=== PATIENT | male | born 2000 | race Two or more races ===

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

== ENCOUNTER 2021-02-09 20:09 | Emergency (ER) | payer MEDICAID, SELFPAY ==
--- NOTE | ~2021-02-09 | XR_ITS ---
EXAMINATION: XR CHEST CLINICAL INFORMATION: Fever COMPARISON: 08/03/2020 TECHNIQUE: Frontal view of the chest was obtained. FINDINGS: No significant abnormality is noted involving the heart, lungs, mediastinum, bony thorax or soft tissues. Lungs are better expanded when compared to prior study. XR/XR chest 1V IMPRESSION: Unremarkable examination.
[2021-02-09 20:25] VITALS: BP 138/71; PULSE 90; RESP 20; TEMP 39.5; O2SAT 96; BMI 38.5
[2021-02-09] MEDS: Acetaminophen 325 MG TABLET 650 MG PO (20:30)
--- NOTE | 2021-02-09 20:32 | PC.NURSE ---
Covid swab obtained and sent. Pt medicated with Tylenol due to oral temp of 103.1
--- NOTE | 2021-02-09 21:35 | ED_ITS ---
HPI - Fever General Chief Complaint: Fever Stated Complaint: flu like Time Seen by Provider: 02/09/21 21:23 Source: patient Mode of arrival: ambulatory Limitations: no limitations History of Present Illness HPI Narrative: Patient comes emergency room complaining of fever, headache, sore throat. All his symptoms started today. Patient denies cough, no shortness of breath. Patient states that he took NyQuil during the day to try to help him sleep with no relief. Patient also complaining of congestion. MD elicited complaint: fever Related Data Previous Rx's Medication Instructions Recorded amoxicillin 500 mg PO Q12H #20 tab 08/03/20 ondansetron HCl [Zofran] 4 mg PO Q8H PRN #14 tab 08/03/20 azithromycin 500 mg PO DAILY 6 Days #6 tab 02/09/21 Allergies Allergy/AdvReac Type Severity Reaction Status Date / Time No Known Allergies Allergy Verified 08/03/20 09:47 [No Known Allergies*] Review of Systems Review of Systems: Constitutional : No Weight loss, No Fever, No Chills, No Night Sweats, No Fatigue, No Malaise ENT/Mouth : No Hearing loss, No Ear Pain, complaining of nasal congestion, no hoarseness, complaining of sore throat, No Rhinorrhea, No Swallowing Difficulty Eyes: No Eye Pain, No Swelling, No Redness, No Foreign Body, No Discharge, No Vision Changes Cardiovascular : No Chest Pain, No SOB, No Dyspnea on Exertion, No Orthopnea, No Edema, No Palpitations Respiratory : No Cough, No Sputum, No Wheezing, No Smoke Exposure, No Dyspnea Gastrointestinal : No Nausea, No Vomiting, No Diarrhea, No Constipation, No abdominal Pain, No Hematochezia, No Melena Genitourinary : no irregular bleeding, No Dysuria, No Urinary Frequency, No Hematuria, No Urinary Incontinence, No Urgency, No Flank Pain, No Urinary Flow Changes, No Hesitancy Musculoskeletal : No joint pain, No Myalgias, No Joint Swelling Skin : No Skin Lesions, No rash Neuro : No Weakness, No Numbness, No Paresthesias, No Loss of Consciousness, No Dizziness, No Headache Psych : No Anxiety/Panic, No Depression, No SI/HI/AH/VH, No Social Issues, Heme/Lymph: No Bruising, No Bleeding,No Lymphadenopathy Endocrine : No Polyuria, No Polydipsia, No Temperature Intolerance PMFSH Social History Social History Alcohol intake: never Smoking Status: Heavy tobacco smoker Advance Directives: No Advance Directives Information Provided: No Physical Exam Vital Signs: Vital Signs: Last Vital Signs Temp 103.1 F H 02/09/21 20:25 Pulse 90 02/09/21 20:25 Resp 20 02/09/21 20:25 BP 138/71 02/09/21 20:25 Pulse Ox 96 02/09/21 20:25 Body Mass Index 38.5 Appearance: Alert. Oriented X3. No acute distress. Eyes: Pupils equal, round and reactive to light. ENT: Erythematous pharynx, no exudates Neck: Normal inspection. Neck supple. No lymph nodes noted. No crepitus CVS: Normal heart rate and rhythm. Pulses normal. Normal S1 and S2 Respiratory: No respiratory distress. Breath sounds normal. No Wheezing. No rales Abdomen: Soft and nontender. No rigidity. No distention. good BS x4 Skin: Skin warm and dry. Normal skin color. Normal skin turgor. Extremities: No lower extremity edema. No lower extremity edema. No La cerations. No Rash Neuro: Oriented X 3. No motor deficit. No sensory deficit. Moving all extermities. No slurred speech. Course Course Course Narrative: I discussed the labs with the patient. Strep is pending. Given his high fever, previous infections of pharyngitis, we will go ahead and treat with antibiotic. MDM - Fever Lab Data Labs: Lab Results 02/09/21 Range/Units 20:31 COVID-19 ([facility]) Negative (Negative) COVID-19 Clin Com See Note Imaging Data Chest x-ray: Radiologist's impression: No significant abnormality is noted involving the heart, lungs, mediastinum, bony thorax or soft tissues. Lungs are better expanded when compared to prior study. XR/XR chest 1V IMPRESSION: Unremarkable examination. Discharge Plan Discharge Clinical Impression: Pharyngitis Qualifiers: Pharyngitis/tonsillitis etiology: unspecified etiology Qualified Code(s): J02.9 - Acute pharyngitis, unspecified Patient Disposition: Home, Self-Care Instructions: Pharyngitis (ED) Additional Instructions: Please follow-up with your primary care physician tomorrow. If you have any worsening or new symptoms, please return to the emergency room or call 911 Prescriptions: New azithromycin 500 mg tablet 500 mg PO DAILY 6 Days Qty: 6 RF: 0 No Action amoxicillin 500 mg tablet 500 mg PO Q12H Qty: 20 RF: 0 ondansetron HCl [Zofran] 4 mg tablet 4 mg PO Q8H PRN (Reason: nausea and vomiting) Qty: 14 RF: 0
[2021-02-09 21:36] LABS: COVID-19 Test Negative (Negative); IDNOW Serial# 9DD0AD1C
[2021-02-09] MEDS: Ibuprofen 600 MG TABLET PO (22:00)
[2021-02-09 23:27] VITALS: PULSE 86; RESP 16
[2021-02-09] MEDS: Amoxicillin/Potassium Clav 875 MG TABLET PO (23:28)
[2021-02-09] MEDS: Azithromycin 500 MG TABLET PO (23:30)
[2021-02-09 23:43] LABS: IDNOW Serial# 08D9AD1C; Strep A Nucleic Acid Positive (Negative)
== END 2021-02-10 00:05 | disposition home or self-care (01) ==
PROVIDERS: Emergency Provider Emergency Medicine
DX: J02.0 Streptococcal pharyngitis (principal); Z20.822 Contact with and (suspected) exposure to COVID-19; R50.9 Fever, unspecified; R51.9 Headache, unspecified; F17.210 Nicotine dependence, cigarettes, uncomplicated
CPT/HCPCS: 36415; 71045; 87635; 99283

== ENCOUNTER 2021-05-14 21:18 | Emergency (ER) | payer MEDICAID, SELFPAY ==
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
[2021-05-14 22:01] VITALS: BP 114/78; PULSE 95; RESP 16; TEMP 37.1; O2SAT 99; BMI 37.5
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
[2021-05-14] MEDS: Diphth,Pertus(ACell),Tet Adult 0.5 ML SYRINGE IM (23:51)
--- NOTE | 2021-05-14 23:51 | PC.NURSE ---
PT MEDICATED WITH TETANUS TO LEFT UPPER ARM. PT AWAITING FOR MD TO LOOK AT FINGER.
[2021-05-14] MEDS: Lidocaine HCl 1 % 20 ML VIAL SUBCUT (23:52)
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
[2021-05-15] MEDS: oxyCODONE HCl Immed Release 5 MG TABLET PO (02:44)
[2021-05-15] MEDS: Ibuprofen 800 MG TABLET PO (02:44)
[2021-05-15] MEDS: Ondansetron ODT 4 MG TAB.RAPDIS TRANSLINGU (02:53)
[2021-05-15] MEDS: Amoxicillin/Potassium Clav 875 MG TABLET PO (02:53)
[2021-05-15 02:56] VITALS: BP 120/87; PULSE 90; RESP 18; O2SAT 97
== END 2021-05-15 02:58 | disposition home or self-care (01) ==
PROVIDERS: Emergency Provider Emergency Medicine
DX: L03.011 Cellulitis of right finger (principal); S61.256A Open bite of right little finger without damage to nail, initial encounter; S60.416A Abrasion of right little finger, initial encounter; Y04.1XXA Assault by human bite, initial encounter; Y93.89 Activity, other specified; Y92.9 Unspecified place or not applicable; Y99.9 Unspecified external cause status
CPT/HCPCS: 73140; 90471; 90715; 99284

== ENCOUNTER 2021-05-15 18:31 | Emergency (ER) | payer MEDICAID, SELFPAY ==
[2021-05-15 18:33] VITALS: BP 140/84; PULSE 97; RESP 18; TEMP 37; O2SAT 100; BMI 39.9
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
[2021-05-15 20:00] VITALS: BP 138/76; PULSE 90; RESP 18; TEMP 36.8; O2SAT 98
[2021-05-15] MEDS: Oxymetazoline HCl 0.05 % Nasal 15 ML SPRAY 2 SPRAY NOSTRIL-B (20:07)
--- NOTE | 2021-05-15 20:09 | PC.NURSE ---
patient a&ox3, family at bedside, vss stable, provider medicated patient, discharge pending
== END 2021-05-15 20:13 | disposition home or self-care (01) ==
PROVIDERS: Emergency Provider Emergency Medicine
DX: R04.0 Epistaxis (principal); Z79.899 Other long term (current) drug therapy
CPT/HCPCS: 99283; 99284

== ENCOUNTER → 2021-05-16 11:59 | Outpatient (BNVA) | payer MEDICAID, SELFPAY | PROVIDERS: Visit Provider Physician Assistant | DX: S61.256A Open bite of right little finger without damage to nail, initial encounter (principal); W50.3XXA Accidental bite by another person, initial encounter | CPT/HCPCS: 99202 ==

== ENCOUNTER 2021-05-17 09:18 | Day surgery (SDC) | payer MEDICAID, SELFPAY ==
[2021-05-17] VITALS (9 sets, daily range): BP systolic 126–145; BP diastolic 77–90; PULSE 67–94; RESP 16–18; TEMP 36.4–36.5; O2SAT 93–98; BMI 38.7
--- NOTE | ~2021-05-17 | XR_ITS ---
EXAMINATION: XR CHEST CLINICAL INFORMATION: Clinical question of aspiration pneumonia. COMPARISON: Radiographs dated 02/09/2021. TECHNIQUE: Frontal view of the chest was obtained. FINDINGS: No significant abnormality is noted involving the heart, lungs, mediastinum, bony thorax or soft tissues. Lung volumes are somewhat diminished, with generalized crowding of bronchovascular markings. XR/XR chest 1V IMPRESSION: Unremarkable examination.
[2021-05-17] MEDS: Lactated Ringers 1,000 ML 100 ML IVCONT (10:32)
--- NOTE | 2021-05-17 11:32 | MHC.SHP ---
Pre-Procedural Eval Section A Date of Service: 05/17/21 The patient is an INPATIENT: No Changes since office visit: No Cold of Flu in the past 2 weeks, No New Medical Problems, No Changes in Medication and No Patient answered all questions The History & Physical has been completed within 30 days and I have reviewed it.: Yes Section B Chief Complaint: bite right small finger Allergies: Allergies Allergy/AdvReac Type Severity Reaction Status Date / Time No Known Allergies Allergy Verified 05/16/21 12:11 [No Known Allergies*] Plan I have reviewed the history and physical and performed a pertinent physical examination on my patient. No changes have occurred unless specified.
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
--- NOTE | 2021-05-17 13:57 | PC.NURSE ---
PATIENT LAYING ON LEFT SIDE PER HIS COMFORT. HOB 20 DEGREES. NO SOB OR RESP DISTRESS. NO ACTIVE BLEEDING. RIGHT UPPER HAND ELEVATED WITH ICE PACK. DRY AND INTACT.
--- NOTE | 2021-05-17 14:03 | PC.NURSE ---
ANESTHESIA BY BEDSIDE REEVAL PATIENT. MD RIVAS BY BEDSIDE SPEAKING TO PATIENT. CALLED PHARMACY FOR NEW ANTIBIOTIC ORDER BEFORE PATIENT LEAVES.
--- NOTE | 2021-05-17 14:04 | PC.NURSE ---
PATIENT STATES HES BEEN HAVING NOSE BLEEDS FOR THE LAST THREE DAYS.
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
[2021-05-17] MEDS: Ampicillin Sodium/Sulbactam Na 3 GM in 0.9 % Sodium Chloride 100 ML IV (14:22)
== END 2021-05-17 15:40 | disposition home or self-care (01) ==
PROVIDERS: Visit Provider Orthopaedic Surgery
PROC: (CPT 26080; principal; 2021-05-17 13:00)
DX: S61.256A Open bite of right little finger without damage to nail, initial encounter (principal); L08.9 Local infection of the skin and subcutaneous tissue, unspecified; B95.0 Streptococcus, group A, as the cause of diseases classified elsewhere; Y04.1XXA Assault by human bite, initial encounter; Y93.89 Activity, other specified; Y92.9 Unspecified place or not applicable; Y99.8 Other external cause status; E66.9 Obesity, unspecified
CPT/HCPCS: 26080; 26020; 71045; 87071; 87147; 87205; J0295; J0690; J1100; J2250

== ENCOUNTER → 2021-05-20 11:00 | Outpatient (BNVA) | payer MEDICAID, SELFPAY | PROVIDERS: PCP Nurse Practitioner Primary Care; Visit Provider Physician Assistant | DX: S61.259D Open bite of unspecified finger without damage to nail, subsequent encounter (principal); W50.3XXA Accidental bite by another person, initial encounter | CPT/HCPCS: 99212 ==

== ENCOUNTER 2021-06-08 18:21 | Emergency (ER) | payer MEDICAID, SELFPAY ==
--- NOTE | ~2021-06-08 | XR_ITS ---
EXAMINATION: XR FINGER, RIGHT CLINICAL INFORMATION: Fifth finger trauma. Evaluate for fracture. COMPARISON: Right finger radiographs dated 05/14/2021. TECHNIQUE: PA view of the right hand as well as oblique and lateral views of the right small finger. FINDINGS: Mildly displaced, oblique fracture through the base of the 2nd middle phalanx which contacts the anterior articular surface. Findings are new when compared to the prior examination. Prominent circumferential soft tissue swelling throughout the small finger. No abnormal soft tissue calcification or radiopaque foreign body. XR/XR finger RT min 2V IMPRESSION: 1. Mildly displaced, oblique fracture through the volar base of the 2nd middle phalanx which contacts the articular surface. 2. Prominent 5th finger soft tissue swelling.
[2021-06-08 19:57] VITALS: BP 131/78; PULSE 83; RESP 18; TEMP 36.8; O2SAT 98; BMI 32.5
[2021-06-08] MEDS: oxyCODONE HCl Immed Release 5 MG TABLET PO (20:18)
[2021-06-08 20:30] VITALS: BP 128/60; PULSE 66; RESP 16; TEMP 35.5; O2SAT 98
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
== END 2021-06-08 21:48 | disposition home or self-care (01) ==
PROVIDERS: Emergency Provider Emergency Medicine Emergency Medical Services; PCP Nurse Practitioner Primary Care
DX: L03.011 Cellulitis of right finger (principal); Z79.899 Other long term (current) drug therapy
CPT/HCPCS: 73140; 99283; 99284

== ENCOUNTER 2021-11-01 17:35 | Emergency (ER) | payer MEDICAID, SELFPAY ==
[2021-11-01 18:03] VITALS: BP 123/78; PULSE 99; RESP 18; TEMP 37; O2SAT 98; BMI 38.7
--- NOTE | 2021-11-01 18:41 | ED_ITS ---
HPI - Ear Problem General Chief complaint: Ear Problems Stated complaint: right ear blocked Time Seen by Provider: 11/01/21 18:30 Source: patient Mode of arrival: ambulatory Limitations: no limitations History of Present Illness HPI Narrative: 21-year-old male presenting to the ED with complaints of right ear pain/decreased hearing since yesterday reports that he has been using Q-tips without any symptomatic relief. Denies any other symptoms including fevers, sore throat, nasal congestion, cough, chest pain shortness of breath, nausea/vomiting/diarrhea constipation abdominal pain or any rashes or any recent swimming or any other symptoms complaints or concerns at this time. MD Complaint: ear pain and decreased hearing Location: right ear Duration: constant Severity: mild Relieving factors: nothing Exacerbating factors: nothing Discharge from ear: no Treatment prior to arrival: attempt at ear wax removal (With Q-tip) Related Data Previous Rx's Medication Instructions Recorded amoxicillin 500 mg tablet 500 mg PO Q12H #20 tab 08/03/20 ondansetron HCl 4 mg tablet 4 mg PO Q8H PRN #14 tab 08/03/20 (Zofran) azithromycin 500 mg tablet 500 mg PO DAILY 6 Days #6 tab 02/09/21 amoxicillin 875 mg-potassium 1 tab PO Q12H 10 Days #20 tab 05/15/21 clavulanate 125 mg tablet (Augmentin) ibuprofen 800 mg tablet 800 mg PO Q8H PRN #30 tab 05/15/21 amoxicillin 875 mg-potassium 1 tab PO BID 10 Days #20 tab 05/16/21 clavulanate 125 mg tablet (Augmentin) oxycodone-acetaminophen 5 mg-325 1 tab PO Q6H PRN #10 tab 05/17/21 mg tablet doxycycline hyclate 100 mg tablet 100 mg PO Q12H 7 Days #14 tab 06/08/21 oxycodone 5 mg tablet 5 mg PO Q4H PRN #10 tab 06/08/21 amoxicillin 875 mg-potassium 1 tab PO BID 10 Days #20 tab 11/01/21 clavulanate 125 mg tablet (Augmentin) Allergies Allergy/AdvReac Type Severity Reaction Status Date / Time No Known Allergies Allergy Verified 11/01/21 18:02 [No Known Allergies*] Review of Systems Verdana 4l Review of Systems: Verdana 4d Verdana 4d Constitutional : No Weight loss, No Fever, No Chills, No Night Sweats, No Fatigue, No Malaise ENT/Mouth : + ear pain/decreased Hearing loss, No Nasal Congestion, No Sinus Pain, No Hoarseness, No sore throat, No Rhinorrhea, No Swallowing DifficultyDifficulty Eyes: No Eye Pain, No Swelling, No Redness, No Foreign Body, No Discharge, No Vision Changes Cardiovascular : No Chest Pain, No SOB, No Dyspnea on Exertion, No Orthopnea, No Edema, No Palpitations Respiratory : No Cough, No Sputum, No Wheezing, No Smoke Exposure, No Dyspnea Gastrointestinal : No Nausea, No Vomiting, No Diarrhea, No Constipation, No abdominal Pain, No Hematochezia, No Melena Genitourinary : no irregular bleeding, No Dysuria, No Urinary Frequency, No Hematuria, No Urinary Incontinence, No Urgency, No Flank Pain, No Urinary Flow Changes, No Hesitancy Musculoskeletal : No joint pain, No Myalgias, No Joint Swelling Skin : No Skin Lesions, No rash Neuro : No Weakness, No Numbness, No Paresthesias, No Loss of Consciousness, No Dizziness, No Headache Psych : No Anxiety/Panic, No Depression, No SI/HI/AH/VH, No Social Issues, Heme/Lymph: No Bruising, No Bleeding,No Lymphadenopathy Endocrine : No Polyuria, No Polydipsia, No Temperature Intolerance Yes all other systems are reviewed and are negative [facility] Past Medical History Attestation statement: The following information was validated with the patient. 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 Blood pressure normal. Heart rate normal. Respiration rate normal. Temperature normal. Oxygen saturation normal. Appearance: Alert. Oriented X3. No acute distress. Head: Normal external exam. Normocephalic. Atraumatic. Eyes: PERRLA. EOMI. Conjunctiva and sclera normal. Eyelids normal. ENT: Bilateral cerumen impaction noted. Patient is now status post cerumen impaction removal and bilateral tympanic membranes are intact although they are erythematous and bulging with decreased light reflex consistent with otitis media. The tympanic membrane is not perforated. Pharynx normal. Uvula midline. Moist mucous membranes. No trismus noted. No drooling noted. No muffled voice noted. Neck: Normal inspection. Neck supple. FROM. No adenopathy. Thyroid Normal. No meningeal signs. No neck mass noted. CVS: Normal heart rate and rhythm. Heart sound normal. Pulses normal throughout. No murmurs/rales/gallops. Respiratory: No respiratory distress. Painless inspiration. Breath sounds normal. No wheezes/rales/rhonchi noted. Chest nontender. No accessory muscle usage noted or decreased air movement noted. Back: Full range of motion noted. No rashes/lesion/induration/fluctuance or signs of infection noted. Skin: Skin warm and dry. Normal skin color. Normal skin turgor. No rashes/lesions/lacerations noted. Extremities: Extremities exhibit normal range of motion. Extremities nontender. Neuro: Oriented X 3. No motor deficit. No sensory deficit. Reflexes normal. Normal steady gait. No focal neuro deficits noted. Vascular: + radial pulses Normal cap refill. No cyanosis noted to upper extremity nails Course Course Course Narrative: 21-year-old male presenting to the ED with complaints of right ear pain/decreased hearing since yesterday reports that he has been using Q-tips without any symptomatic relief. Denies any other symptoms including fevers, sore throat, nasal congestion, cough, chest pain shortness of breath, nausea/vomiting/diarrhea constipation abdominal pain or any rashes or any recent swimming or any other symptoms complaints or concerns at this time. Patient now status post bilateral cerumen impaction removal with peroxide. Patient tolerated procedure well. No complications. Patient noted to have bilateral otitis media. Tympanic membranes are intact not perforated. Patient denies any other symptoms. Therefore at this time will DC home with antibiotics for bilateral infection instructions return if any new or worsening symptoms to follow up with primary care provider. Patient understands agrees with this plan. Procedures Ear Wax Removal Both Ears: Cerumenolytic Used: other (Peroxide) Results: Re-examined: cerumen removed completely TM Examination: TM(s) erythematous and other (Tympanic membranes are intact not perforated after cerumen removal bilateral) Ear Canal Exam: atraumatic Patient Tolerated Procedure: well and no complications Complications: no problems Technique: ear canal irrigated [facility] - Ear Medical Records Attestation: I reviewed the patient's medical records. Discharge Plan Discharge Clinical Impression: Otitis media, Bilateral impacted cerumen Patient Disposition: Home, Self-Care Instructions: Ear Infection (ED) Prescriptions: New amoxicillin-pot clavulanate [Augmentin] 875-125 mg tablet 1 tab PO BID 10 Days Qty: 20 0RF No Action amoxicillin 500 mg tablet 500 mg PO Q12H Qty: 20 0RF ondansetron HCl [Zofran] 4 mg tablet 4 mg PO Q8H PRN (Reason: nausea and vomiting) Qty: 14 0RF azithromycin 500 mg tablet 500 mg PO DAILY 6 Days Qty: 6 0RF amoxicillin-pot clavulanate [Augmentin] 875-125 mg tablet 1 tab PO Q12H 10 Days Qty: 20 0RF ibuprofen 800 mg tablet 800 mg PO Q8H PRN (Reason: pain) Qty: 30 0RF oxycodone-acetaminophen 5-325 mg tablet 1 tab PO Q6H PRN (Reason: pain) Qty: 10 0RF doxycycline hyclate 100 mg tablet 100 mg PO Q12H 7 Days Qty: 14 0RF oxycodone 5 mg tablet 5 mg PO Q4H PRN (Reason: pain) Qty: 10 0RF Rx Instructions: Patient may request partial fill amoxicillin-pot clavulanate [Augmentin] 875-125 mg tablet 1 tab PO BID 10 Days Qty: 20 0RF Referrals: [facility] [Primary Care Provider] - 2 days Print Language: Greenlandic
== END 2021-11-01 19:13 | disposition home or self-care (01) ==
PROVIDERS: Emergency Provider Internal Medicine
DX: H66.93 Otitis media, unspecified, bilateral (principal); H61.23 Impacted cerumen, bilateral
CPT/HCPCS: 69209; 99283

== ENCOUNTER 2022-01-17 20:21 | Emergency (ER) | payer MEDICAID, SELFPAY ==
[2022-01-17 20:58] VITALS: BP 109/69; PULSE 109; RESP 20; TEMP 37.1; O2SAT 98; BMI 39.9
[2022-01-17 21:35] LABS: COVID-19 Test Negative (Negative); IDNOW Serial# 16C4AD1C
[2022-01-17 21:36] LABS: Influenza A Positive (Negative); Influenza B2 Negative (Negative)
== END 2022-01-17 22:09 | disposition left against medical advice (07) ==
PROVIDERS: Emergency Provider Emergency Medicine
DX: M79.10 Myalgia, unspecified site (principal); R11.2 Nausea with vomiting, unspecified; Z20.822 Contact with and (suspected) exposure to COVID-19
CPT/HCPCS: 87502; 87635; 99282; 99283

== ENCOUNTER 2022-04-06 10:51 | Emergency (ER) | payer MEDICAID, SELFPAY ==
--- NOTE | ~2022-04-06 | XR_ITS ---
EXAMINATION: XR RIBS, LEFT CLINICAL INFORMATION: Rib pain after injury COMPARISON: Chest radiograph 05/17/2021 TECHNIQUE: Single view chest with 4 additional views of the left ribs were obtained. FINDINGS: Lungs are clear. No consolidation, pneumothorax, or pleural effusion. The cardiomediastinal silhouette and pulmonary vasculature are normal. Osseous structures are unremarkable. Ribs are intact. No fractures are identified. XR/XR ribs LT min 3V w CXR1V IMPRESSION: Unremarkable examination.
[2022-04-06 11:35] VITALS: BP 119/70; PULSE 85; RESP 16; TEMP 36.4; O2SAT 98; BMI 38.7
--- NOTE | 2022-04-06 12:12 | ED.GENADULT ---
HPI - General Adult General Chief complaint: General Medical Stated complaint: L rib pain Time Seen by Provider: 04/06/22 12:12 Source: patient Mode of arrival: ambulatory Limitations: no limitations History of Present Illness HPI narrative: Patient is a 22 year old male presenting to the emergency department today with left sided rib pain. Patient states that he was playing basketball yesterday when he tripped and fell, then was kicked by the person he was playing with, in the left ribs. Patient denies hitting hit head with the incident. Patient denies any loss of consciousness from the incident. Patient denies any dizziness, lightheadedness, abdominal pain, nausea, vomiting, fever, chills, blurry vision, double vision, loss of vision, chest pain, difficulty breathing, shortness of breath, back pain, night sweats, pain with urination, increased urinary frequency, increased urinary urgency, blood in his urine or stool, syncope or a near syncopal episode, recent trauma or falls, bowel incontinence, bladder incontinence, bowel retention, bladder retention, or any other complaints at this time. Onset (ago): day(s) (1) Location: left (torso) Radiation: non-radiation Severity: mild Severity scale (1-10): 1 Quality: dull Pain Consistency: constant Relieving factors: none Exacerbating factors: none Associated symptoms: denies other symptoms Treatments prior to arrival: none Related Data Previous Rx's Medication Instructions Recorded amoxicillin 500 mg tablet 500 mg PO Q12H #20 tabs 08/03/20 ondansetron HCl 4 mg tablet 4 mg PO Q8H PRN nausea and 08/03/20 (Zofran) vomiting #14 tabs azithromycin 500 mg tablet 500 mg PO DAILY 6 days #6 tabs 02/09/21 amoxicillin 875 mg-potassium 1 tab PO Q12H 10 days #20 tabs 05/15/21 clavulanate 125 mg tablet (Augmentin) ibuprofen 800 mg tablet 800 mg PO Q8H PRN pain #30 tabs 05/15/21 amoxicillin 875 mg-potassium 1 tab PO BID 10 days #20 tabs 05/16/21 clavulanate 125 mg tablet (Augmentin) oxycodone-acetaminophen 5 mg-325 1 tab PO Q6H PRN pain #10 tabs 05/17/21 mg tablet doxycycline hyclate 100 mg tablet 100 mg PO Q12H 7 days #14 tabs 06/08/21 oxycodone 5 mg tablet 5 mg PO Q4H PRN pain #10 tabs 06/08/21 amoxicillin 875 mg-potassium 1 tab PO BID 10 days #20 tabs 11/01/21 clavulanate 125 mg tablet (Augmentin) Allergies Allergy/AdvReac Type Severity Reaction Status Date / Time No Known Allergies Allergy Verified 11/01/21 18:02 [No Known Allergies*] Review of Systems Constitutional: Constitutional: Reports no additional constitutional complaints, Denies chills, Denies fever(s) and Denies night sweats Eyes: Eyes: Reports no additional eye complaints, Denies blurry vision, Denies change in vision, Denies diplopia, Denies eye discharge, Denies loss of vision and Denies eye pain ENT: Denies dizziness Cardiovascular: Cardiovascular: Reports no additional cardiovascular complaints, Denies chest pain, Denies lightheadedness, Denies Loss of Consciousness and Denies dyspnea Respiratory: Respiratory: Reports no additional respiratory complaints and Denies dyspnea Gastrointestinal: Gastrointestinal: Reports no additional gastrointestinal complaints, Denies abdominal pain, Denies melena, Denies hematochezia, Denies change in bowel habits and Denies change in stool character Genitourinary: Genitourinary: Reports no additional male genitourinary complaints, Denies hematuria, Denies oliguria, Denies difficulty urinating, Denies dysuria, Denies urinary frequency, Denies urinary hesitancy, Denies urinary incontinence and Denies urinary urgency Musculoskeletal: Musculoskeletal: Reports no additional musculoskeletal complaints, Denies numbness and Denies tingling Comments: left torso pain Neurologic: Denies dizziness, Denies loss of vision, Denies numbness and Denies tingling Psychiatric: Psychiatric: Reports no additional psychiatric complaints Endocrine: Endocrine: Reports no additional endocrine complaints Hematologic/Lymphatic: Hematologic/Lymphatic: Reports no additional hematologic/lymphatic complaints Allergic/Immunologic: Allergic/Immunologic: Reports no additional allergic/immunologic complaints PMFSH Past Medical History Attestation statement: The following information was validated with the patient. Source: old records reviewed Medical History Epistaxis, recurrent Obesity (BMI 35.0-39.9 without comorbidity) Surgical History Hx of appendectomy Social History Social History Alcohol intake: never Patient Tobacco Use Status: Never used Tobacco Advance Directives: Yes Advance Directives Information Provided: Yes Advance Directives on File: No Current occupational status: previously employed Current occupation: rt handed Physical Exam ED Vital Signs: Vital Signs - 24 hr 04/06/22 11:35 Temperature 97.6 F Pulse Rate 85 Respiratory Rate 16 Blood Pressure 119/70 Pulse Oximetry 98 Oxygen Delivery Method Room Air BMI result Body Mass Index 38.7 Const General: cooperative, no acute distress, alert and awake Nutritional Appearance: well nourished Orientation/consciousness: patient oriented x3 Limitations: no limitations HENMT Head: Yes normal to inspection and Yes atraumatic Ears: hearing grossly normal bilaterally and external ears normal General nose exam: Normal external nose present, no nasal discharge noted and no epistaxis Face and sinus: Yes normal facial exam, No abrasion and No laceration Mouth: Normal oral and palatal mucosa present, no drooling and no muffled voice Eyes General: appearance normal, both eyes and all related structures Periorbital: periorbital findings normal Eyelids: Yes eyelids normal Conjunctivae: conjunctivae normal Pupils: Equal, round and reactive pupils present EOM: EOMs intact bilaterally Neck Neck: Yes normal visual inspection, Yes full ROM and Yes no lymphadenopathy Chest Chest palpation & inspection: normal inspection of the chest Resp Effort & Inspection: normal respiratory effort and able to speak in complete sentences Auscultation: clear to auscultation bilaterally Cardio Rate: regular rate Rhythm: regular rhythm GI Inspection: Yes normal to inspection Neuro General: patient oriented x3 and moves all extremities Cranial nerves: Yes Equal, round and reactive pupils present Cognition (Neuro): normal cognition Motor exam (neuro): 5/5 motor strength present throughout Sensory Exam: Normal double simultaneous stimulation for sensation Coordination: [id number] test normal Extrem General: Yes normal to inspection, Yes full ROM and Yes capillary refill normal Psych Appearance: grossly normal Mental Status: mental status grossly normal Affect: normal affect Attitude: cooperative Thought process: Normal thought process present Thought content: Normal thought content present Insight: Good insight present (Psych) Medical Decision Making MDM Narrative Medical decision making narrative: Patient is a 22 year old male presenting to the emergency department today with left rib pain. Patient's physical exam was unremarkable. Patient's chest x-ray showed no acute process. I explained my physical exam findings as well as all test results to the patient. I answered all questions asked by the patient. I stressed the importance of the patient taking his medication as prescribed. I stressed the importance of the patient following up with his primary care provider. I stressed the importance of the patient returning to the emergency department immediately if his symptoms were to worsen or if he were to develop any dizziness, shortness of breath, difficulty breathing, chest pain, blurry vision, loss of vision, nausea, vomiting, abdominal pain, fever, chills, back pain, or any other complaints. Patient verbalized agreement and understanding with this treatment plan and discharge. Differential Diagnosis Differential Diagnosis: rib contusion, rib fracture Medical Records Medical records reviewed: Yes I reviewed the patient's medical records. Imaging Data Chest x-ray: Attestation: I personally reviewed and interpreted this imaging study as follows: My impression: No acute process. Radiologist's impression: EXAMINATION: XR RIBS, LEFT CLINICAL INFORMATION: Rib pain after injury COMPARISON: Chest radiograph 05/17/2021 TECHNIQUE: Single view chest with 4 additional views of the left ribs were obtained. FINDINGS: Lungs are clear. No consolidation, pneumothorax, or pleural effusion. The cardiomediastinal silhouette and pulmonary vasculature are normal. Osseous structures are unremarkable. Ribs are intact. No fractures are identified. XR/XR ribs LT min 3V w CXR1V IMPRESSION: Unremarkable examination. Dictated By: Seymour Spangler MD Signed By: Electronically signed by Seymour Spangler MD 04/06/22 1788 Discharge Plan Discharge Clinical Impression: Pain in rib Patient Disposition: Home, Self-Care Instructions: Chest Pain (DC) Additional Instructions: Follow up with your primary care provider. Return to the emergency department immediately if your symptoms worsen or if you develop any dizziness, shortness of breath, difficulty breathing, chest pain, blurry vision, loss of vision, nausea, vomiting, abdominal pain, fever, chills, back pain, or any other complaints. Prescriptions: No Action amoxicillin 500 mg tablet 500 mg PO Q12H Qty: 20 0RF ondansetron HCl [Zofran] 4 mg tablet 4 mg PO Q8H PRN (Reason: nausea and vomiting) Qty: 14 0RF azithromycin 500 mg tablet 500 mg PO DAILY 6 Days Qty: 6 0RF amoxicillin-pot clavulanate [Augmentin] 875-125 mg tablet 1 tab PO Q12H 10 Days Qty: 20 0RF ibuprofen 800 mg tablet 800 mg PO Q8H PRN (Reason: pain) Qty: 30 0RF oxycodone-acetaminophen 5-325 mg tablet 1 tab PO Q6H PRN (Reason: pain) Qty: 10 0RF doxycycline hyclate 100 mg tablet 100 mg PO Q12H 7 Days Qty: 14 0RF oxycodone 5 mg tablet 5 mg PO Q4H PRN (Reason: pain) Qty: 10 0RF Rx Instructions: Patient may request partial fill amoxicillin-pot clavulanate [Augmentin] 875-125 mg tablet 1 tab PO BID 10 Days Qty: 20 0RF amoxicillin-pot clavulanate [Augmentin] 875-125 mg tablet 1 tab PO BID 10 Days Qty: 20 0RF Referrals: [facility] [place] Family Medicine [Provider Group] (Call to establish and follow up with a primary care provider. If you already have a primary care provider, please follow up with them. ) [facility] [place] [facility] [Provider Group] (Call to establish and follow up with a primary care provider. If you already have a primary care provider, please follow up with them. ) [facility] [place] Primary [facility] [Provider Group] (Call to establish and follow up with a primary care provider. If you already have a primary care provider, please follow up with them. ) Stand Alone Forms: Work/School Release Interventions: ED Discharge Assessment Last Done: 04/06/22 13:55 Discharge Date/Time: 04/06/22 13:57 Print Language: Croatian
== END 2022-04-06 13:57 | disposition home or self-care (01) ==
PROVIDERS: Emergency Provider Emergency Medicine
DX: M94.0 Chondrocostal junction syndrome [Tietze] (principal); R07.81 Pleurodynia; Z79.899 Other long term (current) drug therapy
CPT/HCPCS: 71101; 99282

== ENCOUNTER 2022-04-20 11:10 | Emergency (ER) | payer MEDICAID, SELFPAY | END 2022-04-20 15:40 | disposition left against medical advice (07) | PROVIDERS: Emergency Provider Emergency Medicine | DX: M79.10 Myalgia, unspecified site (principal); R11.10 Vomiting, unspecified ==

== ENCOUNTER 2022-05-23 16:38 | Emergency (ER) | payer MEDICAID, SELFPAY ==
[2022-05-23 18:38] VITALS: BP 122/69; PULSE 85; RESP 18; TEMP 36.6; O2SAT 98; BMI 38.7
[2022-05-23 18:48] LABS: MANUAL DIFF FLAG NO
[2022-05-23 18:59] LABS: Basophils Percent Auto 0.5 % (0-2); Eosinophils Absolute Auto 0.1 X10*3/uL (0.0-0.4); Eosinophils Percent Auto 1.4 % (0-4); Hematocrit 40.5 % (42.0-52.0); Hemoglobin 14.1 g/dl (14.0-18.0); Imm Gran Abs Auto 0.07 X10*3/uL (0.00-0.03); Imm Gran Pct Auto 0.8 % (0.0-0.4); Lymphocytes Absolute Auto 2.3 X10*3/uL (1.2-4.9); Lymphocytes Percent Auto 25.8 % (20-40); Mean Corpuscular HGB Conc 34.8 g/dl (31.0-36.0); Mean Corpuscular Hemoglobin 29.6 pg (27.0-33.0); Mean Corpuscular Volume 85.1 fL (80.0-98.0); Mean Platelet Volume 10.5 fL (9.4-12.4); Monocytes Absolute Auto 0.6 X10*3/uL (0.1-1.2); Monocytes Percent Auto 7.3 % (2-11); Neutrophils Absolute Auto 5.6 x10*3/uL (2.0-8.3); Neutrophils Percent Auto 64.2 % (45-73); Platelet Count 224 X10*3/uL (160-400); Red Blood Count 4.76 X10*6/uL (4.60-5.80); Red Cell Distribution Width 12.8 % (11.0-16.0); White Blood Count 8.8 X10*3/uL (4.8-10.8)
[2022-05-23 19:04] LABS: COVID-19 Test Negative (Negative); IDNOW Serial# 16C4AD1C
[2022-05-23 19:05] LABS: Alanine Aminotransferase 26 U/L (0-40); Albumin Level 4.2 g/dL (3.5-5.0); Alkaline Phosphatase 86 U/L (39-117); Anion Gap 13 (12-20); Aspartate Amino Transferase 26 U/L (5-37); Bilirubin Total 0.7 mg/dL (0.0-1.0); Blood Urea Nitrogen 11 mg/dL (9-16); Carbon Dioxide 26 mmol/L (22-29); Chloride 104 mmol/L (96-108); Creatinine Clr Calc Pharmacy 205.5; Estimated Glomerular Filt Rate > 60; Glucose Random 93 mg/dL (60-115); Potassium 4.1 mmol/L (3.3-5.1); Sodium 139 mmol/L (135-145); Total Protein 7.3 g/dL (6.5-8.0)
[2022-05-23 19:57] VITALS: BP 122/62; PULSE 90; RESP 18; TEMP 36.7; O2SAT 99
== END 2022-05-23 23:30 | disposition left against medical advice (07) ==
PROVIDERS: Emergency Provider Emergency Medicine
DX: R50.9 Fever, unspecified (principal); M79.10 Myalgia, unspecified site; Z20.822 Contact with and (suspected) exposure to COVID-19; Z79.899 Other long term (current) drug therapy
CPT/HCPCS: 36415; 80053; 85025; 87635; 99282; 99283

== ENCOUNTER 2022-06-20 15:07 | Emergency (ER) | payer MEDICAID, SELFPAY ==
[2022-06-20 17:34] VITALS: BP 125/77; PULSE 76; RESP 20; TEMP 36.4; O2SAT 99; BMI 38.7
== END 2022-06-20 21:27 | disposition left against medical advice (07) ==
PROVIDERS: Emergency Provider Emergency Medicine
DX: R51.9 Headache, unspecified (principal)
CPT/HCPCS: 99281

== ENCOUNTER 2022-09-24 13:06 | Emergency (ER) | payer MEDICAID, SELFPAY ==
[2022-09-24 13:12] VITALS: BP 150/74; PULSE 91; RESP 18; TEMP 36.8; O2SAT 98; BMI 41.1
--- NOTE | 2022-09-24 15:07 | ED_ITS ---
HPI - Wound/Laceration General Chief Complaint: Wound/Laceration Stated Complaint: slammed finger in door Time Seen by Provider: 09/24/22 13:44 Source: patient Mode of arrival: ambulatory History of Present Illness HPI narrative: 22-year-old male with a past medical history of obesity presenting to the ED complaining of laceration to right thumb and pain to 1st and 2nd digit s/p hand being slammed shut and metal door at 03:00AM. Reports mild paresthesias. Denies injury to other area. Tetanus up-to-date. Reports pain with ROM. Denies weakness, numbness Onset (ago): hour(s) Related Data Previous Rx's Medication Instructions Recorded amoxicillin 500 mg tablet 500 mg PO Q12H #20 tabs 08/03/20 ondansetron HCl 4 mg tablet 4 mg PO Q8H PRN nausea and 08/03/20 (Zofran) vomiting #14 tabs azithromycin 500 mg tablet 500 mg PO DAILY 6 days #6 tabs 02/09/21 amoxicillin 875 mg-potassium 1 tab PO Q12H 10 days #20 tabs 05/15/21 clavulanate 125 mg tablet (Augmentin) ibuprofen 800 mg tablet 800 mg PO Q8H PRN pain #30 tabs 05/15/21 amoxicillin 875 mg-potassium 1 tab PO BID 10 days #20 tabs 05/16/21 clavulanate 125 mg tablet (Augmentin) oxycodone-acetaminophen 5 mg-325 1 tab PO Q6H PRN pain #10 tabs 05/17/21 mg tablet doxycycline hyclate 100 mg tablet 100 mg PO Q12H 7 days #14 tabs 06/08/21 oxycodone 5 mg tablet 5 mg PO Q4H PRN pain #10 tabs 06/08/21 amoxicillin 875 mg-potassium 1 tab PO BID 10 days #20 tabs 11/01/21 clavulanate 125 mg tablet (Augmentin) bacitracin 500 unit/gram topical 1 appl topical BID #30 grams 09/24/22 ointment Allergies Allergy/AdvReac Type Severity Reaction Status Date / Time No Known Allergies Allergy Verified 05/23/22 18:38 [No Known Allergies*] Review of Systems Review of Systems: Constitutional: No Fever, No Chills ENT/Mouth: No Ear Pain, No Nasal Congestion, No sore throat, No Rhinorrhea, No Swallowing Difficulty Cardiovascular: No Chest Pain, No SOB Respiratory: No Cough, No Sputum, No Wheezing Gastrointestinal: No Nausea, No Vomiting, No Diarrhea, No Constipation, No Abdominal pain Genitourinary: No Dysuria, No Urinary Frequency, No Hematuria, No Flank Pain Musculoskeletal: + joint pain, No Myalgias, No Joint Swelling Skin: + Skin Lesions, No rash Neuro: No Weakness, No Numbness, + Paresthesias+ Yes all other systems are reviewed and are negative Constitutional: Constitutional: Reports as per [facility] Past Medical History Attestation statement: The following information was validated with the patient. Medical History Epistaxis, recurrent Obesity (BMI 35.0-39.9 without comorbidity) Surgical History Hx of appendectomy Social History Social History Alcohol intake: never Patient Tobacco Use Status: Never used Tobacco Advance Directives: No Current occupational status: previously employed Current occupation: rt handed Physical Exam Vital Signs: Vital Signs: Last Vital Signs Temp 98.3 F 09/24/22 13:12 Pulse 91 09/24/22 13:12 Resp 18 09/24/22 13:12 BP 150/74 H 09/24/22 13:12 Pulse Ox 98 09/24/22 13:12 O2 Del Method 09/24/22 13:12 BMI result Body Mass Index 41.1 Const: General: cooperative, healthy appearing and no acute distress Orientation/consciousness: patient oriented x3 Limitations: no limitations HEENT: Head: Yes normal to inspection and Yes atraumatic Ears: hearing grossly normal bilaterally General nose exam: Normal external nose present Face and sinus: Yes normal facial exam Eyes: General: appearance normal, both eyes and all related structures EOM: EOMs intact bilaterally Neck: Neck: Yes normal visual inspection and Yes no meningeal signs Resp: Effort & Inspection: normal respiratory effort and no respiratory distress Cardio: Rhythm: regular rhythm Heart sounds: S1 normal heart sound present and S2 normal heart sound present Peripheral pulses: radial pulses present and ulnar radial pulses present Skin: Rashes: no rashes Neuro: General: patient oriented x3, tone normal and no meningeal signs Gait exam (Neuro): Normal gait present Extrem: Other: +2 cm laceration to R 1st digit volar aspect of PIP. FROM intact, NV intact. Finger to thumb opposition intact. Sensation intact to light touch. Mild swelling to 2nd digit. Mildly tender to palpation. No snuffbox tenderness Course Course Course Narrative: XR hand RT min 3V FINDINGS/IMPRESSION: ? A slightly fragmented, triangular density projects over the mid to proximal first distal phalanx. Cannot entirely exclude radiopaque foreign body. Recommend clinical correlation. ? No acute fracture is identified. ? The fifth DIP joints is held in flexion on all views, unchanged. ? A well-corticated ossific density at the radial aspect of the distal end of the fifth metacarpal bone appears unchanged over more than one year. ? The joint spaces appear maintained. >> no appreciable foreign body. Wound extensively irrigated. Likely seeing laceration Results discussed with patient including worrisome signs and symptoms and strict return precautions, and when to return to the emergency department. They verbalized understanding and feel safe for discharge at this time. Medications Administered Discontinued Medications Generic Name Dose Route Start Last Admin Trade Name Freq PRN Reason Stop Dose Admin Bacitracin 1 appl 09/24/22 15:51 09/24/22 16:48 Bacitracin Oint 14 Gm Tube TOPICAL 09/24/22 15:52 1 appl ONCE ONE Administration Protocol Lidocaine HCl 2 ml 09/24/22 15:26 09/24/22 15:29 Lidocaine Hcl 1 % Mpf 2 Ml Vial INFILTRATI 09/24/22 15:27 2 ml ONCE ONE Administration Lidocaine HCl 2 ml 09/24/22 15:26 09/24/22 15:29 Lidocaine Hcl 1 % Mpf 2 Ml Vial INFILTRATI 09/24/22 15:27 2 ml ONCE ONE Administration Medical Decision Making Medical Decision Making MDM Narrative: 22-year-old male with a past medical history of obesity presenting to the ED complaining of laceration to right thumb and pain to 1st and 2nd digit s/p hand being slammed shut and metal door at 03:00AM. On exam vital signs stable, NAD, nontoxic appearing, physical exam as above. Concern for underlying fracture. Low suspicion for tendon/ligamental rupture. No evidence of cellulitis Plan: X-rays, repair laceration Differential Diagnosis Differential Diagnoses: The differential diagnosis associated with the presentation includes Procedures Laceration Laceration 1: Site: hand Side (If applicable): right Size (cm): 2 Description: linear Depth: simple, single layer Local Anesthetic: lidocaine 1% Amount of anesthesia used (mL): 4 Pre-repair: wound explored and irrigated extensively Skin layer closed with: nylon Size (cm): 4-0 Number of sutures: 7 Technique: simple, interrupted Discharge Plan Discharge Clinical Impression: Laceration Patient Disposition: Home, Self-Care Instructions: Laceration (ED) Additional Instructions: Your wounds were repaired today in the emergency department. Keep dry and clean. You need to return to any emergency department, urgent care, or your PCPs office in 7-10 days for suture removal Apply bacitracin and or Neosporin daily Once sutures are removed apply anti scar cream like Mederma If area begins look infected, is red, there is drainage, streaking, or you have fever please return to the emergency department Prescriptions: New bacitracin 500 unit/gram ointment 1 appl topical BID Qty: 30 0RF No Action amoxicillin 500 mg tablet 500 mg PO Q12H Qty: 20 0RF ondansetron HCl [Zofran] 4 mg tablet 4 mg PO Q8H PRN (Reason: nausea and vomiting) Qty: 14 0RF azithromycin 500 mg tablet 500 mg PO DAILY 6 Days Qty: 6 0RF amoxicillin-pot clavulanate [Augmentin] 875-125 mg tablet 1 tab PO Q12H 10 Days Qty: 20 0RF ibuprofen 800 mg tablet 800 mg PO Q8H PRN (Reason: pain) Qty: 30 0RF oxycodone-acetaminophen 5-325 mg tablet 1 tab PO Q6H PRN (Reason: pain) Qty: 10 0RF doxycycline hyclate 100 mg tablet 100 mg PO Q12H 7 Days Qty: 14 0RF oxycodone 5 mg tablet 5 mg PO Q4H PRN (Reason: pain) Qty: 10 0RF Rx Instructions: Patient may request partial fill amoxicillin-pot clavulanate [Augmentin] 875-125 mg tablet 1 tab PO BID 10 Days Qty: 20 0RF amoxicillin-pot clavulanate [Augmentin] 875-125 mg tablet 1 tab PO BID 10 Days Qty: 20 0RF Referrals: Physician,None [Primary Care Provider] - 1 week (7-10 days for suture removal) Adrienne Waite MD [Physician] - 5 days Stand Alone Forms: Work/School Release Interventions: ED Discharge Assessment Last Done: 09/24/22 16:51 Discharge Date/Time: 09/24/22 16:51
--- NOTE | 2022-09-24 16:41 | PC.NURSE ---
called pharmacy x2 for missing med
== END 2022-09-24 16:51 | disposition home or self-care (01) ==
PROVIDERS: Emergency Provider Student in an Organized Health Care Education/Training Program
DX: S61.411A Laceration without foreign body of right hand, initial encounter (principal); Y29.XXXA Contact with blunt object, undetermined intent, initial encounter; Y93.9 Activity, unspecified; Y92.9 Unspecified place or not applicable; Y99.9 Unspecified external cause status
CPT/HCPCS: 12001; 73130; 99282; 99284

== ENCOUNTER 2022-10-10 17:20 | Outpatient (REF) | payer MEDICAID, SELFPAY | END 2022-10-10 17:21 | disposition home or self-care (01) | LOC: HO.HOSX 17:20 | PROVIDERS: Visit Provider Physician Assistant | DX: Z13.89 Encounter for screening for other disorder (principal) ==

== ENCOUNTER 2022-11-07 17:36 | Emergency (ER) | payer MEDICAID, SELFPAY ==
--- NOTE | ~2022-11-07 | US_ITS ---
EXAMINATION: US VENOUS ULTRASOUND WITH DOPPLER LOWER EXTREMITY, LEFT CLINICAL INFORMATION: Lower extremity pain and swelling and calf tenderness COMPARISON: None TECHNIQUE: Ultrasound of the deep veins is performed from the hip to the calf with compression sonography and color and pulse Doppler assessment. Spectral analysis with color-flow imaging is performed. FINDINGS: There is normal venous compression and respiratory variation and augmented flow. The visualized common femoral vein, superficial femoral vein, profunda femoral vein, popliteal vein, and the trifurcation region shows no evidence of deep venous thrombosis. Visualized segments of the posterior tibial veins appear patent. Peroneal veins not visualized. Small anechoic Ewing's cyst measuring approximately 1.6 x 0.7 x 2.3 cm in size. Prominent morphologically normal appearing left inguinal lymph node noted. If the patient's symptoms persist, followup ultrasound in 5 days 7 days might be of value to exclude proximal propagation from a non-visualized calf vein. US/US venous duplex LE IMPRESSION: No DVT demonstrated in the left lower extremity.
--- NOTE | ~2022-11-07 | XR_ITS ---
EXAMINATION: XR KNEE, LEFT CLINICAL INFORMATION: Left lateral knee pain with trauma and swelling COMPARISON: Left knee 10/07/2019 TECHNIQUE: Four views of the left knee. FINDINGS: There is a question of a fracture of the lateral tibial plateau (see ruth image). This could be related to an avulsion injury from the medial and collateral ligament injury. Given the trauma and the patient's acute pain, MRI is recommended for further evaluation for ligamentous evaluation. Bones and soft tissues are otherwise unremarkable. Small exostosis noted at the proximal fibular metaphysis. Small joint effusion may be present. Crescentic calcification adjacent to lateral tibial condyle new compared with the 10/07/2019 study may be secondary to the lateral collateral ligament old injury. Joint spaces are well maintained. No abnormal soft tissue calcification. XR/XR knee LT 4V IMPRESSION: 1. Question of a fracture of the lateral tibial plateau. MRI is recommended for further evaluation for ligamentous injury. 2. Small joint effusion. 3. Crescentic calcification adjacent to lateral tibial condyle new since 2019 may be due to an old lateral collateral ligament injury.
--- NOTE | ~2022-11-07 | CT_ITS ---
EXAMINATION: CT LOWER LEG WITHOUT CONTRAST, LEFT CLINICAL INFORMATION: Left lower extremity pain, calf pain. Question compartment syndrome. COMPARISON: Left knee radiographs done earlier the same day. TECHNIQUE: Contiguous axial CT images of the left lower leg were obtained without contrast. Multiplanar reformats were provided and reviewed. This CT examination was performed using dose optimization techniques as appropriate, variously including the following: *Automated exposure control *Adjustment of mA and/or kV according to patient size (this includes techniques or standardized protocols for targeted exams where dose is matched to indication/reason for exam; i.e. extremities or head) *Use of iterative reconstruction technique. DOSE: 358 mGy-cm. FINDINGS: Minimally depressed fracture at the anterior aspect of the medial tibial plateau measuring approximately 1.5 x 1.3 cm (AP by ML) with cortical depression/step off measuring up to 0.2 cm along the medial tibial plateau articular surface. Possible minimal cortical depression at the anterior aspect of the medial femoral condyle which could indicate a minimal impaction fracture. No additional acute fracture or dislocation. Corticated ossification adjacent to the medial femoral condyle which could represent a remote avulsion injury associated with the proximal medial collateral ligament. No significant joint space narrowing or marginal osteophytes. No concerning lytic or blastic osseous lesion. No talar osteochondral lesion. Small left knee joint effusion. Mild soft tissue edema extending distally through the lower leg. No large fluid collection or hematoma formation. The visualized muscles and tendons are grossly intact however, evaluation is limited on CT examination. CT/CT lower leg LT wo IV con IMPRESSION: 1. Minimally depressed fracture at the anterior aspect of the medial tibial plateau measuring up to 1.5 x 1.3 cm with cortical depression/step off measuring up to 0.2 cm along the articular surface. Possible minimal cortical depression at the anterior aspect of the medial femoral condyle which could indicate a minimal impaction fracture. 2. Small left knee joint effusion. Mild soft tissue edema extending distally through the lower leg. No large fluid collection or hematoma formation. 3. Corticated ossification adjacent to the medial femoral condyle which could represent a remote avulsion injury associated with the proximal medial collateral ligament.
[2022-11-07 17:54] VITALS: BP 113/89; PULSE 99; RESP 20; TEMP 36.6; O2SAT 100; BMI 31.2
--- NOTE | 2022-11-07 17:55 | ED_ITS ---
HPI - Extremity Injury (Lower) General Chief Complaint: Extremity Problem <Katja Mata CNP - Last Filed: 11/07/22 18:01> Stated Complaint: L leg swelling <Katja Mata CNP - Last Filed: 11/07/22 18:01> Time Seen by Provider: 11/07/22 18:32 <Katja Mata CNP - Last Filed: 11/07/22 18:01> Source: patient <SENIA Mackenzie - Last Filed: 11/07/22 20:23> Mode of arrival: ambulatory <SENIA Mackenzie - Last Filed: 11/07/22 20:23> Limitations: no limitations <SENIA Mackenzie Last Filed: 11/07/22 20:23> History of Present Illness HPI Narrative: This is a 22-year-old male history of recurrent epistaxis, obesity presenting to the emergency department with left knee and calf pain status post fall 5 days ago, patient reports he was running, knee hyperextended, he fell forward landing onto his left knee, since then has been having pain and swelling to both left knee and left lower extremity from the knee down to the foot. Patient tells me swelling has been significantly worsening over the past few days particularly to his left calf tells me it feels tense. Tells me he has a constant discomfort to his left calf area. Denies any history of hypercoagulable disorders, DVT, PE, not on hormone replacement therapy, no history of malignancy, no long travel, nonsmoker. Patient reports that pain is worse with weight-bearing activities, range of motion better at rest. Patient has been using a family member's cane to aid in ambulation and has been ambulatory since however extreamly painful 07/10. Patient denies chest pain, shortness of breath, nausea, vomiting, abdominal pain, headache, vision changes, dizziness, weakness. <SENIA Mackenzie Last Filed: 11/07/22 20:23> Related Data Home Medications: Previous Rx's Medication Instructions Recorded amoxicillin 500 mg tablet 500 mg PO Q12H #20 tabs 08/03/20 ondansetron HCl 4 mg tablet 4 mg PO Q8H PRN nausea and 08/03/20 (Zofran) vomiting #14 tabs azithromycin 500 mg tablet 500 mg PO DAILY 6 days #6 tabs 02/09/21 amoxicillin 875 mg-potassium 1 tab PO Q12H 10 days #20 tabs 05/15/21 clavulanate 125 mg tablet (Augmentin) ibuprofen 800 mg tablet 800 mg PO Q8H PRN pain #30 tabs 05/15/21 amoxicillin 875 mg-potassium 1 tab PO BID 10 days #20 tabs 05/16/21 clavulanate 125 mg tablet (Augmentin) oxycodone-acetaminophen 5 mg-325 1 tab PO Q6H PRN pain #10 tabs 05/17/21 mg tablet doxycycline hyclate 100 mg tablet 100 mg PO Q12H 7 days #14 tabs 06/08/21 oxycodone 5 mg tablet 5 mg PO Q4H PRN pain #10 tabs 06/08/21 amoxicillin 875 mg-potassium 1 tab PO BID 10 days #20 tabs 11/01/21 clavulanate 125 mg tablet (Augmentin) bacitracin 500 unit/gram topical 1 appl topical BID #30 grams 09/24/22 ointment <Katja Mata CNP - Last Filed: 11/07/22 18:01> Allergies/Adverse Reactions: Allergies Allergy/AdvReac Type Severity Reaction Status Date / Time No Known Allergies Allergy Verified 05/23/22 18:38 [No Known Allergies*] <Katja Mata DIRECTOR PEDIATRIC - Last Filed: 11/07/22 18:01> Review of Systems Review of Systems: Constitutional : No Weight loss, No Fever, No Chills, No Fatigue, No Malaise ENT/Mouth : No sore throat, No Rhinorrhea Eyes: No Eye Pain, No Swelling, No Redness Cardiovascular : No Chest Pain, No SOB, No Dyspnea on Exertion, No Orthopnea, No Edema, No Palpitations Respiratory : No Cough, No Sputum, No Wheezing Gastrointestinal : No Nausea, No Vomiting, No Diarrhea, No Constipation, No abdominal Pain, No Hematochezia, No Melena Genitourinary : No Dysuria, No Urinary Frequency, No Hematuria, Musculoskeletal : + joint pain, No Myalgias, + Joint Swelling Skin : No Skin Lesions, No rash Neuro : No Weakness, No Numbness, No Dizziness, No Headache Psych : No Anxiety/Panic, No Depression All other systems reviewed and are negative <SENIA Mackenzie - Last Filed: 11/07/22 20:23> Yes all other systems are reviewed and are negative <SENIA Mackenzie - Last Filed: 11/07/22 20:23> [facility] Past Medical History Attestation statement: The following information was validated with the patient. <SENIA Mackenzie - Last Filed: 11/07/22 20:23> Source: old records reviewed and nursing notes reviewed <SENIA Mackenzie - Last Filed: 11/07/22 20:23> Medical History: Medical History Epistaxis, recurrent Obesity (BMI 35.0-39.9 without comorbidity) <Katja Mata CNP - Last Filed: 11/07/22 18:01> Surgical History: Surgical History Hx of appendectomy <Katja Mata CNP - Last Filed: 11/07/22 18:01> Social History Social History: Social History Alcohol intake: never Patient Tobacco Use Status: Never used Tobacco Advance Directives: No Advance Directives Information Provided: No Current occupational status: previously employed Current occupation: rt handed <Katja Mata CNP - Last Filed: 11/07/22 18:01> Physical Exam Vital Signs: Vital Signs: Last Vital Signs Temp 97.8 F 11/07/22 17:54 Pulse 99 11/07/22 17:54 Resp 20 11/07/22 17:54 BP 113/89 11/07/22 17:54 Pulse Ox 100 11/07/22 17:54 O2 Del Method 11/07/22 17:54 BMI result Body Mass Index 31.2 <Katja Mata CNP - Last Filed: 11/07/22 18:01> Vital Signs: Last Vital Signs Temp 97.8 F 11/07/22 17:54 Pulse 99 11/07/22 17:54 Resp 20 11/07/22 17:54 BP 113/89 11/07/22 17:54 Pulse Ox 100 11/07/22 17:54 O2 Del Method 11/07/22 17:54 BMI result Body Mass Index 31.2 Vital signs stable <SENIA Mackenzie - Last Filed: 11/07/22 20:23> Appearance: Alert.? Oriented X3.? No acute distress.? Head: Normocephalic, atraumatic, no step-offs or deformities Eyes: Pupils equal, round and reactive to light.? ENT: Pharynx normal.? Neck: Normal inspection.? Neck supple.? CVS: Normal heart rate and rhythm.? Pulses normal.? Respiratory: No respiratory distress.? Breath sounds normal.? Abdomen: Soft and nontender.? Skin: Skin warm and dry.? Normal skin color.? Normal skin turgor.? Extremities: 2+ nonpitting edema to left lower extremity from the knee down. Normal right lower extremity without edema. Positive calf tenderness to palpation to left calf/positive Antunez sign. Negative John sign/no calf tenderness to palpation to right calf. 5/5 strength to bilateral upper and lower extremities. Patient reports painful range of motion of left knee knee. Normal right knee. Pain with palpation to anterior and lateral left knee with small to moderate size effusion. Normal right knee without effusion. No overlying skin changes, erythema, warmth. 2+ dorsalis pedis, anterior tibialis and posterior tibialis pulses equal bilateral. No footdrop. Normal sensation to lower extremities. Compartments to left calf area tense. Back: No midline tenderness, no C-spine tenderness, full range of motion, no CVA tenderness bilaterally Neuro: Oriented X 3.? No motor deficit.? No sensory deficit. CN 2-12 intact . Patient ambulating with cane appears very uncomfortable. Reports significant pain with ambulation. <SENIA Mackenzie - Last Filed: 11/07/22 20:23> Course Course Course Narrative: This is an RME: Additional HPI, ROS, PE not included below will be deferred to primary provider. Patient is a 22-year-old male presents emergency department for evaluation of leg swelling. States running 5 days ago, states L leg slammed down and knee ?hyperextended, then fell landing onto the anterior knee. Now with swelling to legs from knee to foot. Pain worse with weight bearing to lateral knee. Denies hx DVT/PE, or PMHX. PE: TTP left lateral knee, left calf TTP, able to weight bear using a family members cane, 2+ DP/PT pulse Plan: US, XR <Katja Mata CNP - Last Filed: 11/07/22 18:01> Reevaluation(s) Reevaluation #1: X-ray of left knee showing question fracture of the lateral tibial plateau, recommends MRI. Small joint effusion also noted. Patient is still reporting severe pain. Oxycodone given for pain. There is concerns for com partment syndrome will discuss this case with my attending. <SENIA Mackenzie - Last Filed: 11/07/22 20:23> Time: 19:35 <SENIA Mackenzie - Last Filed: 11/07/22 20:23> Reevaluation #2: I evaluated this patient with my attending Dr. Vann who agrees concerns for compartment syndrome. <SENIA Mackenzie - Last Filed: 11/07/22 20:23> Time: 19:57 <SENIA Mackenzie - Last Filed: 11/07/22 20:23> Reevaluation #3: Patient accepted at [facility] ED trauma transfer to Dr. Hopper CT ordered if it does not delay transport CT will be done in this facility if not patient will go straight to [facility]. <SENIA Mackenzie - Last Filed: 11/07/22 20:23> Time: 20:11 <SENIA Mackenzie - Last Filed: 11/07/22 20:23> Medications Administered Discontinued Medications Generic Name Dose Route Start Last Admin Trade Name Freq PRN Reason Stop Dose Admin Oxycodone HCl 5 mg 11/07/22 19:55 11/07/22 20:02 Oxycodone Hcl Immed Release 5 Mg Tablet PO 11/07/22 19:56 5 mg ONCE ONE Administration <Katja Mata CNP - Last Filed: 11/07/22 18:01> Medications Administered Discontinued Medications Generic Name Dose Route Start Last Admin Trade Name Freq PRN Reason Stop Dose Admin Oxycodone HCl 5 mg 11/07/22 19:55 11/07/22 20:02 Oxycodone Hcl Immed Release 5 Mg Tablet PO 11/07/22 19:56 5 mg ONCE ONE Administration <SENIA Mackenzie - Last Filed: 11/07/22 20:23> Medical Decision Making Medical Decision Making [facility] Narrative: 1829 22-year-old male presents with pain and swelling to left lower extremity status post fall 5 days ago. Reports knee and calf pain predominantly. Physical exam significant for 2+ nonpitting edema to left lower extremity from the knee down. Normal right lower extremity without edema. Positive calf tenderness to palpation to left calf/positive Antunez sign. Negative John sign/no calf tenderness to palpation to right calf. 5/5 strength to bilateral upper and lower extremities. Patient reports painful range of motion of left knee knee. Normal right knee. Pain with palpation to anterior and lateral left knee with small to moderate size effusion. Normal right knee without effusion. No overlying skin changes, erythema, warmth. 2+ dorsalis pedis, anterior tibialis and posterior tibialis pulses equal bilateral. No footdrop. Normal sensation to lower extremities. Tense comparments to LLE calf Concerns for possible contusion, fracture, sprain/strain, comparment syndrome, possible DVT. Will rule these out. Plan at this time basic labs, coags, ultrasound, x-ray. <SENIA Mackenzie Last Filed: 11/07/22 20:23> Differential Diagnosis Differential Diagnoses: The differential diagnosis associated with the presentation includes <SENIA Mackenzie Last Filed: 11/07/22 20:23> Concerns for possible contusion, fracture, sprain/strain, comparment syndrome, possible DVT. Will rule these out. <SENIA Mackenzie Last Filed: 11/07/22 20:23> Admission/Observation Consideration of admission/observation: Escalation of care including admission/observation considered <SENIA Mackenzie Last Filed: 11/07/22 20:23> Lab Data MDM Lab Attestation statement: I reviewed the patient's lab results. <SENIA Mackenzie Last Filed: 11/07/22 20:23> Result Diagrams: 11/07/22 19:14 11/07/22 19:14 <Katja Mata, DIRECTOR PEDIATRIC - Last Filed: 11/07/22 18:01> Labs: Lab Results 11/07/22 11/07/22 11/07/22 Range/Units 19:14 19:14 19:14 WBC 12.0 H (4.8-10.8) X10*3/uL RBC 4.71 (4.60-5.80) X10*6/uL Hgb 13.9 L (14.0-18.0) g/dl Hct 40.6 L (42.0-52.0) % MCV 86.2 (80.0-98.0) fL MCH 29.5 (27.0-33.0) pg MCHC 34.2 (31.0-36.0) g/dl RDW 14.1 (11.0-16.0) % Plt Count 309 D (160-400) X10*3/uL MPV 10.1 (9.4-12.4) fL Immature Gran % (Auto) 0.3 (0.0-0.4) % Neut % (Auto) 66.7 (45-73) % Lymph % (Auto) 26.2 (20-40) % Sebastian % (Auto) 5.5 (2-11) % Eos % (Auto) 1.0 (0-4) % Baso % (Auto) 0.3 (0-2) % Lymph # (Auto) 3.1 (1.2-4.9) X10*3/uL Sebastian # (Auto) 0.7 (0.1-1.2) X10*3/uL Eos # (Auto) 0.1 (0.0-0.4) X10*3/uL Baso # (Auto) 0.0 (0.0-0.2) X10*3/uL Abs Immat Gran (auto) 0.04 H (0.00-0.03) X10*3/uL Absolute Neuts (auto) 8.0 (2.0-8.3) x10*3/uL Absolute Nucleated RBC 0.000 (0.0-0.012) X10*3/uL Nucleated RBC % (auto) 0.0 (0.0-0.2) /100WBC PT 12.1 (10.0-13.1) SEC INR 1.1 (0.9-1.1) Sodium 140 (135-145) mmol/L Potassium 3.7 (3.3-5.1) mmol/L Chloride 104 (96-108) mmol/L Carbon Dioxide 24 (22-29) mmol/L Anion Gap 16 (12-20) BUN 9 (9-16) mg/dL Creatinine 0.77 (0.5-1.4) mg/dL Estim Creat Clear Calc 206.1 Estimated GFR > 60 Random Glucose 90 (60-115) mg/dL Calcium 8.9 (8.4-10.2) mg/dL Total Bilirubin 0.5 (0.0-1.0) mg/dL AST 19 (5-37) U/L ALT 18 (0-40) U/L Alkaline Phosphatase 98 (39-117) U/L Total Protein 6.9 (6.5-8.0) g/dL Albumin 4.0 (3.5-5.0) g/dL <Katja Mata, DIRECTOR PEDIATRIC - Last Filed: 11/07/22 18:01> Lab Results 11/07/22 11/07/22 11/07/22 Range/Units 19:14 19:14 19:14 WBC 12.0 H (4.8-10.8) X10*3/uL RBC 4.71 (4.60-5.80) X10*6/uL Hgb 13.9 L (14.0-18.0) g/dl Hct 40.6 L (42.0-52.0) % MCV 86.2 (80.0-98.0) fL MCH 29.5 (27.0-33.0) pg MCHC 34.2 (31.0-36.0) g/dl RDW 14.1 (11.0-16.0) % Plt Count 309 D (160-400) X10*3/uL MPV 10.1 (9.4-12.4) fL Immature Gran % (Auto) 0.3 (0.0-0.4) % Neut % (Auto) 66.7 (45-73) % Lymph % (Auto) 26.2 (20-40) % Sebastian % (Auto) 5.5 (2-11) % Eos % (Auto) 1.0 (0-4) % Baso % (Auto) 0.3 (0-2) % Lymph # (Auto) 3.1 (1.2-4.9) X10*3/uL Sebastian # (Auto) 0.7 (0.1-1.2) X10*3/uL Eos # (Auto) 0.1 (0.0-0.4) X10*3/uL Baso # (Auto) 0.0 (0.0-0.2) X10*3/uL Abs Immat Gran (auto) 0.04 H (0.00-0.03) X10*3/uL Absolute Neuts (auto) 8.0 (2.0-8.3) x10*3/uL Absolute Nucleated RBC 0.000 (0.0-0.012) X10*3/uL Nucleated RBC % (auto) 0.0 (0.0-0.2) /100WBC PT 12.1 (10.0-13.1) SEC INR 1.1 (0.9-1.1) Sodium 140 (135-145) mmol/L Potassium 3.7 (3.3-5.1) mmol/L Chloride 104 (96-108) mmol/L Carbon Dioxide 24 (22-29) mmol/L Anion Gap 16 (12-20) BUN 9 (9-16) mg/dL Creatinine 0.77 (0.5-1.4) mg/dL Estim Creat Clear Calc 206.1 Estimated GFR > 60 Random Glucose 90 (60-115) mg/dL Calcium 8.9 (8.4-10.2) mg/dL Total Bilirubin 0.5 (0.0-1.0) mg/dL AST 19 (5-37) U/L ALT 18 (0-40) U/L Alkaline Phosphatase 98 (39-117) U/L Total Protein 6.9 (6.5-8.0) g/dL Albumin 4.0 (3.5-5.0) g/dL <SENIA Mackenzie - Last Filed: 11/07/22 20:23> Critical Care Time Critical Care Time Critical Care Time: No <SENIA Mackenzie - Last Filed: 11/07/22 20:23> Discharge Plan Discharge Clinical Impression: Pain of left calf, Closed fracture of tibial plateau <Katja Mata CNP - Last Filed: 11/07/22 18:01> Patient Disposition: [facility] <Katja Mata CNP - Last Filed: 11/07/22 18:01> Transfer Details: [facility] ED trauma transfer to Dr. Hopper ? Compartment syndrome <Katja Mata CNP - Last Filed: 11/07/22 18:01> [facility] ED trauma transfer to Dr. Hopper ? Compartment syndrome <SENIA Mackenzie - Last Filed: 11/07/22 20:23> Prescriptions: No Action amoxicillin 500 mg tablet 500 mg PO Q12H Qty: 20 0RF ondansetron HCl [Zofran] 4 mg tablet 4 mg PO Q8H PRN (Reason: nausea and vomiting) Qty: 14 0RF azithromycin 500 mg tablet 500 mg PO DAILY 6 Days Qty: 6 0RF amoxicillin-pot clavulanate [Augmentin] 875-125 mg tablet 1 tab PO Q12H 10 Days Qty: 20 0RF ibuprofen 800 mg tablet 800 mg PO Q8H PRN (Reason: pain) Qty: 30 0RF oxycodone-acetaminophen 5-325 mg tablet 1 tab PO Q6H PRN (Reason: pain) Qty: 10 0RF doxycycline hyclate 100 mg tablet 100 mg PO Q12H 7 Days Qty: 14 0RF oxycodone 5 mg tablet 5 mg PO Q4H PRN (Reason: pain) Qty: 10 0RF Rx Instructions: Patient may request partial fill amoxicillin-pot clavulanate [Augmentin] 875-125 mg tablet 1 tab PO BID 10 Days Qty: 20 0RF bacitracin 500 unit/gram ointment 1 appl topical BID Qty: 30 0RF amoxicillin-pot clavulanate [Augmentin] 875-125 mg tablet 1 tab PO BID 10 Days Qty: 20 0RF <Katja Mata CNP - Last Filed: 11/07/22 18:01>
[2022-11-07 19:19] LABS: MANUAL DIFF FLAG NO
[2022-11-07 19:22] LABS: Basophils Percent Auto 0.3 % (0-2); Eosinophils Absolute Auto 0.1 X10*3/uL (0.0-0.4); Hematocrit 40.6 % (42.0-52.0); Hemoglobin 13.9 g/dl (14.0-18.0); Imm Gran Abs Auto 0.04 X10*3/uL (0.00-0.03); Imm Gran Pct Auto 0.3 % (0.0-0.4); Lymphocytes Absolute Auto 3.1 X10*3/uL (1.2-4.9); Lymphocytes Percent Auto 26.2 % (20-40); Mean Corpuscular HGB Conc 34.2 g/dl (31.0-36.0); Mean Corpuscular Hemoglobin 29.5 pg (27.0-33.0); Mean Corpuscular Volume 86.2 fL (80.0-98.0); Mean Platelet Volume 10.1 fL (9.4-12.4); Monocytes Absolute Auto 0.7 X10*3/uL (0.1-1.2); Monocytes Percent Auto 5.5 % (2-11); Neutrophils Percent Auto 66.7 % (45-73); Platelet Count 309 X10*3/uL (160-400); Red Blood Count 4.71 X10*6/uL (4.60-5.80); Red Cell Distribution Width 14.1 % (11.0-16.0)
[2022-11-07 19:24] LABS: INTERNATIONAL NORM RATIO 1.1 (0.9-1.1); Prothrombin Time 12.1 SEC (10.0-13.1)
[2022-11-07 19:32] LABS: Alanine Aminotransferase 18 U/L (0-40); Alkaline Phosphatase 98 U/L (39-117); Anion Gap 16 (12-20); Aspartate Amino Transferase 19 U/L (5-37); Bilirubin Total 0.5 mg/dL (0.0-1.0); Blood Urea Nitrogen 9 mg/dL (9-16); Calcium 8.9 mg/dL (8.4-10.2); Carbon Dioxide 24 mmol/L (22-29); Chloride 104 mmol/L (96-108); Creatinine Clr Calc Pharmacy 206.1; Estimated Glomerular Filt Rate > 60; Glucose Random 90 mg/dL (60-115); Potassium 3.7 mmol/L (3.3-5.1); Sodium 140 mmol/L (135-145); Total Protein 6.9 g/dL (6.5-8.0)
--- NOTE | 2022-11-07 19:57 | MHC.EDTECH ---
[facility] Transfer Line called at 1955 per Desiree Chew. Spoke with Lily garcia patient demographics awaiting a call back at this time.
[2022-11-07] MEDS: oxyCODONE HCl Immed Release 5 MG TABLET PO (20:02)
--- NOTE | 2022-11-07 20:22 | PC.NURSE ---
left knee pain w/ left lower extremity swelling post slip and fall. pedal pulse palpable. PA concerned for compartment syndrome- patient aware of plan of care for transfer to [facility]. patient medicated as ordered for pain and IV established. pt to CT at this time.
--- NOTE | 2022-11-07 20:22 | MHC.EDTECH ---
At 2017 [facility] accepted patient to the ER, accepted patient.Mae called at 2018 for a stat ALS transfer per Desiree Sosa within 15mins
[2022-11-07 20:23] LABS: COVID-19 Test Negative (Negative); IDNOW Serial# BCCEAD1C
[2022-11-07 20:29] VITALS: BP 129/65; PULSE 90; RESP 18; TEMP 36.7; O2SAT 98
[2022-11-07] MEDS: HYDROmorphone HCl 0.5 MG/0.5 ML SYRINGE IVPUSH (20:33)
--- NOTE | 2022-11-07 20:58 | PC.NURSE ---
nurse to nurse called in to [facility] [place]-left extremity stabilized with 5X30 splint on posterior aspect followed by loosely wrapped kerlix and tape. 18G IV in place- pt transferred via [facility]
== END 2022-11-07 21:07 | disposition short-term general hospital (02) ==
PROVIDERS: Physician Assistant; Emergency Provider Student in an Organized Health Care Education/Training Program
DX: S82.142A Displaced bicondylar fracture of left tibia, initial encounter for closed fracture (principal); R60.0 Localized edema; M79.605 Pain in left leg; X58.XXXA Exposure to other specified factors, initial encounter; Y93.9 Activity, unspecified; Y92.9 Unspecified place or not applicable; Y99.9 Unspecified external cause status; Z79.899 Other long term (current) drug therapy
CPT/HCPCS: 36415; 73564; 73700; 80053; 85025; 85610; 87635; 93971; 96374; 99285; J1170

== ENCOUNTER 2022-11-29 21:36 | Emergency (ER) | payer MEDICAID, SELFPAY ==
[2022-11-29 22:14] VITALS: BP 115/65; PULSE 80; RESP 16; TEMP 36.3; O2SAT 97; BMI 34.8
== END 2022-11-30 00:43 | disposition left against medical advice (07) ==
PROVIDERS: Emergency Provider Emergency Medicine
DX: M79.605 Pain in left leg (principal)
CPT/HCPCS: 99281

== ENCOUNTER 2022-12-05 23:35 | Emergency (ER) | payer MEDICAID, SELFPAY ==
--- NOTE | ~2022-12-05 | XR_ITS ---
EXAMINATION: XR FEMUR LT 2V XR KNEE LT 4V CLINICAL INFORMATION: Pain and swelling COMPARISON: CT dated 11/07/2022 TECHNIQUE: 2 views of left femur 4 views of the left knee FINDINGS: No acute fracture or dislocation. Previously seen mildly depressed fracture along the anterolateral medial tibial plateau redemonstrated, without appreciable change from prior. Tiny impaction deformity along the anteromedial femoral condyle also unchanged. Left femur intact. Imaged left hip joint unremarkable. Joint spaces and articular surfaces of the knee are maintained. No significant joint effusion. There is crescentic calcification / ossification along the medial femoral condyle, favored to relate to previous MCL injury. Tiny osteochondroma present along the medial proximal fibular metaphysis. XR/XR knee LT 4V IMPRESSION: * No acute fracture or dislocation. * Stable mildly impacted fracture of the anterolateral aspect of the medial tibial plateau and corresponding mild subchondral impaction fracture femoral condyle. * No significant knee joint effusion. * Marilee-Stieda lesion.
--- NOTE | ~2022-12-05 | XR_ITS ---
EXAMINATION: XR FEMUR LT 2V XR KNEE LT 4V CLINICAL INFORMATION: Pain and swelling COMPARISON: CT dated 11/07/2022 TECHNIQUE: 2 views of left femur 4 views of the left knee FINDINGS: No acute fracture or dislocation. Previously seen mildly depressed fracture along the anterolateral medial tibial plateau redemonstrated, without appreciable change from prior. Tiny impaction deformity along the anteromedial femoral condyle also unchanged. Left femur intact. Imaged left hip joint unremarkable. Joint spaces and articular surfaces of the knee are maintained. No significant joint effusion. There is crescentic calcification / ossification along the medial femoral condyle, favored to relate to previous MCL injury. Tiny osteochondroma present along the medial proximal fibular metaphysis. XR/XR femur LT 2V IMPRESSION: * No acute fracture or dislocation. * Stable mildly impacted fracture of the anterolateral aspect of the medial tibial plateau and corresponding mild subchondral impaction fracture femoral condyle. * No significant knee joint effusion. * Marilee-Stieda lesion.
[2022-12-05 23:37] VITALS: BP 124/68; PULSE 90; RESP 18; TEMP 36.8; O2SAT 97; BMI 35.2
--- NOTE | 2022-12-06 00:37 | PC.NURSE ---
Pt a&o, denies an sob or chest pain, pt had surgery need to follow-up with surgeon, missed appts, 05/10. left leg is swollen, warm and tender. CMS intact, pedal pulses intact. Will continue to monitor.
--- NOTE | 2022-12-06 01:55 | ED.EXTPRO ---
HPI - Extremity Problem General Chief complaint: Extremity Problem Stated complaint: left Leg Pain Time Seen by Provider: 12/06/22 01:34 Source: patient Mode of arrival: ambulatory Limitations: no limitations History of Present Illness HPI Narrative: Patient is status post fasciotomy surgery 4 weeks ago left leg did not follow-up with surgeon comes here for discomfort in the leg with suture still there also patient had tibial plateau fractures opposed to heal in conservative treatment patient not using crutches and walking complaining of pain Related Data Previous Rx's Medication Instructions Recorded amoxicillin 500 mg tablet 500 mg PO Q12H #20 tabs 08/03/20 ondansetron HCl 4 mg tablet 4 mg PO Q8H PRN nausea and 08/03/20 (Zofran) vomiting #14 tabs azithromycin 500 mg tablet 500 mg PO DAILY 6 days #6 tabs 02/09/21 amoxicillin 875 mg-potassium 1 tab PO Q12H 10 days #20 tabs 05/15/21 clavulanate 125 mg tablet (Augmentin) ibuprofen 800 mg tablet 800 mg PO Q8H PRN pain #30 tabs 05/15/21 amoxicillin 875 mg-potassium 1 tab PO BID 10 days #20 tabs 05/16/21 clavulanate 125 mg tablet (Augmentin) oxycodone-acetaminophen 5 mg-325 1 tab PO Q6H PRN pain #10 tabs 05/17/21 mg tablet doxycycline hyclate 100 mg tablet 100 mg PO Q12H 7 days #14 tabs 06/08/21 oxycodone 5 mg tablet 5 mg PO Q4H PRN pain #10 tabs 06/08/21 amoxicillin 875 mg-potassium 1 tab PO BID 10 days #20 tabs 11/01/21 clavulanate 125 mg tablet (Augmentin) bacitracin 500 unit/gram topical 1 appl topical BID #30 grams 09/24/22 ointment ibuprofen 600 mg tablet 600 mg PO Q6H PRN fever or pain 12/06/22 #30 tabs Allergies Allergy/AdvReac Type Severity Reaction Status Date / Time No Known Allergies Allergy Verified 11/29/22 22:13 [No Known Allergies*] Review of Systems Review of Systems: Yes all other systems are reviewed and are negative PMFSH Past Medical History Medical History Epistaxis, recurrent Obesity (BMI 35.0-39.9 without comorbidity) Surgical History Hx of appendectomy Social History Social History Alcohol intake: never Patient Tobacco Use Status: Never used Tobacco Smoked in Last 30 Days: No Use of substances other than those prescribed or required for medical reasons: No Advance Directives: No Advance Directives Information Provided: Yes Current occupational status: previously employed Current occupation: rt handed Physical Exam Vital Signs: Vital Signs: Last Vital Signs Temp 98.3 F 12/05/22 23:37 Pulse 72 12/06/22 02:39 Resp 16 12/06/22 02:39 BP 102/57 L 12/06/22 02:39 Pulse Ox 96 12/06/22 02:39 O2 Del Method 12/06/22 02:39 BMI result Body Mass Index 35.2 Appearance: Alert. Oriented X3. No acute distress. Neck: Normal inspection. Neck supple. CVS: Normal heart rate and rhythm. Pulses normal. Respiratory: No respiratory distress. Equal air entry bilateral, no mass palpable, no CVA tenderness Skin: Skin warm and dry. Normal skin color. Normal skin turgor. Extremities: No lower extremity edema. No calf tenderness sutures in place left leg no significant calf tenderness or swelling neurovascular intact Neuro: Oriented X 3. No motor deficit. Medical Decision Making Medical Decision Making MDM Narrative: Sutures removed from left leg from the previous surgery patient will be following up with Orthopedics advised to use crutches for ambulation Discharge Plan Discharge Clinical Impression: Encounter for removal of sutures Patient Disposition: Home, Self-Care Instructions: Stitches Removal (ED) Additional Instructions: Follow-up with orthopedics use crutches for ambulation Ibuprofen for pain Prescriptions: New ibuprofen 600 mg tablet 600 mg PO Q6H PRN (Reason: fever or pain) Qty: 30 0RF No Action amoxicillin 500 mg tablet 500 mg PO Q12H Qty: 20 0RF ondansetron HCl [Zofran] 4 mg tablet 4 mg PO Q8H PRN (Reason: nausea and vomiting) Qty: 14 0RF azithromycin 500 mg tablet 500 mg PO DAILY 6 Days Qty: 6 0RF amoxicillin-pot clavulanate [Augmentin] 875-125 mg tablet 1 tab PO Q12H 10 Days Qty: 20 0RF ibuprofen 800 mg tablet 800 mg PO Q8H PRN (Reason: pain) Qty: 30 0RF oxycodone-acetaminophen 5-325 mg tablet 1 tab PO Q6H PRN (Reason: pain) Qty: 10 0RF doxycycline hyclate 100 mg tablet 100 mg PO Q12H 7 Days Qty: 14 0RF oxycodone 5 mg tablet 5 mg PO Q4H PRN (Reason: pain) Qty: 10 0RF Rx Instructions: Patient may request partial fill amoxicillin-pot clavulanate [Augmentin] 875-125 mg tablet 1 tab PO BID 10 Days Qty: 20 0RF bacitracin 500 unit/gram ointment 1 appl topical BID Qty: 30 0RF amoxicillin-pot clavulanate [Augmentin] 875-125 mg tablet 1 tab PO BID 10 Days Qty: 20 0RF Stand Alone Forms: Work/School Release Interventions: ED Discharge Assessment Last Done: 12/06/22 03:40 Discharge Date/Time: 12/06/22 03:41
[2022-12-06 02:39] VITALS: BP 102/57; PULSE 72; RESP 16; O2SAT 96
--- NOTE | 2022-12-06 02:39 | PC.NURSE ---
pt is sleeping after going to xray, no sign of distress. Will continue to monitor.
== END 2022-12-06 03:41 | disposition home or self-care (01) ==
PROVIDERS: Emergency Provider Internal Medicine
DX: M79.605 Pain in left leg (principal); Z48.02 Encounter for removal of sutures; E66.9 Obesity, unspecified; Z68.35 Body mass index [BMI] 35.0-35.9, adult
CPT/HCPCS: 73552; 73564; 99283; 99284

== ENCOUNTER 2022-12-14 02:56 | Emergency (ER) | payer MEDICAID, SELFPAY ==
--- NOTE | 2022-12-14 | ECG_ITS ---
Test Reason : CHEST PAIN Blood Pressure : / mmHG Vent. Rate : 095 BPM Atrial Rate : 095 BPM P-R Int : 138 ms QRS Dur : 084 ms QT Int : 354 ms P-R-T Axes : 044 035 023 degrees QTc Int : 444 ms Normal sinus rhythm Normal ECG When compared with ECG of 21-NOV-2011 10:43, No significant changes seen Referred By: Generic ED Physician Electronically Signed By:Nilesh Guan
[2022-12-14 03:13] VITALS: BP 117/64; PULSE 88; RESP 20; TEMP 36.7; O2SAT 98; BMI 34.5
[2022-12-14 03:23] LABS: Hematocrit 40.3 % (42.0-52.0); Hemoglobin 13.9 g/dl (14.0-18.0); Mean Corpuscular HGB Conc 34.5 g/dl (31.0-36.0); Mean Corpuscular Hemoglobin 29.1 pg (27.0-33.0); Mean Corpuscular Volume 84.3 fL (80.0-98.0); Platelet Count 280 X10*3/uL (160-400); Red Blood Count 4.78 X10*6/uL (4.60-5.80); Red Cell Distribution Width 13.4 % (11.0-16.0); White Blood Count 13.2 X10*3/uL (4.8-10.8)
[2022-12-14 03:41] LABS: Alanine Aminotransferase 15 U/L (0-40); Albumin Level 4.2 g/dL (3.5-5.0); Alkaline Phosphatase 103 U/L (39-117); Anion Gap 13 (12-20); Aspartate Amino Transferase 14 U/L (5-37); Bilirubin Total 0.5 mg/dL (0.0-1.0); Blood Urea Nitrogen 9 mg/dL (9-16); Calcium 9.1 mg/dL (8.4-10.2); Carbon Dioxide 26 mmol/L (22-29); Chloride 105 mmol/L (96-108); Creatinine Clr Calc Pharmacy 216.4; Estimated Glomerular Filt Rate > 60; Glucose Random 110 mg/dL (60-115); Potassium 3.6 mmol/L (3.3-5.1); Sodium 140 mmol/L (135-145)
[2022-12-14 03:53] LABS: Troponin-I High Sensitivity < 3.5 ng/L (<3.5-35.0)
[2022-12-14 04:26] VITALS: BP 111/67; PULSE 81; RESP 22; TEMP 36.5; O2SAT 96
--- NOTE | 2022-12-14 04:43 | ED_ITS ---
HPI - Chest Pain General Chief Complaint: Chest Pain Stated Complaint: Chest Pain Time Seen by Provider: 12/14/22 04:43 Source: patient Mode of arrival: ambulatory Limitations: no limitations History of Present Illness HPI narrative: 22-year-old male who presents emergency department for evaluation of chest pain. The patient states he has been having intermittent chest pressure on off for 1 week. He points to his sternal area when asked to localize the pain. He states that the pain is intermittent and lasts seconds to hours. He states that this morning at 02:00 hours he developed chest pressure. He states that lasted approximately 2 hours and then resolved. He states that the pain makes at anxious and he does feel short of breath when he gets the pain. The pain does not change with breathing or with movement. He denies dyspnea on exertion. The patient had a left tibial fracture 5 weeks prior He states that his leg is still swollen Related Data Previous Rx's Medication Instructions Recorded amoxicillin 500 mg tablet 500 mg PO Q12H #20 tabs 08/03/20 ondansetron HCl 4 mg tablet 4 mg PO Q8H PRN nausea and 08/03/20 (Zofran) vomiting #14 tabs azithromycin 500 mg tablet 500 mg PO DAILY 6 days #6 tabs 02/09/21 amoxicillin 875 mg-potassium 1 tab PO Q12H 10 days #20 tabs 05/15/21 clavulanate 125 mg tablet (Augmentin) ibuprofen 800 mg tablet 800 mg PO Q8H PRN pain #30 tabs 05/15/21 amoxicillin 875 mg-potassium 1 tab PO BID 10 days #20 tabs 05/16/21 clavulanate 125 mg tablet (Augmentin) oxycodone-acetaminophen 5 mg-325 1 tab PO Q6H PRN pain #10 tabs 05/17/21 mg tablet doxycycline hyclate 100 mg tablet 100 mg PO Q12H 7 days #14 tabs 06/08/21 oxycodone 5 mg tablet 5 mg PO Q4H PRN pain #10 tabs 06/08/21 amoxicillin 875 mg-potassium 1 tab PO BID 10 days #20 tabs 11/01/21 clavulanate 125 mg tablet (Augmentin) bacitracin 500 unit/gram topical 1 appl topical BID #30 grams 09/24/22 ointment ibuprofen 600 mg tablet 600 mg PO Q6H PRN fever or pain 12/06/22 #30 tabs Allergies Allergy/AdvReac Type Severity Reaction Status Date / Time No Known Allergies Allergy Verified 11/29/22 22:13 [No Known Allergies*] FORMERLY [facility], [facility] Past Medical History Medical History Epistaxis, recurrent Obesity (BMI 35.0-39.9 without comorbidity) Surgical History Hx of appendectomy Social History Social History Alcohol intake: never Patient Tobacco Use Status: Never used Tobacco Advance Directives: No Current occupational status: previously employed Current occupation: rt handed Physical Exam Vital Signs: Vital Signs: Last Vital Signs Temp 98.0 F 12/14/22 07:37 Pulse 80 12/14/22 07:37 Resp 12 12/14/22 07:37 BP 119/70 12/14/22 07:37 Pulse Ox 99 12/14/22 07:37 O2 Del Method 12/14/22 07:37 BMI result Body Mass Index 34.5 Medical Decision Making Medical Decision Making MDM Narrative: 22-year-old male with no significant past medical history except for left tibial fracture 5 weeks prior who presents emergency department for evaluation of intermittent chest pain times 4-6 days, with an episode of chest pain this morning at 02:00 hours which lasted approximately 2 hours. Patient states that the chest pain is associated with shortness of breath and anxiety. Patient's vital signs were normal. Patient's physical examination was unremarkable except for swelling of his left lower extremity which is consistent with his tibial fracture pain. I did order laboratory evaluation to include CBC, CMP, troponin, D-dimer, PT/INR, PTT, EKG 0748: Laboratory interpretation: WBC elevated 13,200. High sensitive troponin I was below detectable limits, 3 hour repeat was also below detectable limits. D-dimer was normal at 189. Twelve EKG was unremarkable. At this time I believe that the patient's chest pain is most likely musculoskeletal I did discuss this with him. Patient was advised to take Tylenol and ibuprofen for his pain. Differential Diagnosis Differential diagnosis includes but is not limited to myocardial infarction, pulmonary embolism, chest wall pain, costochondritis, anxiety Lab Data [facility] Lab Attestation statement: I reviewed the patient's lab results. Please see [facility] for discussion 12/14/22 03:17 12/14/22 03:17 Labs: Lab Results 12/14/22 12/14/22 12/14/22 Range/Units 03:17 03:17 03:17 WBC 13.2 H (4.8-10.8) X10*3/uL RBC 4.78 (4.60-5.80) X10*6/uL Hgb 13.9 L (14.0-18.0) g/dl Hct 40.3 L (42.0-52.0) % MCV 84.3 (80.0-98.0) fL MCH 29.1 (27.0-33.0) pg MCHC 34.5 (31.0-36.0) g/dl RDW 13.4 (11.0-16.0) % Plt Count 280 (160-400) X10*3/uL MPV 10.0 (9.4-12.4) fL Absolute Nucleated RBC 0.000 (0.0-0.012) X10*3/uL Nucleated RBC % (auto) 0.0 (0.0-0.2) /100WBC PT (10.0-13.1) SEC INR (0.9-1.1) APTT (26.0-36.4) SEC D-Dimer High Sensitivty NG/ML Sodium 140 (135-145) mmol/L Potassium 3.6 (3.3-5.1) mmol/L Chloride 105 (96-108) mmol/L Carbon Dioxide 26 (22-29) mmol/L Anion Gap 13 (12-20) BUN 9 (9-16) mg/dL Creatinine 0.77 (0.5-1.4) mg/dL Estim Creat Clear Calc 216.4 Estimated GFR > 60 Random Glucose 110 (60-115) mg/dL Calcium 9.1 (8.4-10.2) mg/dL Total Bilirubin 0.5 (0.0-1.0) mg/dL AST 14 (5-37) U/L ALT 15 (0-40) U/L Alkaline Phosphatase 103 (39-117) U/L Troponin I High Sens < 3.5 (<3.5-35.0) ng/L Total Protein 7.0 (6.5-8.0) g/dL Albumin 4.2 (3.5-5.0) g/dL 12/14/22 12/14/22 Range/Units 06:21 06:21 WBC (4.8-10.8) X10*3/uL RBC (4.60-5.80) X10*6/uL Hgb (14.0-18.0) g/dl Hct (42.0-52.0) % MCV (80.0-98.0) fL MCH (27.0-33.0) pg MCHC (31.0-36.0) g/dl RDW (11.0-16.0) % Plt Count (160-400) X10*3/uL MPV (9.4-12.4) fL Absolute Nucleated RBC (0.0-0.012) X10*3/uL Nucleated RBC % (auto) (0.0-0.2) /100WBC PT 12.3 (10.0-13.1) SEC INR 1.1 (0.9-1.1) APTT 31.4 (26.0-36.4) SEC D-Dimer High Sensitivty 189 NG/ML Sodium (135-145) mmol/L Potassium (3.3-5.1) mmol/L Chloride (96-108) mmol/L Carbon Dioxide (22-29) mmol/L Anion Gap (12-20) BUN (9-16) mg/dL Creatinine (0.5-1.4) mg/dL Estim Creat Clear Calc Estimated GFR Random Glucose (60-115) mg/dL Calcium (8.4-10.2) mg/dL Total Bilirubin (0.0-1.0) mg/dL AST (5-37) U/L ALT (0-40) U/L Alkaline Phosphatase (39-117) U/L Troponin I High Sens < 3.5 (<3.5-35.0) ng/L Total Protein (6.5-8.0) g/dL Albumin (3.5-5.0) g/dL Independent Interpretation I performed an independent interpretation of an: EKG Interpretation: My interpretation of the patient's 12 EKG done at 03:00 hours is as follows: Normal sinus rhythm with a rate of 94, normal NV interval, QRS duration and QTC interval, no ST segment elevation, no ST segment depression, no PACs, no PVCs, this is a normal EKG. Discharge Plan Discharge Clinical Impression: Chest pain Patient Disposition: Home, Self-Care Instructions: Chest Pain (ED) Additional Instructions: Your laboratory evaluation was normal. Your D-dimer (a marker of making too many blood clots) was normal which is reassuring and suggests that a blood clot to your lungs is not the cause of your pain. Your EKG was normal. Your troponin ( marker of heart damage) was initially normal and there repeat 3 hour test was also normal which is very reassuring At this time, I believe that the pain that your experiencing her chest is caused by muscle pain. Take ibuprofen 200 mg pills, 3 pills every 6 hours as needed for pain. Take Tylenol (acetaminophen) 500 mg pills, 2 pills every 4 to 6 hours as needed for pain. Follow-up with your doctor in 2 days. Please return to the emergency department if your symptoms get worse or if you develop any symptoms that are concerning to you. Prescriptions: No Action amoxicillin 500 mg tablet 500 mg PO Q12H Qty: 20 0RF ondansetron HCl [Zofran] 4 mg tablet 4 mg PO Q8H PRN (Reason: nausea and vomiting) Qty: 14 0RF azithromycin 500 mg tablet 500 mg PO DAILY 6 Days Qty: 6 0RF amoxicillin-pot clavulanate [Augmentin] 875-125 mg tablet 1 tab PO Q12H 10 Days Qty: 20 0RF ibuprofen 800 mg tablet 800 mg PO Q8H PRN (Reason: pain) Qty: 30 0RF oxycodone-acetaminophen 5-325 mg tablet 1 tab PO Q6H PRN (Reason: pain) Qty: 10 0RF doxycycline hyclate 100 mg tablet 100 mg PO Q12H 7 Days Qty: 14 0RF oxycodone 5 mg tablet 5 mg PO Q4H PRN (Reason: pain) Qty: 10 0RF Rx Instructions: Patient may request partial fill amoxicillin-pot clavulanate [Augmentin] 875-125 mg tablet 1 tab PO BID 10 Days Qty: 20 0RF bacitracin 500 unit/gram ointment 1 appl topical BID Qty: 30 0RF ibuprofen 600 mg tablet 600 mg PO Q6H PRN (Reason: fever or pain) Qty: 30 0RF amoxicillin-pot clavulanate [Augmentin] 875-125 mg tablet 1 tab PO BID 10 Days Qty: 20 0RF
[2022-12-14 06:32] LABS: INTERNATIONAL NORM RATIO 1.1 (0.9-1.1); Prothrombin Time 12.3 SEC (10.0-13.1)
[2022-12-14 06:35] LABS: D Dimer High Sensitivity 189 NG/ML; Partial Thromboplastin Time 31.4 SEC (26.0-36.4)
[2022-12-14 06:50] LABS: Troponin-I High Sensitivity < 3.5 ng/L (<3.5-35.0)
[2022-12-14 07:20] VITALS: BP 113/71; PULSE 81; RESP 16; O2SAT 97
[2022-12-14 07:37] VITALS: BP 119/70; PULSE 80; RESP 12; TEMP 36.7; O2SAT 99
--- NOTE | 2022-12-14 08:56 | PC.NURSE ---
When in room to d/c pt, pt left
== END 2022-12-14 08:57 | disposition home or self-care (01) ==
PROVIDERS: Emergency Provider Emergency Medicine Emergency Medical Services
DX: R07.9 Chest pain, unspecified (principal); E66.9 Obesity, unspecified; Z68.34 Body mass index [BMI] 34.0-34.9, adult
CPT/HCPCS: 36415; 80053; 84484; 85027; 85379; 85610; 85730; 93005; 99283; 99284

== ENCOUNTER 2023-06-04 07:52 | Emergency (ER) | payer MEDICAID, SELFPAY ==
--- NOTE | ~2023-06-04 | XR_ITS ---
EXAMINATION: XR KNEE, LEFT CLINICAL INFORMATION: Pain COMPARISON: Previous x-rays most recent November 2022 TECHNIQUE: Four views of the left knee. FINDINGS: Bone alignment is normal. No acute fracture or dislocation. Well-corticated soft tissue calcification or ossification adjacent to the medial femoral condyle similar to prior exams likely related to old trauma to the medial collateral ligament. Contour deformity of the medial femoral condyle likely corresponding to known tibial plateau fracture. This appears unchanged. Joint spaces are normal. No joint effusion. Small bony exostosis projecting off the proximal fibular shaft is stable. XR/XR knee LT 4V IMPRESSION: No acute fracture or dislocation. Stable appearance to the medial tibial plateau fracture from November 2022. Evidence of old trauma to the medial collateral ligament.
[2023-06-04 07:57] VITALS: BP 134/74; PULSE 89; RESP 14; TEMP 37; O2SAT 97; BMI 32.5
--- NOTE | 2023-06-04 08:40 | ED.LOWEXIN ---
HPI - Extremity Injury (Lower) General Chief Complaint: Extremity Injury, Lower Stated Complaint: l leg pain surgery 6 mos ago Time Seen by Provider: 06/04/23 08:29 Source: patient Mode of arrival: ambulatory Limitations: no limitations History of Present Illness HPI Narrative: 23-year-old male came in for evaluation of left knee pain. S/p fall and traumatic left knee tibial plateau fracture about 6 months ago, S/P tib fib orthopedic surgery at [facility] (record is not available at the current time ) patient was told that he is going to need knee surgery at some point. Patient declined any recent injury or trauma to the left knee able to ambulate. Related Data Previous Rx's Medication Instructions Recorded amoxicillin 500 mg tablet 500 mg PO Q12H #20 tabs 08/03/20 ondansetron HCl 4 mg tablet 4 mg PO Q8H PRN nausea and 08/03/20 (Zofran) vomiting #14 tabs azithromycin 500 mg tablet 500 mg PO DAILY 6 days #6 tabs 02/09/21 amoxicillin 875 mg-potassium 1 tab PO Q12H 10 days #20 tabs 05/15/21 clavulanate 125 mg tablet (Augmentin) ibuprofen 800 mg tablet 800 mg PO Q8H PRN pain #30 tabs 05/15/21 amoxicillin 875 mg-potassium 1 tab PO BID 10 days #20 tabs 05/16/21 clavulanate 125 mg tablet (Augmentin) oxycodone-acetaminophen 5 mg-325 1 tab PO Q6H PRN pain #10 tabs 05/17/21 mg tablet doxycycline hyclate 100 mg tablet 100 mg PO Q12H 7 days #14 tabs 06/08/21 oxycodone 5 mg tablet 5 mg PO Q4H PRN pain #10 tabs 06/08/21 amoxicillin 875 mg-potassium 1 tab PO BID 10 days #20 tabs 11/01/21 clavulanate 125 mg tablet (Augmentin) bacitracin 500 unit/gram topical 1 appl topical BID #30 grams 09/24/22 ointment ibuprofen 600 mg tablet 600 mg PO Q6H PRN fever or pain 12/06/22 #30 tabs Allergies Allergy/AdvReac Type Severity Reaction Status Date / Time No Known Allergies Allergy Verified 11/29/22 22:13 [No Known Allergies*] Review of Systems Review of Systems: All other systems are reviewed and are negative Constitutional: Reports as per HPI and Reports no additional constitutional complaints Eyes: Reports as per HPI and Reports no additional eye complaints Reports system reviewed and no additional complaints, except as documented Cardiovascular: Reports as per HPI and Reports no additional cardiovascular complaints Respiratory: Reports as per HPI and Reports no additional respiratory complaints Gastrointestinal: Reports as per HPI and Reports no additional gastrointestinal complaints Genitourinary: Reports no additional female genitourinary complaints Musculoskeletal: Reports no additional musculoskeletal complaints Skin/Breast: Reports system reviewed and no additional complaints, except as docu Psychiatric: Reports no additional psychiatric complaints Endocrine: Reports no additional endocrine complaints Hematologic/Lymphatic: Reports no additional hematologic/lymphatic complaints Allergic/Immunologic: Reports no additional allergic/immunologic complaints Reports system reviewed and no additional complaints, except as documented and Reports Abnormal speech present [facility] Past Medical History Medical History Epistaxis, recurrent Obesity (BMI 35.0-39.9 without comorbidity) Surgical History Hx of appendectomy Social History Social History Alcohol intake: current Alcohol intake frequency: a few times a week Patient Tobacco Use Status: Never used Tobacco Smoked in Last 30 Days: Yes Use of substances other than those prescribed or required for medical reasons: Yes Substance Use Type: Marijuana Advance Directives: No Advance Directives Information Provided: No Current occupational status: previously employed Current occupation: rt handed Physical Exam Vital Signs: Vital Signs: Last Vital Signs Temp 99.0 F 06/04/23 09:02 Pulse 79 06/04/23 09:02 Resp 14 06/04/23 09:02 BP 116/57 L 06/04/23 09:02 Pulse Ox 96 06/04/23 09:02 O2 Del Method Room Air 06/04/23 09:02 BMI result Body Mass Index 32.5 vital signs have been reviewed as appeared to be correct. Blood pressure normal. Heart rate normal. Respiration rate normal. Temperature normal. Oxygen saturation normal. Appearance: Alert. Oriented X3. No acute distress. Head: Normal external exam. Normocephalic. Atraumatic. No [place] signs noted. No raccoon eyes noted Eyes: PERRLA. EOMI. Conjunctiva and sclera normal. Eyelids normal. ENT: TM's Normal. Pharynx normal. Uvula midline. Moist mucous membranes. No trismus noted. No drooling noted. No muffled voice noted. Neck: Normal inspection. Neck supple. FROM. No adenopathy. Thyroid Normal. No meningeal signs. No neck mass noted. CVS: Normal heart rate and rhythm. Heart sound normal. No murmurs noted. Pulses normal throughout. Respiratory: No respiratory distress. Painless inspiration. Breath sounds normal. No wheezes/rales/rhonchi noted. Chest nontender. No accessory muscle usage noted or decreased air movement noted. Abdomen: Soft and nontender. Bowel sounds normal in all 4 quadrants. No distention noted. No organomegaly noted. No visible injury noted. Back: No CVA tenderness. Full range of motion noted. Skin: Skin warm and dry. Normal skin color. Normal skin turgor. No rashes/lesions/lacerations noted. Extremities: Left knee, no deformity, tenderness with palpation on the medial aspect of the knee without swelling or effusion is appreciated, otherwise full range of motion , neurovascularly intact, to all surgical incision of the left lower leg that appear dry, clean, and intact with no sign of infection. Neuro: Oriented X 3. Cranial nerve exam: II-XII are grossly intact No motor deficit. No sensory deficit. Reflexes normal. Course Course Course Narrative: Left old tibial plateau fracture, able to bear weight, patient was supposed to follow-up with orthopedic for left knee surgery. Will refer her to orthopedic /NSAIDs for pain /knee immobilizer/ crutches. Medications Administered Discontinued Medications Generic Name Dose Route Start Last Admin Trade Name Freq PRN Reason Stop Dose Admin Ibuprofen 200 mg 06/04/23 08:38 06/04/23 08:43 Ibuprofen 200 Mg Tablet PO 06/04/23 08:39 200 mg ONCE ONE Administration Medical Decision Making Differential Diagnosis Differential Diagnoses: The differential diagnosis associated with the presentation includes ( Ligamentous injury of the left knee, tibial plateau fracture, Old surgery infection.) Admission/Observation Consideration of admission/observation: Escalation of care including admission/observation considered Independent Interpretation I performed an independent interpretation of an: Plain X-Ray ( left knee: Old man medial plateau fracture. no acute fracture.) Radiology Impression Discussion of test interpretation with radiology: I have reviewed the radiologist's reading. (No acute fracture or dislocation. Stable appearance to the medial tibial plateau fracture from November 2022. Evidence of old trauma to the medial collateral ligament. ) Discharge Plan Discharge Clinical Impression: Closed fracture of tibial plateau Patient Disposition: Home, Self-Care Instructions: Crutch Instructions (ED) Prescriptions: No Action amoxicillin 500 mg tablet 500 mg PO Q12H Qty: 20 0RF ondansetron HCl [Zofran] 4 mg tablet 4 mg PO Q8H PRN (Reason: nausea and vomiting) Qty: 14 0RF azithromycin 500 mg tablet 500 mg PO DAILY 6 Days Qty: 6 0RF amoxicillin-pot clavulanate [Augmentin] 875-125 mg tablet 1 tab PO Q12H 10 Days Qty: 20 0RF ibuprofen 800 mg tablet 800 mg PO Q8H PRN (Reason: pain) Qty: 30 0RF oxycodone-acetaminophen 5-325 mg tablet 1 tab PO Q6H PRN (Reason: pain) Qty: 10 0RF doxycycline hyclate 100 mg tablet 100 mg PO Q12H 7 Days Qty: 14 0RF oxycodone 5 mg tablet 5 mg PO Q4H PRN (Reason: pain) Qty: 10 0RF Rx Instructions: Patient may request partial fill amoxicillin-pot clavulanate [Augmentin] 875-125 mg tablet 1 tab PO BID 10 Days Qty: 20 0RF bacitracin 500 unit/gram ointment 1 appl topical BID Qty: 30 0RF ibuprofen 600 mg tablet 600 mg PO Q6H PRN (Reason: fever or pain) Qty: 30 0RF amoxicillin-pot clavulanate [Augmentin] 875-125 mg tablet 1 tab PO BID 10 Days Qty: 20 0RF Referrals: Landen Castro MD [Physician] -
[2023-06-04] MEDS: Ibuprofen 200 MG TABLET PO (08:43)
[2023-06-04 09:02] VITALS: BP 116/57; PULSE 79; RESP 14; TEMP 37.2; O2SAT 96
== END 2023-06-04 09:37 | disposition home or self-care (01) ==
PROVIDERS: Emergency Provider Emergency Medicine
DX: S82.142A Displaced bicondylar fracture of left tibia, initial encounter for closed fracture (principal); X58.XXXA Exposure to other specified factors, initial encounter; Y93.9 Activity, unspecified; Y92.9 Unspecified place or not applicable; Y99.9 Unspecified external cause status; Z79.899 Other long term (current) drug therapy
CPT/HCPCS: 73564; 99283; 99284

== ENCOUNTER 2023-09-03 11:19 | Emergency (ER) | payer MEDICAID, SELFPAY ==
--- NOTE | ~2023-09-03 | XR_ITS ---
EXAMINATION: XR CHEST CLINICAL INFORMATION: Cough, SOB. COMPARISON: None available. TECHNIQUE: 2 views of the chest were obtained. FINDINGS: No significant abnormality is noted involving the heart, lungs, mediastinum, bony thorax or soft tissues. XR/XR chest 2V IMPRESSION: Unremarkable chest examination.
[2023-09-03 11:38] VITALS: BP 115/73; PULSE 99; RESP 18; TEMP 37.1; O2SAT 98; BMI 34.4
--- NOTE | 2023-09-03 11:38 | ED.GENADULT ---
HPI - General Adult General Chief complaint: Upper Respiratory Symptoms Stated complaint: sob and r eye issue Time Seen by Provider: 09/03/23 13:16 Source: patient Mode of arrival: ambulatory Limitations: no limitations History of Present Illness HPI narrative: Patient is a 23 year old assigned male at with no reported medical history presenting to the emergency department today with a cough and nasal congestion. Patient states that over the last 3 days he has had a cough with nasal congestion. Patient denies any dizziness, lightheadedness, abdominal pain, nausea, vomiting, fever, chills, blurry vision, double vision, loss of vision, chest pain, difficulty breathing, shortness of breath, back pain, night sweats, pain with urination, increased urinary frequency, increased urinary urgency, blood in his urine or stool, syncope or a near syncopal episode, recent trauma or falls, bowel incontinence, bladder incontinence, bowel retention, bladder retention, or any other complaints at this time. Onset (ago): day(s) (3) Severity: mild Severity scale (1-10): 3 Relieving factors: none Exacerbating factors: none Associated symptoms: cough Treatments prior to arrival: none Related Data Previous Rx's Medication Instructions Recorded amoxicillin 500 mg tablet 500 mg PO Q12H #20 tabs 08/03/20 ondansetron HCl 4 mg tablet 4 mg PO Q8H PRN nausea and 08/03/20 (Zofran) vomiting #14 tabs azithromycin 500 mg tablet 500 mg PO DAILY 6 days #6 tabs 02/09/21 amoxicillin 875 mg-potassium 1 tab PO Q12H 10 days #20 tabs 05/15/21 clavulanate 125 mg tablet (Augmentin) ibuprofen 800 mg tablet 800 mg PO Q8H PRN pain #30 tabs 05/15/21 amoxicillin 875 mg-potassium 1 tab PO BID 10 days #20 tabs 05/16/21 clavulanate 125 mg tablet (Augmentin) oxycodone-acetaminophen 5 mg-325 1 tab PO Q6H PRN pain #10 tabs 05/17/21 mg tablet doxycycline hyclate 100 mg tablet 100 mg PO Q12H 7 days #14 tabs 06/08/21 oxycodone 5 mg tablet 5 mg PO Q4H PRN pain #10 tabs 06/08/21 amoxicillin 875 mg-potassium 1 tab PO BID 10 days #20 tabs 11/01/21 clavulanate 125 mg tablet (Augmentin) bacitracin 500 unit/gram topical 1 appl topical BID #30 grams 09/24/22 ointment ibuprofen 600 mg tablet 600 mg PO Q6H PRN fever or pain 12/06/22 #30 tabs benzonatate 100 mg capsule 100 mg PO BID PRN cough 7 days #14 09/03/23 caps doxycycline hyclate 100 mg tablet 100 mg PO BID 7 days #14 tabs 09/03/23 prednisone 20 mg tablet 20 mg PO DAILY 7 days #7 tabs 09/03/23 Allergies Allergy/AdvReac Type Severity Reaction Status Date / Time No Known Allergies Allergy Verified 11/29/22 22:13 [No Known Allergies*] Review of Systems Constitutional: Constitutional: Reports no additional constitutional complaints, Denies chills, Denies fever(s) and Denies night sweats Eyes: Eyes: Reports no additional eye complaints, Denies blurry vision, Denies change in vision, Denies diplopia, Denies eye discharge, Denies loss of vision and Denies eye pain ENT: Denies dizziness and Reports nasal congestion Cardiovascular: Cardiovascular: Reports no additional cardiovascular complaints, Denies chest pain, Denies lightheadedness, Denies Loss of Consciousness and Denies dyspnea Respiratory: Respiratory: Reports no additional respiratory complaints, Reports cough and Denies dyspnea Gastrointestinal: Gastrointestinal: Reports no additional gastrointestinal complaints, Denies abdominal pain, Denies melena, Denies hematochezia, Denies change in bowel habits and Denies change in stool character Genitourinary: Genitourinary: Reports no additional male genitourinary complaints, Denies hematuria, Denies oliguria, Denies difficulty urinating, Denies dysuria, Denies urinary frequency, Denies urinary hesitancy, Denies urinary incontinence and Denies urinary urgency Musculoskeletal: Musculoskeletal: Reports no additional musculoskeletal complaints, Denies numbness and Denies tingling Neurologic: Denies dizziness, Denies loss of vision, Denies numbness and Denies tingling Psychiatric: Psychiatric: Reports no additional psychiatric complaints Endocrine: Endocrine: Reports no additional endocrine complaints Hematologic/Lymphatic: Hematologic/Lymphatic: Reports no additional hematologic/lymphatic complaints Allergic/Immunologic: Allergic/Immunologic: Reports no additional allergic/immunologic complaints PMFSH Past Medical History Attestation statement: The following information was validated with the patient. Source: old records reviewed and nursing notes reviewed Medical History Obesity (BMI 35.0-39.9 without comorbidity) Epistaxis, recurrent Human bite of finger Surgical History Hx of appendectomy Social History Social History Alcohol intake: current Alcohol intake frequency: a few times a week Patient Tobacco Use Status: Never used Tobacco Substance Use Type: Marijuana Advance Directives: No Advance Directives Information Provided: No Current occupational status: previously employed Current occupation: rt handed Physical Exam ED Vital Signs: Vital Signs - 24 hr 09/03/23 11:38 Temperature 98.8 F Pulse Rate 99 Respiratory Rate 18 Blood Pressure 115/73 Pulse Oximetry 98 Oxygen Delivery Method Room Air BMI result Body Mass Index 34.4 Const General: cooperative, no acute distress, alert and awake Nutritional Appearance: well nourished Orientation/consciousness: patient oriented x3 Limitations: no limitations HENMT Head: Yes normal to inspection and Yes atraumatic Ears: hearing grossly normal bilaterally and external ears normal General nose exam: Normal external nose present, no nasal discharge noted and no epistaxis Face and sinus: Yes normal facial exam, No abrasion and No laceration Mouth: Normal oral and palatal mucosa present, no drooling and no muffled voice Eyes General: appearance normal, both eyes and all related structures Periorbital: periorbital findings normal Eyelids: Yes eyelids normal Conjunctivae: conjunctivae normal Pupils: Equal, round and reactive pupils present EOM: EOMs intact bilaterally Neck Neck: Yes normal visual inspection, Yes full ROM and Yes no lymphadenopathy Chest Chest palpation & inspection: normal inspection of the chest Resp Effort & Inspection: normal respiratory effort and able to speak in complete sentences GI Inspection: Yes normal to inspection Neuro General: patient oriented x3 and moves all extremities Cranial nerves: Yes Equal, round and reactive pupils present Cognition (Neuro): normal cognition Motor exam (neuro): 5/5 motor strength present throughout Sensory Exam: Normal double simultaneous stimulation for sensation Coordination: [id number] test normal Extrem General: Yes normal to inspection, Yes full ROM and Yes capillary refill normal Psych Appearance: grossly normal Mental Status: mental status grossly normal Affect: normal affect Attitude: cooperative Thought process: Normal thought process present Thought content: Normal thought content present Insight: Good insight present (Psych) Course Course Course Narrative: RME performed by Dania Hardin PA-C. Patient is a 23 year old assigned male at presenting to the emergency department with a cough and nasal congestion. Imaging and swabs ordered. Patient placed back in the waiting room pending room availability and results. Medical Decision Making Medical Decision Making [facility] Narrative: Patient is a 23 year old assigned male at with no reported medical history presenting to the emergency department today with a cough and nasal congestion. Patient's physical exam was unremarkable. Patient's chest x-ray showed no acute process. Patient's COVID-19 and influenza tests were negative. Patient's RSV test was positive. I explained my physical exam findings as well as all test results to the patient. I answered all questions asked by the patient. I stressed the importance of the patient taking his medication as prescribed. I stressed the importance of the patient following up with his primary care provider. I stressed the importance of the patient returning to the emergency department immediately if his symptoms were to worsen or if he were to develop any dizziness, shortness of breath, difficulty breathing, chest pain, blurry vision, loss of vision, nausea, vomiting, abdominal pain, fever, chills, back pain, or any other complaints. Patient verbalized agreement and understanding with this treatment plan and discharge. Differential Diagnosis Differential Diagnoses: The differential diagnosis associated with the presentation includes Sinusitis RSV COVID-19 Influenza URI Admission/Observation Consideration of admission/observation: Escalation of care including admission/observation considered Patient would have been admitted to the hospital had his work up had any findings where hospital admission was appropriate and his clinical presentation warranted hospital admission. Lab Data [facility] Lab Attestation statement: I reviewed the patient's lab results. My interpretation of these results are in the [facility] Rationale portion of this note. Labs: Lab Results 09/03/23 Range/Units 12:13 Influenza Type A (PCR) NEGATIVE (Negative) Influenza Type B (PCR) NEGATIVE (Negative) RSV RNA Qual (PCR) POSITIVE A (Negative) SARS-CoV-2 RNA (RT-PCR) NEGATIVE (Negative) Independent Interpretation I performed an independent interpretation of an: Plain X-Ray Interpretation: My interpretation is in agreement with the radiologist's impression of this imaging study. EXAMINATION: XR CHEST CLINICAL INFORMATION: Cough, SOB. COMPARISON: None available. TECHNIQUE: 2 views of the chest were obtained. FINDINGS: No significant abnormality is noted involving the heart, lungs, mediastinum, bony thorax or soft tissues. XR/XR chest 2V IMPRESSION: Unremarkable chest examination. Dictated By: Cassius Bhatti MD Signed By: Electronically signed by Cassius Bhatti MD 09/03/23 1492 Radiology Impression Discussion of test interpretation with radiology: I have reviewed the radiologist's reading. Prescription Management I considered prescription management with: Antibiotic (patient prescribed an antibiotic to cover sinusitis) Discharge Plan Discharge Clinical Impression: Respiratory syncytial virus (RSV), Sinusitis Patient Disposition: Home, Self-Care Instructions: Respiratory Syncytial Virus (ED), Sinusitis (ED) Additional Instructions: Follow up with your primary care provider. Return to the emergency department immediately if your symptoms worsen or if you develop any dizziness, shortness of breath, difficulty breathing, chest pain, blurry vision, loss of vision, nausea, vomiting, abdominal pain, fever, chills, back pain, or any other complaints. Prescriptions: New prednisone 20 mg tablet 20 mg PO DAILY 7 Days Qty: 7 0RF benzonatate 100 mg capsule 100 mg PO BID PRN (Reason: cough) 7 Days Qty: 14 0RF doxycycline hyclate 100 mg tablet 100 mg PO BID 7 Days Qty: 14 0RF No Action amoxicillin 500 mg tablet 500 mg PO Q12H Qty: 20 0RF ondansetron HCl [Zofran] 4 mg tablet 4 mg PO Q8H PRN (Reason: nausea and vomiting) Qty: 14 0RF azithromycin 500 mg tablet 500 mg PO DAILY 6 Days Qty: 6 0RF amoxicillin-pot clavulanate [Augmentin] 875-125 mg tablet 1 tab PO Q12H 10 Days Qty: 20 0RF ibuprofen 800 mg tablet 800 mg PO Q8H PRN (Reason: pain) Qty: 30 0RF oxycodone-acetaminophen 5-325 mg tablet 1 tab PO Q6H PRN (Reason: pain) Qty: 10 0RF doxycycline hyclate 100 mg tablet 100 mg PO Q12H 7 Days Qty: 14 0RF oxycodone 5 mg tablet 5 mg PO Q4H PRN (Reason: pain) Qty: 10 0RF Rx Instructions: Patient may request partial fill amoxicillin-pot clavulanate [Augmentin] 875-125 mg tablet 1 tab PO BID 10 Days Qty: 20 0RF bacitracin 500 unit/gram ointment 1 appl topical BID Qty: 30 0RF ibuprofen 600 mg tablet 600 mg PO Q6H PRN (Reason: fever or pain) Qty: 30 0RF amoxicillin-pot clavulanate [Augmentin] 875-125 mg tablet 1 tab PO BID 10 Days Qty: 20 0RF Referrals: [facility] Family Medicine [Provider Group] (Call to establish and follow up with a primary care provider. If you already have a primary care provider, please follow up with them.) [facility] Primary Care, [place] [Provider Group] (Call to establish and follow up with a primary care provider. If you already have a primary care provider, please follow up with them.) [facility] Primary Care,[facility] [Provider Group] (Call to establish and follow up with a primary care provider. If you already have a primary care provider, please follow up with them.) Stand Alone Forms: Work/School Release Interventions: ED Discharge Assessment Last Done: 09/03/23 13:26 Discharge Date/Time: 09/03/23 13:26 Print Language: Belarusian
[2023-09-03 13:07] LABS: Influenza A PCR NEGATIVE (Negative); Influenza B PCR NEGATIVE (Negative); Resp Syncy Virus RNA Qual PCR POSITIVE (Negative); SARS COV2 PCR INHOUSE NEGATIVE (Negative)
== END 2023-09-03 13:26 | disposition home or self-care (01) ==
PROVIDERS: Physician Assistant Medical; Emergency Provider Emergency Medicine
DX: J22 Unspecified acute lower respiratory infection (principal); B97.4 Respiratory syncytial virus as the cause of diseases classified elsewhere; J32.9 Chronic sinusitis, unspecified; R06.02 Shortness of breath; R05.9 Cough, unspecified; R09.81 Nasal congestion; Z20.822 Contact with and (suspected) exposure to COVID-19; Z20.828 Contact with and (suspected) exposure to other viral communicable diseases
CPT/HCPCS: 0241U; 71046; 99282; 99283

== ENCOUNTER 2023-09-04 00:55 | Emergency (ER) | payer MEDICAID, SELFPAY ==
[2023-09-04 01:02] VITALS: BP 132/71; PULSE 105; RESP 22; TEMP 37.1; O2SAT 98; BMI 34.4
--- OUTSIDE RECORDS SUMMARY | 2023-09-04 02:36 | XMS_ITS | Continuity of Care Document ---
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 Refills 0, Soft Stop,Pain , Mild, 11/10/22 14:25:00 EST, Route to Pharmacy Electronically, [facility], Partial fill upon patient request if the prescription i... Start Date: 11/10/22 Stop Date: 11/17/22 Status: Ordered Bactrim DS 800 mg-160 mg oral tablet 1 tablet, By Mouth, 2 times a day, # 10 tablet, 0 Refills, Maintenance, Tablet Start Date: 07/20/10 Stop Date: 07/25/10 Status: Ordered docusate sodium 50 mg oral capsule 1 capsule = 50 mg, By Mouth, 2 times a day, PRN Constipation, # 30 capsule, 0 Refills, Maintenance,Capsule Start Date: 07/20/10 Status: Ordered Flagyl 500 mg oral tablet 1 tablet = 500 mg, By Mouth, Every 8 hours, # 15 tablet, 0 Refills, Maintenance, Tablet Start Date: 07/20/10 Stop Date: 07/25/10 Status: Ordered gabapentin 300 mg oral capsule 300 mg, Capsule, By Mouth, 11/10/22 17:00:00 EST Start Date: 11/10/22 Stop Date: 11/10/22 Status: Completed ibuprofen 400 mg oral tablet 400 mg, 1, tablet, By Mouth, Every 6 hours, PRN, for 7 days, # 28 tablet, Refills 0, Tot. Refills 0, Acute 11/17/22 14:26:00 EST, for pain, 11/10/22 14:26:00 EST, Route to Pharmacy Electronically, [facility], Partial fill upon patient re... Start Date: 11/10/22 Stop Date: 11/17/22 Status: Ordered oxyCODONE 5 mg oral tablet 5 mg, 1, tablet, By Mouth, Every 6 hours, PRN, for 3 days, # 12 tablet, Refills 0, Tot. Refills 0, Acute 11/13/22 14:24:00 EST, Pain , Severe, 11/10/22 14:24:00 EST, Route to Pharmacy Electronically,[facility], Partial fill upon patient... Start Date: 11/10/22 Stop Date: 11/13/22 Status: Ordered Tylenol with Codeine #3 300 mg-30 mg oral tablet 1 tablet, By Mouth, Every 4 hours, PRN Pain, # 25 tablet, 0 Refills, Maintenance, Tablet Start Date: 07/20/10 Status: Ordered Results Radiology Reports * Exam Date Time Procedure Performing Provider Status 11/08/22 12:[address] Angio Ext Lower Left Katie Porter; Auth (Verified) Notes: (CT Angio Ext Lower Left) Reason For Exam: ? vascular injury;Trauma RESULT: CT Angio Ext Lower Left PROCEDURE: CT Angio Ext Lower Left INDICATION: Reason: Trauma; ? vascular injury; Clinical Question(s): Other:; Order Comment: RELEVANT CLINICAL INFORMATION/CLINICAL QUESTION: Other: TECHNIQUE: CT angiography of the left lower extremity was performed using contiguous helical imagesduring injection IV contrast. 100 cc of Omnipaque 300 was administered intravenously. The examination was performed from the upper thigh through the foot. One mm axial images were reconstructed. Sagittal and coronal reformatted images were rendered. High resolution multiplanar, volume rendered and MIP images were created and used to evaluate the abdominal aorta and lower extremity arteries in multiple projections on an independent workstation, with permanent images saved to PACS. Automatic tube current modulation was used to optimize exposure parameters. RADIATION DOSE PARAMETERS: CTDIvol Body: 18.60 mGy, DLP Body: 871 mGy*cm. COMPARISON: 11/07/2022. FINDINGS: Left side: Superficial femoral artery: Patent. Normal caliber and contour. Deep femoral artery: The visualized distal branches are patent. Popliteal artery: Patent. Normal caliber and contour. Anterior tibial artery: Patent to the foot. Enhancement noted in the dorsalis pedis artery. Tibioperoneal trunk: Patent. Posterior tibial artery: Patent to the foot. Enhancement noted in the plantar arteries. Peroneal artery: Patent to the ankle. No extravasation of IV contrast demonstrated to suggest active hemorrhage. OTHER FINDINGS: Soft tissues: No significant intramuscular hematoma. Soft tissue defects of the medial and lateral aspects of the lower leg with associated subcutaneous emphysema. Small knee joint effusion. Diffuse mild edema of the lower extremity. Bones: Unchanged impacted fracture of the medial tibial plateau. No acute dislocation. Stable calcification of the proximal medial collateral ligament. No significant degenerative changes. IMPRESSION: 1. No evidence of traumatic injury of the major arteries of the left lower extremity. 2. No evidence of active hemorrhage. WSN: [id number] Ordering Physician: Felix Munguia Dictated By: Monty Magaña MD Dictated Date/Time: 11/08/22 5:46 pm Reviewed By: Monty Magaña MD Signed By: Monty Magaña MD Signed Date/Time: 11/08/22 5:46 pm Transcribed By: CAMI Transcribed Date/Time: 11/08/22 5:29 pm * Exam Date Time Procedure Performing Provider Status 11/07/22 10:[address] Ext Lower W/O Contrast Left Jason Ma; Sherrie (Verified) Notes: (CT Ext Lower W/O Contrast Left) Reason For Exam: Fracture RESULT: CT Ext Lower W/O Contrast Left CT Ext Lower W/O Contrast Left Hx of Present Illness: was running to the car and fell, leg swelling and painful; Reason: Fracture;Clinical Question(s): Knee; Order Comment: TECHNIQUE: Helical CT without contrast formatted in 3 planes. Weight-based protocol using automatictube modulation was used to optimize exposure parameters. CTDIvol Body: 35.00 mGy, DLP Body: 1072 mGy*cm. COMPARISONS: CT left lower extremity and left knee radiograph 11/07/2022 from [facility] reviewed on Mini. FINDINGS: Bones and joints: Impaction type fracture of the medial tibial plateau anteriorly with 2 mm of depression. No dislocation. Ossification at the origin of the MCL tendon consistent with previous injury. Soft Tissues: Small joint effusion. Surrounding subcutaneous edema. IMPRESSION: Acute mildly impacted fracture of the medial tibial plateau. I have personally reviewed the images and I agree with this report. WSN: [id number] Ordering Physician: Lena Riddle Dictated By: Rohith Magaña DO Dictated Date/Time: 11/08/22 7:11 am Reviewed By: Rob Piedra MD Signed By: Rob Piedra MD Signed Date/Time: 11/08/22 7:16 am Transcribed By: CAMI Transcribed Date/Time: 11/07/22 11:59 pm Vital Signs Most recent to oldest [Reference Range]: 1 2 3 Weight 136 kg (11/10/22 12:12 PM) 136 kg (11/07/22 11:18 PM) Oxygen Saturation [94-100 %] 96 % (11/10/22 3:29 PM) 94 % (11/10/22 3:00 PM) 97 % (11/10/22 2:45 PM) Pulse Rate [55-90 bpm] 89 bpm (11/10/22 3:29 PM) 89 bpm (11/10/22 12:12 PM) 73 bpm (11/10/22 11:51 AM) Blood Pressure [90-138/55-84 mm Hg] 130/78mm Hg (11/10/22 3:29 PM) 116/67mm Hg (11/10/22 2:45 PM) 124/75mm Hg (11/10/22 2:15 PM) Respiratory Rate [16-30 br/min] 20 br/min (11/10/22 6:09 PM) 20 br/min (11/10/22 5:12 PM) 22 br/min (11/10/22 3:29 PM) Temperature [96.8-100.4 DegF] 97.6 DegF (11/10/22 3:29 PM) 98.4 DegF (11/10/22 2:45 PM) 98.2 DegF (11/10/22 2:00 PM) Liters per Minute 6 L/min (11/10/22 2:00 PM) Mode of Delivery (Oxygen) Room air (11/10/22 3:29 PM) Room air (11/10/22 3:00 PM) Room air (11/10/22 2:45 PM) Blood pressure sites Arm, left (11/10/22 3:29 PM) Arm, left (11/10/22 2:00 PM) Arm, left (11/10/22 11:51 AM) Temperature Route Oral (11/10/22 3:29 PM) Temporal (11/10/22 2:45 PM) Temporal (11/10/22 2:00 PM) Dry Weight 136 kg (11/07/22 11:18 PM) Weight Obtained Via Patient/family stated (11/07/22 11:18 PM) Dry Weight Obtained Via Patient/family stated (11/07/22 11:18 PM) Note * Event Display: Cardiac Rhythm Strips Authored Date: [id number] * Cadence Palencia RN: PERFORM Event Display: Discharge/Transfer Note Hospital Authored Date: [id number] Nursing Discharge Note Entered On: 11/10/2022 18:09 EST Performed On: 11/10/2022 18:08 EST by Cadence Palencia RN Nursing Discharge Note 2 Discharge Time : 11/10/2022 18:08 EST Discharge Level of Care at Discharge : Home/Skilled Nursing/Foster Care Patient Left Unit Via : Wheelchair Patient Accompanied Off Unit with : Responsible adult DC Instructions Provided & Signed by Pt : Yes Patient Understands D/C Instructions : Yes Verbalized Understanding of D/C Plan By : Patient Patient Instructions Discharge Signed : Yes Did Pt have Specialty Bed or Wound Vac : No Cadence Palencia RN - 11/10/2022 18:08 EST * Karis SERVIN, Nguyen: MODIFY, SIGN, VERIFY, PERFORM, MODIFY, MODIFY Event Display: Discharge/Transfer Note Hospital Authored Date: [id number] Patient: SANDRA BARNETT Age: 22 years Sex: Male : 2000 Associated Diagnoses: None Author: Karis SERVIN, Nguyen Discharge Information Admission Date: 11/07/2022 Discharge Date 11/10/2022 Principal Discharge Diagnosis Closed fracture of left tibial plateau: Present on admission. Chief Complaint/Reason for Admission Left lower extremity pain Aware of diagnosis: patient, family. Procedures Operative Information Procedure Date: 11/08/2022. Preoperative Diagnosis: left lower extremity compartment syndrome. Postoperative Diagnosis: Same as Preoperative Diagnosis. Procedure Performed: Four compartment fasciotomy of the left lower extremity . Surgeon: Azalia Hopper MD Assistants: Lino Rhodes DO. Anesthesia Type: General. 22 year old male with LLE hyperextension injury who presents with swelling, pain and decrease sensation of the LLE concerning for compartment syndrome . Attending Consultants Allergies Allergic Reactions (Selected) NKA Discharge condition: good Compared to admission: improved Case Management Discharge Plan : (Date Range: 11/03/2022 0:00 EST - 11/10/2022 14:35 EST) Code status: Full Vaccines Given this Hospitalization Hospital Course Patient is a 22-year-old gentleman with no past medical history who presented to [facility] with left lower extremity pain with CT scan images concerning for possible left tibial plateaufracture and clinical evidence of left lower extremity compartment syndrome. Patient underwent fourcompartment fasciotomy of the left lower extremity which she tolerated well without any complications. He remained clinically and hemodynamically normal, without evidence of motor or sensory deficitsin the left lower extremities. He did return to the operating room on 11/10 for fasciotomy site closure which he tolerated well without any complications as well. Patient recovered appropriately and he was deemed ready for discharge home on 11/10/2022 with instructions to follow up outpatient within 2-3 weeks. Patient was given enough po analgesics prescription for pain control. Prescription Given this visit:Prescriptions Acetaminophen (acetaminophen 325 mg oral tablet) 2 tablet = 650 mg, By Mouth, Every 6 hours, # 56 tablet, 0 Refills, [facility] [address] [address] [id number] Next Dose: Ibuprofen (ibuprofen 400 mg oral tablet) 1 tablet = 400 mg, By Mouth, Every 6 hours, # 28 tablet, 0 Refills, [facility], [address] [place] [id number] Next Dose: Oxycodone (oxyCODONE 5 mg oral tablet) 1 tablet = 5 mg, By Mouth, Every 6 hours, # 12 tablet, 0 Refills, [facility], [address] [place] [phone] Next Dose: Patient Instructions Given:Discharge Instructions If you develop fever, chills, increased pain, nausea, vomiting, bleeding, or increased redness or pus around the wound please call the surgery office. A narcotic was prescribed to help reduce your pain. Take only as needed for your pain; you may choose to fill the prescription in a lesser amount. When taking opioids, there is an increase chance of abuse and/or overdose. Other side effects/complications include nausea, vomiting, difficulty breathing, sedation and constipation. Please take medications as prescribed and do not drive while on narcotic medications. Refer to handout for more information. You may continue to take Tylenol 650mg every 4-6 hours for pain control if needed You may remove the bandages 48 hours after surgery. If you have any questions, please call the surgery office Please call your Primary Care Provider within 1 week for post hospital follow up and review of yourmedications. Activity Instructions -Touch down Weight bearing to left lower extremity with knee immobilizer in place??when ambulating -Encourage coughing and deep breathing, use of incentive spirometer -No tub baths until incision(s) has/have healed -May shower 48 hours after surgery -No driving until off narcotics and cleared by Surgery Education Given:Understanding Compartment Syndrome Understanding Compartment Syndrome Patient Follow-up:Added Follow Up Time Frame Comments Mayda SERVIN, Justo Lucas 2 to 3 weeks Please call to schedule follow up appointment with Dr. Ohara within 2 weeks of discharge Discharge Plan Discharge Disposition Discharge: home. * Talha PALUMBO, Cadence: PERFORM Event Display: Patient Education/Instruction Authored Date: [id number] Inpatient Pedi Discharge Instructions [address] [id number] Name: SANDRA BARNETT : 2000 Visit: 11/07/2022 22:36:00 Current Date: 11/10/2022 17:50 Account: [id number] Inpatient Pedi Discharge Instructions We would like to thank you for allowing us to assist you with your healthcare needs. The following includes patient education materials and information regarding your injury/illness. Our entire staffstrives to provide an excellent experience for our patients and their families. PLEASE ENSURE YOU FOLLOW-UP PER THE INSTRUCTIONS BELOW! ?? YOUR OPINION IS IMPORTANT TO US! Please complete the survey you may receive by mail or email. Your feedback will be used to make improvements to the healthcare experiences of our patients and their families. Surveys are administered by [email or web address] ?? If further treatment with your primary care physician or another doctor is recommended, it is important for you to keep the appointment. Call your primary care physician or return to the Emergency Department immediately if your condition worsens, fails to improve, or new symptoms develop. If you need to find a doctor, you can call [facility] for a referral at [phone] or toll free at [phone]) or log in to [email or web address] ?? You can view and manage your care through the patient portal or by using a health care winnie of your choosing. [email or web address] is a website that allows you to securely view your medical information including your hospital discharge summary, office visit summaries, medications and follow-up visits. You can also request appointments, renew medications, and request access to your medical information using a health care winnie of your choosing, or just ask a question. You can enroll at [email or web address] or register during your next office visit. You have been discharged from [facility], Patient Care Unit: [facility]. If you have any questions regarding these instructions after you leave, please call us and we will be happy to assist you. [facility] Your Care Team Attending Physician Ward SERVIN, Azalia Bennett Consulting Providers David Garcia MD; Justo Ohara MD Discharging Providers Nguyen Dyson MD Reason for Admission reports walking and felt lower leg roll, noticed swelling in calf and went to [place]. ?? compartment symdrome with trauma team Your Diagnosis Knee pain, left Closed fracture of left tibial plateau Tests Performed Below is a partial list of the tests performed during your hospitalization. You may have had other tests and procedures not included in this list. Please discuss all test results with your provider. BUN Calcium Ionized CBC w/ Differential CK,TOTAL ONLY Comprehensive Metabolic Panel COVID-19, RSV, and Flu A/B, Rapid PCR Creatinine INR Lytes Magnesium Level Phosphorus Level PTT CT Ext Lower W/O Contrast Left Ext Lower Angio CT Left Primary Care Provider Paula Lawson MD, V Advance Directive Health Care Proxy on File Yes - Health Care Proxy Discharge Vitals Temperature: 97.6 DegF Weight: 136 kg Pulse Rate: 89 bpm ?? Respiratory Rate: 20 br/min ?? Systolic Blood Pressure: 130 mm Hg ?? Diastolic Blood Pressure: 78 mm Hg ?? Oxygen Saturation: 96 % ?? Studies Pending All tests and labs ordered during this hospital stay have been completed unless listed below. Please discuss all pending results with your provider listed above in these instructions. ?? BUN CBC w/ Differential Creatinine Electrolytes (Lytes) Ionized Calcium (Calcium Ionized) Magnesium Level Phosphorus Level What to do next Instructions From Your Doctor Discharge Instructions? If you develop fever, chills, increased pain, nausea, vomiting, bleeding, or increased redness or pus around the wound please call the surgery office. A narcotic was prescribed to help reduce your pain. Take only as needed for your pain; you may choose to fill the prescription in a lesser amount. When taking opioids, there is an increase chance of abuse and/or overdose. Other side effects/complications include nausea, vomiting, difficulty breathing, sedation and constipation. Please take medications as prescribed and do not drive while on narcotic medications. Refer to handout for more information. ?? You may continue to take Tylenol 650mg every 4-6 hours for pain control if needed ?? You may remove the bandages 48 hours after surgery.? If you have any questions, please call the surgery office ?? Please call your Primary Care Provider within 1 week for post hospital follow up and review of yourmedications. ?? Activity Instructions ?? -Touch down Weight bearing to left lower extremity with knee immobilizer in place??when ambulating -Encourage coughing and deep breathing, use of incentive spirometer -No tub baths until incision(s) has/have healed -May shower 48 hours after surgery -No driving until off narcotics and cleared by Surgery?? Discharge Orders You Need to Schedule the Following Appointments Follow Up with??[facility] When??Within 1 to 2 weeks Why: Call to schedule appointment with Dr. Garcia Where: [address] [facility] [address] [place] [address]- Follow Up with??Mayda SERVIN, Justo Lucas When??Within 2 to 3 weeks Why: Please call to schedule follow up appointment with Dr. Ohara within 2 weeks of discharge Where: [address] [place] [address] Drive [address] [facility] [place] [address]- Discharge Medications SANDRA BARNETT :2000 Visit Date:11/07/2022 Medications: Please continue your medications until treatment is completed or stopped by your provider. Medications not listed below should be discontinued. Discuss any questions related to medications with your provider. What How Much When Instructions Next Dose New Acetaminophen (acetaminophen 325 mg oral tablet) 2 tab(s) Oral Every 6 hours as needed for Pain , Mild Duration: 7 Days Pickup at [facility] 3 as needed New Ibuprofen (ibuprofen 400 mg oral tablet) 1 tab(s) Oral Every 6 hours as needed for for pain Duration: 7 Days Pickup at [facility] 3 as needed New Oxycodone (oxyCODONE 5 mg oral tablet) 1 tab(s) Oral Every 6 hours as needed for Pain , Severe Duration: 3 Days Pickup at [facility] 3 as needed Unchanged Docusate (docusate sodium 50 mg oral capsule) 1 capsule Oral Twice a day as needed for Constipation as needed Pharmacy Information [facility] 3: [address] [place], [place] [id number] [phone] Test Results Below is a partial list of the most recent Laboratory test results done prior to this discharge. You may have had other tests and procedures not included in this list. Please discuss all test resultswith your provider. BUN (11/10/2022) ???BUN - 7 mg/dL Calcium Ionized (11/10/2022) ???Calcium, Ionized pH Corrected - 1.24 mmol/L CBC w/ Differential (11/10/2022) ???WBC - 9.0 k/mm3???RBC - 4.70 m/mm3???Hgb - 13.9 Gm/dL???Hct - 40.7 %???MCV - 86.6 femtoliters???MCH - 29.6 pg???MCHC - 34.2 g/dL???Platelet Count - 299 k/mm3???RDW-SD - 44.8 femtoliters???MPV - 10.0 femtoliters???Nucleated RBC (Automated) - 0.0 #/100 WBC'S???Abs. NRBC - 0.0 k/mm3???Abs. Neut - 6.3 k/mm3???Abs. Lymph - 1.9 k/mm3???Abs. [place] - 0.7 k/mm3???Abs. Eo - 0.1 k/mm3???Abs. Baso - 0.0 k/mm3???Neut % - 70.5 %???Lymph % - 21.2 %???[place] % - 7.2 %???Eos % - 0.7 %???Baso % - 0.2 %???Imm Gran - 0.2 %???Abs. Imm Gran - 0.0 k/mm3 CK,TOTAL ONLY (11/08/2022) ???CK, Total - 72 units/L Comprehensive Metabolic Panel (11/07/2022) ???Sodium - 140 mmol/L???Potassium - 3.8 mmol/L???Chloride - 104 mmol/L???Bicarbonate Level - 25 mmol/L???Anion Gap - 11???Glucose Level - 102 mg/dL???BUN - 8 mg/dL???Creatinine-Blood - 0.7 mg/dL???Estimated GFR Creatinine - 134 ML/MIN/1.73 M2???Calcium - 8.5 mg/dL???Protein, Total - 6.9 Gm/dL???[place]in - 3.8 Gm/dL???AG Ratio - 1.2???Alkaline Phosphatase - 90 units/L???AST (SGOT) - 21 units/L???ALT (SGPT) - 18 units/L???Bilirubin, Total - 0.3 mg/dL COVID-19, RSV, and Flu A/B, Rapid PCR (11/07/2022) ???Influenza A PCR - NEGATIVE???Influenza B PCR - NEGATIVE???RSV PCR - NEGATIVE???COVID-19 PCR Specimen Source - NASAL???COVID-19 PCR Result - NEGATIVE Creatinine (11/10/2022) ???Creatinine-Blood - 0.5 mg/dL???Estimated GFR Creatinine - 145 ML/MIN/1.73 M2 INR (11/07/2022) ???INR - 1.0???Protime (PT) - 10.9 seconds Lytes (11/10/2022) ???Sodium - 136 mmol/L???Potassium - 4.4 mmol/L???Chloride - 101 mmol/L???Bicarbonate Level - 24 mmol/L???Anion Gap - 11 Magnesium Level (11/10/2022) ???Magnesium - 1.8 mg/dL Phosphorus Level (11/10/2022) ???Phosphorus - 3.3 mg/dL PTT (11/07/2022) ???APTT - 28.0 seconds Allergies (NKA means No Known Allergies) NKA Problems No qualifying data available Education Materials Below is the list of Educational Leaflet Providered with your Discharge Instructions. Understanding Compartment Syndrome?? Understanding Compartment Syndrome?? Valuables and Belongings I fully understand and agree that [facility] accepts no responsibility for all my personal property including clothing, toilet articles, radios, jewelry, dentures, hearing aids, rings, money, or any other property that is in my possession or is brought to me after admission. I understand certain valuables may be placed in a hospital safe for a short period of time. I understand that the hospital is not liable for loss or damage due to accident, fire, or other natural occurrence while said property is in the safe. I accept full responsibility for any personal property that I keep with me, and will not hold the hospital responsible in case of loss or disappearance. I acknowledge that i have been encouraged to send valuables and belongings home. ?? Review of Valuable and Belonging List: With patient, With family Possessions released to: mother took all belongings except cell phone and recreation worker to pacu. Date for Pt to Sign Valuables/Belongings: 11/09/22 17:10:00 ?? Other Discharge Information ?? Wound Assessment?? Wound Assessment?? Wound Location I: Leg, left lower Wound Type I: Surgical ? Pulmonary Rehab Status?? Pulmonary Rehab Discharge Status?? Respiratory Rate: 20 br/min ? Common Emergency Awareness Tips IS IT A STROKE? Act FAST and Check for these signs: FACE Does the face look uneven? ARM Does one arm drift down? SPEECH Does their speech sound strange? TIME Call at any sign of stroke ?? Heart Attack Signs Chest discomfort: Most heart attacks involve discomfort in the center of the chest and lasts more than a few minutes, or goes away and comes back. It can feel like uncomfortable pressure, squeezing, fullness or pain. Discomfort in upper body: Symptoms can include pain or discomfort in one or both arms, back, neck, jaw or stomach. Shortness of breath: With or without discomfort. Other signs: Breaking out in a cold sweat, nausea, or lightheaded. Remember, MINUTES DO MATTER. If you experience any of these heart attack warning signs, call to get immediate medical attention! ?? Smoking can increase your chances of developing chronic health problems and can cause harmful effects to other family members in your house. If you smoke, you are strongly encouraged to quit. Please call [facility] [employer] at [phone] or [phone] ([phone]) or log in to [email or web address] for referrals to smoking cessation programs. ?? The National Suicide Prevention Hotline is available 23/04 if you or someone you know needs to find a reason to keep living. By calling 8-288-264-Uscreen.[employer] (5826) you'll be connected to a skilled, trained counselor at a crisis center in your area. INPATIENT DISCHARGE INSTRUCTIONS SIGNATURE PAGE SANDRA BARNETT Location:[facility] Registration Date and Time:11/07/2022 22:36 EST Primary Care Physician: Lulu SERVIN , Paula Mitchell, Elsy SAMANTHA BARNETTIS, have received the above patient education materials/instructions and have verbalized understanding. If ambulance or transport services are being used I further acknowledge being given a choice of service. ?? If you need to contact me, please call me at this number: . Patient/Family Service Center Director Name: Patient/Family Service Center Director Signature: Relationship to Patient: Witness Name/Signature: Date: * Nguyen Dyson MD: PERFORM Event Display: Patient Education Leaflets Authored Date: [id number] Understanding Compartment Syndrome ?? [id number] Understanding Compartment Syndrome A compartment is a group of muscles, blood vessels, and nerves. This group is enclosed by strong tissue called fascia. An injury or other problem may cause tissue inside the compartment to swell. Or blood or other fluid may build up. Either can lead to too much pressure inside the compartment. The pressure can quickly damage muscle and other tissues. The condition is an emergency that should be treated right away. Compartment syndrome most often affects the legs, arms, feet, hands, and buttocks. Causes of compartment syndrome The most common cause is an injury. It's often a major injury, such as a broken bone, crush injury,or severe burn. But more minor injuries can also lead to it. A bandage, splint, or cast put on too tightly can also cause it. In rare cases, causes include animal bites, bleeding disorders, or injecting illegal drugs. ?? Symptoms of compartment syndrome These include: ??? Pain that gets worse quickly ??? Pain beyond what is expected for the type of injury ??? Burning or aching felt deep in the muscle ??? Loss of feeling or numbness ?? Treatment for compartment syndrome Compartment syndrome must be treated as soon as possible. Treatment may include: ??? Removing a cast, splint, or bandage. This can reduce pressure. ??? Keeping your affected arm or leg level with your heart. This helps reduce pressure. ??? Taking prescription or [id number]-[id number] medicines. These can relieve pain and swelling. ??? Getting extra oxygen. This can help limit tissue damage. ??? Managing blood pressure. This prevents low blood pressure and helps the area get enough circulation. ??? Having surgery to open up the fascia. This helps relieve the pressure and prevent further tissue damage. ?? Possible complications If compartment syndrome isn???t treated quickly, muscles and nerves can . muscle can???t berepaired and must be removed. In some cases, you may need surgery to remove the affected body part (amputation). ?? When to call your healthcare provider Call your healthcare provider right away if you have any of these: ??? Severe pain or pain that quickly gets worse. This may be hours after the injury. ??? Pain that doesn't get better after taking pain medicines ??? Numbness or tingling ??? Weakness ??? Problems moving affected muscles ??? New symptoms ?? Last Reviewed Date: 2022 ?? 6730-1572 [employer]. All rights reserved. This information is not intended as a substitute for professional medical care. Always follow your healthcare professional's instructions. ?? * Karis SERVIN, Nguyen: PERFORM Event Display: Patient Education Leaflets Authored Date: [id number] Understanding Compartment Syndrome ?? [id number] ??Qu?? es el s??ndrome compartimental? Un compartimento es un juliano de m??sculos, vasos sangu??neos y nervios. Zina juliano est?? rodeado por un tejido vinicius llamado fascia. Jovanny lesi??n u otro problema pueden hacer que el tejido dentro de zina compartimento se inflame. Puede acumularse aylin u otro l??quido. Cualquiera de estos causa demasiada presi??n dentro del compartimento. Esta presi??n puede da??ar r??pidamente los m??sculos y otros tejidos. Esta afecci??n es jovanny emergencia que deber??a tratarse de inmediato. El s??ndrome compartimental afecta con m??s frecuencia las piernas, los brazos, los pies, las manosy los gl??teos. Causas del s??ndrome compartimental La causa m??s com??n es jovanny lesi??n. Suele tratarse de jovanny lesi??n importante, aliyah jovanny fractura ??sea, jovanny lesi??n por aplastamiento o jovanny quemadura grave. Aziza algunas lesiones menores tambi??n pueden causarlo. Un vendaje, jovanny f??stacie o un yeso que quedan demasiado ajustados tambi??n pueden causar zina problema. En algunos casos raros, las causas incluyen la mordida de un animal, trastornos de sangrado o inyectarse drogas il??citas. ?? S??ntomas del s??ndrome compartimental Entre ellos, se incluyen los siguientes: ??? Dolor que va en aumento r??pidamente ??? Dolor m??s vinicius del que se espera para el tipo de lesi??n ??? Ardor o dolor que se siente en lo profundo del m??sculo ??? P??rdida de sensibilidad, o entumecimiento ?? Tratamiento del s??ndrome compartimental El s??ndrome compartimental debe tratarse mcgregor pronto aliyah sea posible. El tratamiento puede incluirlo siguiente: ??? Quitar el yeso, la f??stacie o el vendaje. [place] puede reducir la presi??n. ??? Mantener el brazo o la pierna afectados a la altura del coraz??n. [place] ayuda a reducir la presi??n. ??? Madeline medicamentos recetados o de venta deborah. Pueden aliviar el dolor y la hinchaz??n. ??? Recibir m??s ox??phil. Puede ayudar a limitar el da??o en los tejidos. ??? Controlar la presi??n arterial. [place] denice la presi??n arterial baja y permite que la frances tenga jovanny circulaci??n adecuada. ??? Haceruna cirug??a para abrir la fascia. Ayuda a aliviar la presi??n y a evitar m??s da??os en los tejidos. ?? Complicaciones posibles Si un s??ndrome compartimental no se trata de inmediato, los m??sculos y los nervios pueden morir. Los m??sculos muertos no pueden repararse y deben extraerse. En algunos casos, puede ser necesaria jovanny cirug??a para quitar la parte del cuerpo afectada (amputaci??n). ?? Cu??ndo llamar al proveedor de atenci??n m??dica Llame de inmediato a zhao proveedor de atenci??n m??dica si presenta cualquiera de estos s??ntomas: ??? Dolor grave o dolor que empeora r??pidamente. [place] puede pasar horas despu??s de la lesi??n. ??? Dolor que no se leatha con medicamentos ??? Entumecimiento u hormigueo ??? Debilidad ??? Problemas para farm truck driver los m??sculos afectados ??? S??ntomas nuevos ?? Last Reviewed Date: 2022 ?? 2006-1502 [employer]. All rights reserved. This information is not intended as a substitute for professional medical care. Always follow your healthcare professional's instructions. ?? Hospital Progress note * May SERVIN, Isamar Gerard: PERFORM Event Display: Progress Note Hospital Authored Date: [id number] Patient: ??SANDRA BARNETT ? Age:??22 Years?Sex:??Male?:??2000?? Subjective Pt was evaluated at bedside this AM. No acute events overnight. He is NPO for OR today, and denies any n/v. Denies any CP, SOB, fevers/ chills. Otherwise hemodynamically stable. Review of Systems Per subjective findings Physical Exam Vitals & Measurements T:??98.9?F ?? HR:??86(Monitored)?? ND:??89?? RR:??20?? BP:??92/64?? SpO2:??100%?? WT:??136??kg?? Constitutional:??No acute distress, alert, awake. ? Cardiac: RRR. ? Respiratory: CTA. ? Abdomen:??soft, non-tender, non-distended? Neurologic: alert & oriented x 3. Motor and sensation intact? Extremities: LLE??swelling with dressing, without saturation, tender with movement LLE medial and lateral incision CDI, sutures in place with wound slightly opened, moving all four extremities spontaneously.? Assessment/Plan .??Luiz is a 22-year-old male with no PMHx who presented to the ED with left lower extremity pain. ??Images from outside hospital demonstrated concern for possible left tibial plateau fracture. Upon examination due to swelling of the left lower extremity with pain with passive range of motion and changes in sensation of the left lower extremity compared to right, there was suspicion for compartment syndrome. He is now s/p fasciotomy on 11/08.??Tertiary negative for additional injuries.??Due to??concern for vascular injury,??11/08 CTA LLE was obtained and negative for vascular injury.? Injuries: Compartment syndrome ?? Consults: Ortho: - Touch down weight bearing with knee immobilizer and FU outpatient for surgical planning ?? Plan: - OR today for wound closure - May resume diet postop - May be DC'd from PACU postop -??Multimodal control - Antiemetic regimen - Appreciate Ortho recommendations ?? Case discussed with Dr. Ohara Trauma [id number] Intake and Output Intake and Output Results?? This visit (24 hour periods starting at 07:00 EST)? 11/10/22 *?? 11/09/22?? 11/08/22?? Total Summary?Intake mL?? 605?? 960?? 1,297.5?Output mL?? --?? --?? 300?Fluid Balance ?? 605?? 960?? 997.5?? Intake (2)?Lactated Ringers Injection 1,000 mL mL?? 605?? --?? 907.5?Oral Fluids mL?? --?? 960?? 390?Total?? 605?? 960?? 1,297.5?? Output (1)?Urine Voided mL?? --?? --?? 300?Total?? --?? --?? 300?? Counts (3)?Oral Fluids mL?? --?? 960?? 390?Urine Count ?? 2?? 3?? 7?Urine Voided mL?? --?? --?? 300? * This column has not completed the indicated time period.?? Labs Last 24 Hours BLOOD COUNT & DIFF ? Event Name?? Event Result?? Date/Time?? WBC 9 k/mm3 11/10/22 09:32:00 RBC 4.7 m/mm3 11/10/22 09:32:00 Hgb 13.9 Gm/dL 11/10/22 09:32:00 Hct 40.7 % 11/10/22 09:32:00 MCV 86.6 femtoliters 11/10/22 09:32:00 MCH 29.6 pg 11/10/22 09:32:00 MCHC 34.2 g/dL 11/10/22 09:32:00 Platelet Count 299 k/mm3 11/10/22 09:32:00 MPV 10 femtoliters 11/10/22 09:32:00 Nucleated RBC (Automated) 0 #/100 WBC'S 11/10/22 09:32:00 ? CHEM GENERAL ? Event Name?? Event Result?? Date/Time?? Sodium 136 mmol/L 11/10/22 09:32:00 Chloride 101 mmol/L 11/10/22 09:32:00 Bicarbonate Level 24 mmol/L 11/10/22 09:32:00 Anion Gap 11 11/10/22 09:32:00 BUN 7 mg/dL 11/10/22 09:32:00 Creatinine-Blood 0.5 mg/dL??Low 11/10/22 09:32:00 Calcium, Ionized pH Corrected 1.24 mmol/L 11/10/22 09:32:00 Phosphorus 3.3 mg/dL 11/10/22 09:32:00 Magnesium 1.8 mg/dL 11/10/22 09:32:00 ? * Cadence Palencia RN: PERFORM, SIGN, VERIFY, MODIFY, SIGN, MODIFY, SIGN Event Display: Progress Note Hospital Authored Date: Patient: SANDRA BARNETT Age: 22 years Sex: Male : 2000 Associated Diagnoses: None Author: Cadence Palencia RN Findings Problem Related to Alteration in Comfort : Alteration in Comfort/new 11/10/2022 7:00 EST Alteration in Comfort Related to Injury, Surgery, Other: Compartment syndrome s/p Left tibial plateau fracture Goals & Outcomes: Comfort Pt will report acceptable level of comfort & pain control Interventions Implemented: Comfort Assess pain using appropriate pain scale/tools, Assess aggravating factors & prevent them accordingly Goals/Interventions, Comfort Yes Comfort, Problem Start 11/08/2022 5:59 Reviewed plan with, Comfort Patient Patient Progression, Comfort Pt progressing according to plan Comfort, Problem Ongoing Yes . Narrative/Incidental VSS,afebrile,alert. LS clear bilat.IS in use.Abd soft (+) BSx4. Remains NPO. Left leg elevated at pillow,dsg C/D/I (+) CMS to left foot. C/O left leg pain -05/10-Tylenol,Oxycodone,Gabapentin given. IV angio right AC patent-IV fluids as ordered.Patient sent to OR around 1130. Back to unit at 1530. VSS,afebrile. Left leg elevated. (+) CMS to foot. No C/O any pain. IV fluids as ordered.Voided x 1.Patient DC home at 1810-instuctions given.. * Salma Freeman: PERFORM, SIGN, VERIFY Event Display: Progress Note Hospital Authored Date: [id number] Patient: SANDRA BARNETT Age: 22 years Sex: Male : 2000 Associated Diagnoses: None Author: Salma Freeman Findings Evaluation Patient alert and oriented x3. Patient complains of pain mild pain overnight, medicated with PRN oxycodone. NPO since midnight. See biophysical for complete head to toe assessment. Call webb within reach, patient able to make needs known. Safety precautions in place. . Discharge Information Rehabilitation Discharge : Rehab Discharge Index 11/08/2022 8:45 EST Comments on treatment indicated Patient is safe when mobilizing with crutches. Nofurther skilled PT needed in this setting unless he undergoes any further interventions or experiences a change in status. He can mobilize at jose in the room. PT signing off. Defer outpatient needs to Crutches: distance >50 Full chart review completed Yes Hospital course see comment Other findings Other findings CT Lower extremity WO contrast * BHSPowerscribe , CIS S: TRANSCRIDARIAN Piedra MD, Rob H: VERIFY Rohith Magaña DO: SIGN Event Display: Result: Authored Date: [id number] CT Ext Lower W/O Contrast Left Hx of Present Illness: was running to the car and fell, leg swelling and painful; Reason: Fracture;Clinical Question(s): Knee; Order Comment: TECHNIQUE: Helical CT without contrast formatted in 3 planes. Weight-based protocol using automatictube modulation was used to optimize exposure parameters. CTDIvol Body: 35.00 mGy, DLP Body: 1072 mGy*cm. COMPARISONS: CT left lower extremity and left knee radiograph 11/07/2022 from [facility] reviewed on Mini. FINDINGS: Bones and joints: Impaction type fracture of the medial tibial plateau anteriorly with 2 mm of depression. No dislocation. Ossification at the origin of the MCL tendon consistent with previous injury. Soft Tissues: Small joint effusion. Surrounding subcutaneous edema. IMPRESSION: Acute mildly impacted fracture of the medial tibial plateau. I have personally reviewed the images and I agree with this report. WSN: [id number] Ordering Physician: Lena Riddle Dictated By: Rohith Magaña DO Dictated Date/Time: 11/08/22 7:11 am Reviewed By: Rob Piedra MD Signed By: Rob Piedra MD Signed Date/Time: 11/08/22 7:16 am Transcribed By: CAMI Transcribed Date/Time: 11/07/22 11:59 pm CTA Lower extremity vessels - left * BHSPowerscridarian , CIS S: Monty Gambion MD: VERIFY Event Display: Result: Authored Date: PROCEDURE: CT Angio Ext Lower Left INDICATION: Reason: Trauma; ? vascular injury; Clinical Question(s): Other:; Order Comment: RELEVANT CLINICAL INFORMATION/CLINICAL QUESTION: Other: TECHNIQUE: CT angiography of the left lower extremity was performed using contiguous helical imagesduring injection IV contrast. 100 cc of Omnipaque 300 was administered intravenously. The examination was performed from the upper thigh through the foot. One mm axial images were reconstructed. Sagittal and coronal reformatted images were rendered. High resolution multiplanar, volume rendered and MIP images were created and used to evaluate the abdominal aorta and lower extremity arteries in multiple projections on an independent workstation, with permanent images saved to PACS. Automatic tube current modulation was used to optimize exposure parameters. RADIATION DOSE PARAMETERS: CTDIvol Body: 18.60 mGy, DLP Body: 871 mGy*cm. COMPARISON: 11/07/2022. FINDINGS: Left side: Superficial femoral artery: Patent. Normal caliber and contour. Deep femoral artery: The visualized distal branches are patent. Popliteal artery: Patent. Normal caliber and contour. Anterior tibial artery: Patent to the foot. Enhancement noted in the dorsalis pedis artery. Tibioperoneal trunk: Patent. Posterior tibial artery: Patent to the foot. Enhancement noted in the plantar arteries. Peroneal artery: Patent to the ankle. No extravasation of IV contrast demonstrated to suggest active hemorrhage. OTHER FINDINGS: Soft tissues: No significant intramuscular hematoma. Soft tissue defects of the medial and lateral aspects of the lower leg with associated subcutaneous emphysema. Small knee joint effusion. Diffuse mild edema of the lower extremity. Bones: Unchanged impacted fracture of the medial tibial plateau. No acute dislocation. Stable calcification of the proximal medial collateral ligament. No significant degenerative changes. IMPRESSION: 1. No evidence of traumatic injury of the major arteries of the left lower extremity. 2. No evidence of active hemorrhage. WSN: [id number] Ordering Physician: Felix Munguia Dictated By: Monty Magaña MD Dictated Date/Time: 11/08/22 5:46 pm Reviewed By: Monty Magaña MD Signed By: Monty Magaña MD Signed Date/Time: 11/08/22 5:46 pm Transcribed By: CAMI Transcribed Date/Time: 11/08/22 5:29 pm Patient Care team information Care Team Personnel Name: Paula Lawson MD, V Position: Reference Physician Member Role: PCP Address: Address: [address] [place] [id number]- Name: Suzanna Ray RN Position: [facility] RN Member Role: Primary Care Nurse Name: Lena Riddle DO Position: [facility] Resident Member Role: ED Resident Address: Address: [address] [place] [address] [place] [address]- Name: Arelis Hussein Position: [facility] ED RN W/OE and Tasks Member Role: Patient Care Provider Name: Crow Donahue Position: [facility] ED TA [facility] Member Role: Adult Basic Education Teacher Name: Larisa Dangelo MD Position: [facility] ED Medicine MD Member Role: Chart Review Address: Address: [address] [place] [address] [place] [address]- Care Team Related Persons Name: RON CORREA Address: home [address] [place] [id number]
== END 2023-09-04 02:36 | disposition left against medical advice (07) ==
PROVIDERS: Emergency Provider Emergency Medicine
DX: R06.02 Shortness of breath (principal)
CPT/HCPCS: 99281

== ENCOUNTER 2023-11-05 19:46 | Emergency (ER) | payer MEDICAID, SELFPAY ==
[2023-11-05 19:53] VITALS: BP 134/84; PULSE 76; RESP 18; TEMP 37.1; O2SAT 98; BMI 33.3
--- NOTE | 2023-11-05 19:53 | ED.GENADULT ---
HPI - General Adult General Chief complaint: Upper Respiratory Symptoms Stated complaint: vomiting Time Seen by Provider: 11/05/23 22:25 Source: patient, RN notes reviewed and old records reviewed Mode of arrival: ambulatory Limitations: no limitations History of Present Illness HPI narrative: 23-year-old male presents for evaluation of fevers, body aches and vomiting. He reports his symptoms started 3 days ago He reports coughing and bilateral back pain Denies any significant chest pain pain He reports vomiting several times today Denies any known sick contacts He has no medical history Related Data Previous Rx's Medication Instructions Recorded amoxicillin 500 mg tablet 500 mg PO Q12H #20 tabs 08/03/20 ondansetron HCl 4 mg tablet 4 mg PO Q8H PRN nausea and 08/03/20 (Zofran) vomiting #14 tabs azithromycin 500 mg tablet 500 mg PO DAILY 6 days #6 tabs 02/09/21 amoxicillin 875 mg-potassium 1 tab PO Q12H 10 days #20 tabs 05/15/21 clavulanate 125 mg tablet (Augmentin) ibuprofen 800 mg tablet 800 mg PO Q8H PRN pain #30 tabs 05/15/21 amoxicillin 875 mg-potassium 1 tab PO BID 10 days #20 tabs 05/16/21 clavulanate 125 mg tablet (Augmentin) oxycodone-acetaminophen 5 mg-325 1 tab PO Q6H PRN pain #10 tabs 05/17/21 mg tablet doxycycline hyclate 100 mg tablet 100 mg PO Q12H 7 days #14 tabs 06/08/21 oxycodone 5 mg tablet 5 mg PO Q4H PRN pain #10 tabs 06/08/21 amoxicillin 875 mg-potassium 1 tab PO BID 10 days #20 tabs 11/01/21 clavulanate 125 mg tablet (Augmentin) bacitracin 500 unit/gram topical 1 appl topical BID #30 grams 09/24/22 ointment ibuprofen 600 mg tablet 600 mg PO Q6H PRN fever or pain 12/06/22 #30 tabs benzonatate 100 mg capsule 100 mg PO BID PRN cough 7 days #14 09/03/23 caps doxycycline hyclate 100 mg tablet 100 mg PO BID 7 days #14 tabs 09/03/23 prednisone 20 mg tablet 20 mg PO DAILY 7 days #7 tabs 09/03/23 ondansetron 4 mg disintegrating 4 mg PO Q8H PRN nausea and 11/05/23 tablet vomiting #20 tabs Allergies Allergy/AdvReac Type Severity Reaction Status Date / Time No Known Allergies Allergy Verified 11/29/22 22:13 [No Known Allergies*] Review of Systems Constitutional: Constitutional: Reports body ache(s), Reports chills, Reports fever(s), Reports headache(s), Reports malaise and Reports weakness Eyes: Eyes: Denies blurry vision ENT: Reports headache(s) and Denies sore throat Cardiovascular: Cardiovascular: Denies dyspnea Respiratory: Respiratory: Reports cough and Denies dyspnea Gastrointestinal: Gastrointestinal: Denies abdominal pain, Denies nausea and Denies vomiting Musculoskeletal: Musculoskeletal: Reports back pain Integumentary/Breasts: Skin/Breast: Denies rash Neurologic: Reports headache(s) and Reports weakness PMFSH Past Medical History Medical History Obesity (BMI 35.0-39.9 without comorbidity) Epistaxis, recurrent Human bite of finger Surgical History Hx of appendectomy Social History Social History Alcohol intake: current Alcohol intake frequency: a few times a week Patient Tobacco Use Status: Never used Tobacco Substance Use Type: Marijuana Advance Directives: No Advance Directives Information Provided: No Current occupational status: previously employed Current occupation: rt handed Physical Exam ED Vital Signs: Vital Signs - 24 hr 11/05/23 19:53 11/05/23 22:20 Temperature 98.7 F 97.8 F Pulse Rate 76 67 Respiratory Rate 18 16 Blood Pressure 134/84 123/79 Pulse Oximetry 98 97 Oxygen Delivery Method Room Air Room Air BMI result Body Mass Index 33.3 Const General: healthy appearing, comfortable, no acute distress, alert and awake Nutritional Appearance: well nourished Orientation/consciousness: patient oriented x3 HENMT Head: Yes normocephalic and Yes atraumatic Eyes Eyelids: Yes eyelids normal Conjunctivae: conjunctivae normal Sclerae: sclerae normal Corneas: corneas normal Pupils: Equal, round and reactive pupils present EOM: EOMs intact bilaterally Neck Neck: Yes full ROM Resp Effort & Inspection: normal respiratory effort, able to speak in complete sentences and not labored Cardio Rate: regular rate Rhythm: regular rhythm GI Inspection: No distended Palpation (GI): Soft to palpation, not firm, nontender, no guarding and not rigid Skin General skin exam: elasticity normal Neuro General: patient oriented x3 Cranial nerves: Yes Equal, round and reactive pupils present and Yes Bilaterally intact EOM present Cognition (Neuro): normal cognition Extrem Other: Moving all extremities well without any obvious deformities Course Course Course Narrative: This is an RME: Additional HPI, ROS, PE not included below will be deferred to primary provider. 23 yo m presents w/ fatigue, maliase, myalgias, vomiting, subjective fevers & chills since Sunday. Plan viral testing Medical Decision Making Medical Decision Making [facility] Narrative: [age] your healthy male presents for evaluation of flu-like symptoms, he tested positive for COVID-19. His vitals are stable. He has not hypoxic, plan for discharge with Zofran to control his nausea and vomiting. He does not meet criteria for Paxlovid treatment Differential Diagnosis Differential Diagnoses: The differential diagnosis associated with the presentation includes COVID-19 Viral syndrome Bronchitis Pneumonia Influenza Lab Data Labs: Lab Results 11/05/23 Range/Units 20:02 COVID-19 ([facility]) Positive A (Negative) COVID-19 Clin Com See Note Influenza Type A ([facility]E) Negative (Negative) Influenza Type B (JOE) Negative (Negative) Influenza A & B Note See Note Discharge Plan Discharge Clinical Impression: COVID-19 Patient Disposition: Home, Self-Care Instructions: COVID-19 (Coronavirus Disease 2019) (ED) Additional Instructions: You tested positive for COVID-19. Drink lots of fluids pain Use Motrin/Tylenol for fevers, body aches. You may use Zofran for nausea/vomiting. You may take melatonin to help with sleep Follow-up with your primary doctor and return for new or worsening symptoms Prescriptions: New ondansetron 4 mg tablet,disintegrating 4 mg PO Q8H PRN (Reason: nausea and vomiting) Qty: 20 0RF No Action amoxicillin 500 mg tablet 500 mg PO Q12H Qty: 20 0RF ondansetron HCl [Zofran] 4 mg tablet 4 mg PO Q8H PRN (Reason: nausea and vomiting) Qty: 14 0RF azithromycin 500 mg tablet 500 mg PO DAILY 6 Days Qty: 6 0RF amoxicillin-pot clavulanate [Augmentin] 875-125 mg tablet 1 tab PO Q12H 10 Days Qty: 20 0RF ibuprofen 800 mg tablet 800 mg PO Q8H PRN (Reason: pain) Qty: 30 0RF oxycodone-acetaminophen 5-325 mg tablet 1 tab PO Q6H PRN (Reason: pain) Qty: 10 0RF doxycycline hyclate 100 mg tablet 100 mg PO Q12H 7 Days Qty: 14 0RF oxycodone 5 mg tablet 5 mg PO Q4H PRN (Reason: pain) Qty: 10 0RF Rx Instructions: Patient may request partial fill amoxicillin-pot clavulanate [Augmentin] 875-125 mg tablet 1 tab PO BID 10 Days Qty: 20 0RF bacitracin 500 unit/gram ointment 1 appl topical BID Qty: 30 0RF ibuprofen 600 mg tablet 600 mg PO Q6H PRN (Reason: fever or pain) Qty: 30 0RF prednisone 20 mg tablet 20 mg PO DAILY 7 Days Qty: 7 0RF benzonatate 100 mg capsule 100 mg PO BID PRN (Reason: cough) 7 Days Qty: 14 0RF doxycycline hyclate 100 mg tablet 100 mg PO BID 7 Days Qty: 14 0RF amoxicillin-pot clavulanate [Augmentin] 875-125 mg tablet 1 tab PO BID 10 Days Qty: 20 0RF Stand Alone Forms: Work/School Release
--- NOTE | 2023-11-05 20:02 | MHC.EDTECH ---
PATIENT FLU/COVID SWAB COLLECTED AND SENT TO LAB .
[2023-11-05 20:17] LABS: COVID-19 Test Positive (Negative); IDNOW Serial# 08D9AD1C
[2023-11-05 20:21] LABS: IDNOW Serial# 152EDE1D; Influenza A Negative (Negative); Influenza B2 Negative (Negative)
[2023-11-05 22:20] VITALS: BP 123/79; PULSE 67; RESP 16; TEMP 36.6; O2SAT 97
== END 2023-11-05 22:37 | disposition home or self-care (01) ==
PROVIDERS: Physician Assistant; Emergency Provider Internal Medicine
DX: U07.1 COVID-19 (principal); R50.9 Fever, unspecified; R11.2 Nausea with vomiting, unspecified; M79.10 Myalgia, unspecified site
CPT/HCPCS: 87502; 87635; 99283; 99284

== ENCOUNTER 2023-12-03 08:27 | Emergency (ER) | payer MEDICAID, SELFPAY ==
--- NOTE | ~2023-12-03 | CT_ITS ---
EXAMINATION: CT ABDOMEN AND PELVIS WITHOUT CONTRAST CLINICAL INFORMATION: Left lower quadrant pain. COMPARISON: 07/14/2010 TECHNIQUE: Multidetector volumetric imaging was performed from the superior aspect of the liver through the pubic symphysis. Sagittal and coronal reformatted images were obtained on the technologist's workstation. This CT examination was performed using dose optimization techniques as appropriate, variously including the following: *Automated exposure control *Adjustment of mA and/or kV according to patient size (this includes techniques or standardized protocols for targeted exams where dose is matched to indication/reason for exam; i.e. extremities or head) *Use of iterative reconstruction technique DLP: 801 mGy-cm FINDINGS: LUNG BASES: The visualized lung bases are unremarkable. LIVER, GALLBLADDER, AND BILIARY TREE: The noncontrast liver is normal in size and contour. No biliary ductal dilatation is present. Possible gallstones. PANCREAS: Unremarkable. SPLEEN: Unremarkable. ADRENAL GLANDS: Unremarkable. KIDNEYS AND URETERS: The kidneys are normal in size, shape, and attenuation. No hydronephrosis, hydroureter, or calculi seen. No perinephric stranding. BLADDER: Relatively decompressed. GASTROINTESTINAL TRACT: Small and large bowel loops are of normal caliber. No small bowel obstruction. The appendix is surgically absent. ABDOMINAL WALL: No significant hernia is appreciated. LYMPH NODES: Nonspecific mesenteric stranding and edema. Numerous mesenteric lymph nodes. VASCULAR: Normal caliber abdominal aorta. PELVIC VISCERA: Unremarkable. OSSEOUS STRUCTURES: No destructive bone lesions. CT/CT abdomen pelvis wo IV con IMPRESSION: Mesenteric stranding and edema. Numerous mesenteric lymph nodes. This may represent mesenteric lymphadenitis.
[2023-12-03 08:51] VITALS: BP 134/80; PULSE 94; RESP 18; TEMP 36.6; O2SAT 98; BMI 33.1
[2023-12-03 09:17] LABS: MANUAL DIFF FLAG NO
[2023-12-03 09:20] LABS: Basophils Percent Auto 0.3 % (0-2); Eosinophils Percent Auto 0.3 % (0-4); Hematocrit 43.5 % (42.0-52.0); Hemoglobin 15.1 g/dl (14.0-18.0); Imm Gran Abs Auto 0.03 X10*3/uL (0.00-0.03); Imm Gran Pct Auto 0.3 % (0.0-0.4); Lymphocytes Absolute Auto 1.1 X10*3/uL (1.2-4.9); Lymphocytes Percent Auto 9.5 % (20-40); Mean Corpuscular HGB Conc 34.7 g/dl (31.0-36.0); Mean Corpuscular Volume 86.3 fL (80.0-98.0); Mean Platelet Volume 10.5 fL (9.4-12.4); Monocytes Absolute Auto 0.7 X10*3/uL (0.1-1.2); Monocytes Percent Auto 5.8 % (2-11); Neutrophils Absolute Auto 9.5 x10*3/uL (2.0-8.3); Neutrophils Percent Auto 83.8 % (45-73); Platelet Count 229 X10*3/uL (160-400); Red Blood Count 5.04 X10*6/uL (4.60-5.80); Red Cell Distribution Width 13.4 % (11.0-16.0); White Blood Count 11.3 X10*3/uL (4.8-10.8)
[2023-12-03 09:38] LABS: Alanine Aminotransferase 19 U/L (0-40); Albumin Level 4.3 g/dL (3.5-5.0); Alkaline Phosphatase 88 U/L (39-117); Anion Gap 11 (12-20); Aspartate Amino Transferase 18 U/L (5-37); Bilirubin Direct 0.6 mg/dL (0.0-0.5); Bilirubin Total 1.7 mg/dL (0.0-1.0); Blood Urea Nitrogen 12 mg/dL (9-16); Calcium 9.1 mg/dL (8.4-10.2); Carbon Dioxide 26 mmol/L (22-29); Chloride 103 mmol/L (96-108); Creatinine Clr Calc Pharmacy 215.8; Estimated Glomerular Filt Rate > 60; Glucose Random 104 mg/dL (60-115); Lipase 10 U/L (8-78); Magnesium 1.8 mg/dL (1.6-2.6); Potassium 3.5 mmol/L (3.3-5.1); Sodium 136 mmol/L (135-145); Total Protein 7.3 g/dL (6.5-8.0)
--- NOTE | 2023-12-03 10:21 | ED_ITS ---
HPI - General Adult General Chief complaint: Abdominal Pain Stated complaint: Kidney pain Time Seen by Provider: 12/03/23 10:20 Source: patient Mode of arrival: ambulatory Limitations: no limitations History of Present Illness HPI narrative: 23 year old male with no significant pmhx presents to the ED this morning for evaluation of left flank and LLQ pain x3 days. Pain originates along the left flank and radiates to the left lower quadrant. Admits to drinking a 5th of [place] on Sunday (3 days ago) after not consuming alcohol for 6 years. Over the past 3 days he has had intermittent left flank pain which worsened yesterday and is now constant. His last alcoholic drink was 3 days ago. Denies ilicit substance use. He reports associated nausea and vomiting. He has been unable to keep food or drink down. Last episode of vomiting was at 7 this morning prior to arrival in ED. He has not taken any OTC medications for this at home. Last BM this morning was normal. Denies fever, chills, chest pain, SOB, constipation, diarrhea, dysuria, hematuria, penile discharge. Related Data Previous Rx's Medication Instructions Recorded amoxicillin 500 mg tablet 500 mg PO Q12H #20 tabs 08/03/20 ondansetron HCl 4 mg tablet 4 mg PO Q8H PRN nausea and 08/03/20 (Zofran) vomiting #14 tabs azithromycin 500 mg tablet 500 mg PO DAILY 6 days #6 tabs 02/09/21 amoxicillin 875 mg-potassium 1 tab PO Q12H 10 days #20 tabs 05/15/21 clavulanate 125 mg tablet (Augmentin) ibuprofen 800 mg tablet 800 mg PO Q8H PRN pain #30 tabs 05/15/21 amoxicillin 875 mg-potassium 1 tab PO BID 10 days #20 tabs 05/16/21 clavulanate 125 mg tablet (Augmentin) oxycodone-acetaminophen 5 mg-325 1 tab PO Q6H PRN pain #10 tabs 05/17/21 mg tablet doxycycline hyclate 100 mg tablet 100 mg PO Q12H 7 days #14 tabs 06/08/21 oxycodone 5 mg tablet 5 mg PO Q4H PRN pain #10 tabs 06/08/21 amoxicillin 875 mg-potassium 1 tab PO BID 10 days #20 tabs 11/01/21 clavulanate 125 mg tablet (Augmentin) bacitracin 500 unit/gram topical 1 appl topical BID #30 grams 09/24/22 ointment ibuprofen 600 mg tablet 600 mg PO Q6H PRN fever or pain 12/06/22 #30 tabs benzonatate 100 mg capsule 100 mg PO BID PRN cough 7 days #14 09/03/23 caps doxycycline hyclate 100 mg tablet 100 mg PO BID 7 days #14 tabs 09/03/23 prednisone 20 mg tablet 20 mg PO DAILY 7 days #7 tabs 09/03/23 ondansetron 4 mg disintegrating 4 mg PO Q8H PRN nausea and 11/05/23 tablet vomiting #20 tabs ondansetron 4 mg disintegrating 4 mg PO DAILY PRN nausea and 12/03/23 tablet vomiting 5 days #10 tabs pantoprazole 20 mg tablet,delayed 20 mg PO DAILY 20 days #20 tabs 12/03/23 release (Protonix) Allergies Allergy/AdvReac Type Severity Reaction Status Date / Time No Known Allergies Allergy Verified 12/03/23 08:51 [No Known Allergies*] Review of Systems 2 Review of Systems: Constitutional: No fever, chills, fatigue, night sweats, weight changes ENT/Mouth: No ear pain, hearing loss, nasal congestion, sinus pain, rhinorrhea, sore throat Eyes: No eye pain, swelling, redness, vision changes, discharge Cardio: No chest pain, palpitations, LE, orthopnea, peripheral edema Pulm: No SOB, cough, sputum, wheezing, dyspnea, hemoptysis GI: No nausea, vomiting, hematemesis, abdominal pain, diarrhea, constipation, hematochezia, melena, +left flank and LLQ pain : No irregular bleeding, dysuria, frequency, urgency, hesitancy, hematuria, urinary flow changes, urinary incontinence or retention MSK: No back pain, neck pain, joint pain, myalgias Skin: No lesions, rashes Neuro: No weakness, numbness, paresthesias, LOC, dizziness, headache Psych: No anxiety/panic, depression, SI/HI, AH/VH All other systems reviewed and are negative. [facility] Past Medical History Attestation statement: The following information was validated with the patient. Source: old records reviewed and nursing notes reviewed Medical History Obesity (BMI 35.0-39.9 without comorbidity) Epistaxis, recurrent Human bite of finger Surgical History Hx of appendectomy Social History Social History Alcohol intake: current Alcohol intake frequency: a few times a week Patient Tobacco Use Status: Never used Tobacco Substance Use Type: Marijuana Advance Directives: No Advance Directives Information Provided: No Current occupational status: previously employed Current occupation: rt handed Physical Exam ED Vital Signs: Vital Signs - 24 hr 12/03/23 08:51 12/03/23 11:01 Temperature 98 F Pulse Rate 94 78 Respiratory Rate 18 18 Blood Pressure 134/80 123/70 Pulse Oximetry 98 99 Oxygen Delivery Method Room Air Room Air BMI result Body Mass Index 33.1 Vital signs stable Const General: cooperative, healthy appearing, comfortable and no acute distress Orientation/consciousness: patient oriented x3 Limitations: no limitations HENMT Head: Yes normal to inspection, Yes No palpable skull fracture present, Yes normocephalic and Yes atraumatic Eyes General: appearance normal, both eyes and all related structures Conjunctivae: conjunctivae normal Sclerae: sclerae normal Pupils: Equal, round and reactive pupils present EOM: EOMs intact bilaterally Neck Neck: Yes normal visual inspection and Yes full ROM Resp Effort & Inspection: normal respiratory effort Auscultation: clear to auscultation bilaterally Cardio Rate: regular rate Rhythm: regular rhythm GI Other: + obese abdomen, soft, TTP of LUQ and LLQ, no rebound or guarding. Negative barragan sign. normoacive bs x4. Inspection: Yes normal to inspection General: Yes no CVA tenderness Back/Spine/Pelvis Back: no CVA tenderness Skin General skin exam: no rashes or lesions noted Neuro General: patient oriented x3 and gait normal Cranial nerves: Yes Equal, round and reactive pupils present Gait exam (Neuro): Normal gait present Motor exam (neuro): no tremor noted, no asterixis and Motor fasciculations not present Pupils: Normal pupillary reactivity/response: bilateral Extrem General: Yes normal to inspection and Yes capillary refill normal Course Course Course Narrative: 1029-- CBC with slight leukocytosis to 11.3 with left shift, likely secondary to multiple episodes of vomiting. Chemistry without acute electrolyte abnormality requiring intervention. Slight elevation in total and direct bilirubin when compared to priors. Lipase wnl > acute pancreatitis unlikely. > imaging, IVF, and pain control ordered 1320-- urine without infection or blood. Urine drug screen positive for marijuana, otherwise negative. Ethanol undetectable > there is no concern for acute ETOH withdrawal. No asterixis, tremors or tongue fasciculations. CT showing mesenteric stranding and edema with numerous mesenteric lymph nodes possibly representing mesenteric lymphadenitis > findings discussed with my attending physician, Dr. Rouse. On review of serology, patient was COVID positive 1 month ago. Will obtain COVID and flu serology to rule out viral infection, although gastroenteritis is more likely. 1531-- Patient has tested negative for COVID and influenza. Given finding of mesenteric lymphadenitis on CT and symptoms of nausea/vomiting/abdominal pain, there is suspicion for gastroenteritis. Patient is tolerating a milkshake, [place] and crackers in the ED. he has received IV fluids, pain medication and Zofran. I feel comfortable discharging patient home. Patient has remained stable throughout ED visit today. Discussed worrisome signs and symptoms and when to return to the ED. All questions answered at this time. Patient is agreeable with disposition and stable for discharge. Medications Administered Discontinued Medications Generic Name Dose Route Start Last Admin Trade Name Freq PRN Reason Stop Dose Admin Sodium Chloride 1,000 mls @ 999 mls/hr 12/03/23 10:45 12/03/23 14:31 Ns IV 12/03/23 11:45 Infused .Q1H1M DIANA Infusion Morphine Sulfate 2 mg 12/03/23 10:33 12/03/23 11:02 Morphine Sulfate 2 Mg/Ml Cartridge IVPUSH 12/03/23 10:34 2 mg ONCE ONE Administration Protocol Ondansetron HCl 4 mg 12/03/23 10:37 12/03/23 11:01 Ondansetron Hcl 4 Mg/2 Ml Vial IVPUSH 12/03/23 10:38 4 mg ONCE ONE Administration Ondansetron HCl 4 mg 12/03/23 15:00 12/03/23 15:36 Ondansetron Hcl 4 Mg/2 Ml Vial IVPUSH 12/03/23 15:01 4 mg ONCE ONE Administration Medical Decision Making Medical Decision Making MDM Narrative: 23 year old male with no significant pmhx presents to the ED this morning for evaluation of left flank and LLQ pain x3 days. Vital signs stable, afebrile. Patient is nontoxic-appearing and in no acute distress. On exam, obese abdomen, soft, TTP of LUQ and LLQ, no rebound or guarding. Negative barragan sign. normoacive bs x4. No CVAT bilaterally. Differential diagnosis includes gastroenteritis, gastritis, renal colic, nephrolithiasis, hydronephrosis, pancreatitis, EtOH abuse, EtOH intoxication. Lower suspicion for cholecystitis, cholangitis, cholelithiasis. No concern for acute appendicitis given history of appendectomy. Basic labs and UA ordered in triage. Plan for CT scan, IV fluids, pain control and re-evaluation. Differential Diagnosis Differential Diagnoses: The differential diagnosis associated with the presentation includes As above Admission/Observation Consideration of admission/observation: Escalation of care including admission/observation considered Lab Data MDM Lab Attestation statement: I reviewed the patient's lab results. As above 12/03/23 09:07 12/03/23 09:07 Labs: Lab Results 12/03/23 12/03/23 12/03/23 Range/Units 09:07 10:56 14:41 WBC 11.3 H (4.8-10.8) X10*3/uL RBC 5.04 (4.60-5.80) X10*6/uL Hgb 15.1 (14.0-18.0) g/dl Hct 43.5 (42.0-52.0) % MCV 86.3 (80.0-98.0) fL MCH 30.0 (27.0-33.0) pg MCHC 34.7 (31.0-36.0) g/dl RDW 13.4 (11.0-16.0) % Plt Count 229 (160-400) X10*3/uL MPV 10.5 (9.4-12.4) fL Immature Gran % (Auto) 0.3 (0.0-0.4) % Neut % (Auto) 83.8 H (45-73) % Lymph % (Auto) 9.5 L (20-40) % [place] % (Auto) 5.8 (2-11) % Eos % (Auto) 0.3 (0-4) % Baso % (Auto) 0.3 (0-2) % Lymph # (Auto) 1.1 L (1.2-4.9) X10*3/uL [place] # (Auto) 0.7 (0.1-1.2) X10*3/uL Eos # (Auto) 0.0 (0.0-0.4) X10*3/uL Baso # (Auto) 0.0 (0.0-0.2) X10*3/uL Abs Immat Gran (auto) 0.03 (0.00-0.03) X10*3/uL Absolute Neuts (auto) 9.5 H (2.0-8.3) x10*3/uL Absolute Nucleated RBC 0.000 (0.0-0.012) X10*3/uL Nucleated RBC % (auto) 0.0 (0.0-0.2) /100WBC Sodium 136 (135-145) mmol/L Potassium 3.5 (3.3-5.1) mmol/L Chloride 103 (96-108) mmol/L Carbon Dioxide 26 (22-29) mmol/L Anion Gap 11 L (12-20) BUN 12 (9-16) mg/dL Creatinine 0.75 (0.5-1.4) mg/dL Estim Creat Clear Calc 215.8 Estimated GFR > 60 Random Glucose 104 (60-115) mg/dL Calcium 9.1 (8.4-10.2) mg/dL Magnesium 1.8 (1.6-2.6) mg/dL Total Bilirubin 1.7 H (0.0-1.0) mg/dL Direct Bilirubin 0.6 H (0.0-0.5) mg/dL AST 18 (5-37) U/L ALT 19 (0-40) U/L Alkaline Phosphatase 88 (39-117) U/L Total Protein 7.3 (6.5-8.0) g/dL Albumin 4.3 (3.5-5.0) g/dL Lipase 10 (8-78) U/L Urine Color Dark Yellow Urine Appearance Clear Urine pH 7.5 (5.0-9.0) Ur Specific [place] >= 1.030 H (1.005-1.025) Urine Protein Trace (Neg-Trace) mg/dL Urine Glucose (UA) Negative (Negative) mg/dL Urine Ketones Negative (Negative) mg/dL Urine Blood Negative (Negative) Urine Nitrite Negative (Negative) Ur Leukocyte Esterase Trace H (Negative) Urine RBC 0-2 (0-2) /HPF Urine WBC 0-5 (0-5) /HPF Ur Squamous Epith Cells 0-2 (0-2) /HPF Urine Bacteria None Seen (None Seen) Hyaline Casts 0-2 (0-2) /LPF Urine Opiates Screen Not Detected (Not Detect) Urine Fentanyl Screen Not Detected (Not Detect) Ur Barbiturates Screen Not Detected (Not Detect) Ur Phencyclidine Scrn Not Detected (Not Detect) Ur Amphetamines Screen Not Detected (Not Detect) U Benzodiazepines Scrn Not Detected (Not Detect) Urine Cocaine Screen Not Detected (Not Detect) U Marijuana (THC) Screen POSITIVE H (Not Detect) Ethyl Alcohol < 10 mg/dL COVID-19 ([facility]) Negative (Negative) COVID-19 Clin Com See Note Influenza Type A ([facility]) Negative (Negative) Influenza Type B (JOE) Negative (Negative) Influenza A & B Note See Note Independent Interpretation I performed an independent interpretation of an: CT Scan Interpretation: I personally reviewed CT scan and agree with radiologist's interpretation. Radiology Impression Discussion of test interpretation with radiology: I have reviewed the radiologist's reading. External Record Review External record reviewed: Inpatient record, Office record, Outpatient record, Prior outpatient labs, Prior outpatient radiology, Primary care record and Outside ED record Prescription Management I considered prescription management with: Pain Medication Chronic Conditions Patient?s care impacted by: Other (Obesity) Social Determinants Patient?s care significantly limited by Social Determinants of Health including: Other Social Determinant of Health Critical Care Time Critical Care Time Critical Care Time: Yes Total Critical Care Time: 42 Attestation: Critical care time in the amount of 42 minutes has been provided to the patient in terms of direct patient care, frequent reevaluation on IV morphine, review and interpretation of medical data and results, and management of potentially life-threatening conditions. This is all outside of any medical procedures. Discharge Plan Discharge Clinical Impression: Mesenteric lymphadenitis, Abdominal pain Patient Disposition: Home, Self-Care Instructions: Gastroenteritis (ED), Mesenteric Adenitis (ED) Additional Instructions: Your lab workup today is reassuring.? Your urine test is negative for infection and blood. You tested negative for COVID and flu. A CT scan of your abdomen shows?enlarged lymph nodes within the mesentery of your abdomen. This can correlate with infections such as a GI bug or viral infection. Treatment for this is symptomatic. The recommendation is rest and lots of oral hydration.? Stick to a bland diet like soup and toast while you are not feeling well.? You may take Tylenol and ibuprofen as needed. Zofran is an anti-nausea medication. This has been sent to your pharmacy for you to take as needed for nausea.? You can also try over the counter Pepto Bismol or Imodium as needed for upset stomach and diarrhea.? STOP DRINKING ALCOHOL. THIS IS HARMFUL TO YOUR HEALTH. Follow up with your primary care provider as needed. If you do not have a PCP, a referral has been provided to you. For new or worsening symptoms please return to the ED. Prescriptions: New ondansetron 4 mg tablet,disintegrating 4 mg PO DAILY PRN (Reason: nausea and vomiting) 5 Days Qty: 10 0RF pantoprazole [Protonix] 20 mg tablet,delayed release (DR/EC) 20 mg PO DAILY 20 Days Qty: 20 0RF No Action amoxicillin 500 mg tablet 500 mg PO Q12H Qty: 20 0RF ondansetron HCl [Zofran] 4 mg tablet 4 mg PO Q8H PRN (Reason: nausea and vomiting) Qty: 14 0RF azithromycin 500 mg tablet 500 mg PO DAILY 6 Days Qty: 6 0RF amoxicillin-pot clavulanate [Augmentin] 875-125 mg tablet 1 tab PO Q12H 10 Days Qty: 20 0RF ibuprofen 800 mg tablet 800 mg PO Q8H PRN (Reason: pain) Qty: 30 0RF oxycodone-acetaminophen 5-325 mg tablet 1 tab PO Q6H PRN (Reason: pain) Qty: 10 0RF doxycycline hyclate 100 mg tablet 100 mg PO Q12H 7 Days Qty: 14 0RF oxycodone 5 mg tablet 5 mg PO Q4H PRN (Reason: pain) Qty: 10 0RF Rx Instructions: Patient may request partial fill amoxicillin-pot clavulanate [Augmentin] 875-125 mg tablet 1 tab PO BID 10 Days Qty: 20 0RF bacitracin 500 unit/gram ointment 1 appl topical BID Qty: 30 0RF ibuprofen 600 mg tablet 600 mg PO Q6H PRN (Reason: fever or pain) Qty: 30 0RF prednisone 20 mg tablet 20 mg PO DAILY 7 Days Qty: 7 0RF benzonatate 100 mg capsule 100 mg PO BID PRN (Reason: cough) 7 Days Qty: 14 0RF doxycycline hyclate 100 mg tablet 100 mg PO BID 7 Days Qty: 14 0RF ondansetron 4 mg tablet,disintegrating 4 mg PO Q8H PRN (Reason: nausea and vomiting) Qty: 20 0RF amoxicillin-pot clavulanate [Augmentin] 875-125 mg tablet 1 tab PO BID 10 Days Qty: 20 0RF Referrals: [facility] [place] Family Medicine [Provider Group] [facility] [Provider Group] [facility] [facility] [Provider Group] Stand Alone Forms: Work/School Release
[2023-12-03] MEDS: 0.9 % Sodium Chloride 1,000 ML 999 ML IV (10:55)
[2023-12-03 11:00] LABS: Ethanol < 10 mg/dL
[2023-12-03 11:01] VITALS: BP 123/70; PULSE 78; RESP 18; O2SAT 99
[2023-12-03] MEDS: ondansetron HCL 4 MG/2 ML VIAL IVPUSH ×2 (11:01→15:36)
[2023-12-03] MEDS: Morphine Sulfate 2 MG/ML CARTRIDGE IVPUSH (11:02)
[2023-12-03 11:06] LABS: Appearance Urine Clear; Color Urine Dark Yellow; Glucose Urine UA Negative (Negative); Leukocyte Esterase Urine Trace (Negative); Nitrite Urine Negative (Negative); PH 7.5 (5.0-9.0); Specific Gravity - Urine >= 1.030 (1.005-1.025); UMIC TRIGGER UACC YES; Urine Blood Negative (Negative); Urine Ketones Negative (Negative); Urine Protein Trace mg/dL (Neg-Trace)
[2023-12-03 11:17] LABS: Amphetamine Screen Urine Not Detected (Not Detect); Barbiturates, Urine Not Detected (Not Detect); Benzodiazepines Screen Urine Not Detected (Not Detect); Cannabinoid Screen Urine POSITIVE (Not Detect); Cocaine Screen Urine Not Detected (Not Detect); Fentanyl, urine Not Detected (Not Detect); Opiate Screen Urine Not Detected (Not Detect); Phencyclidine Screen Urine Not Detected (Not Detect)
[2023-12-03 11:21] LABS: Bacteria Urine None Seen (None Seen); Hyaline Casts Urine 0-2 /LPF (0-2); RBC Urine 0-2 /HPF (0-2); Squamous Epithelial Cell Urine 0-2 /HPF (0-2); WBC Urine 0-5 /HPF (0-5)
[2023-12-03 15:17] LABS: COVID-19 Test Negative (Negative); IDNOW Serial# 08D9AD1C; IDNOW Serial# 152EDE1D; Influenza A Negative (Negative); Influenza B2 Negative (Negative)
[2023-12-03] MEDS: Lidocaine HCl Viscous 2 % 15 ML SOLUTION MUCOUS MEM (16:13)
[2023-12-03 16:17] VITALS: BP 136/84; PULSE 78; RESP 16; TEMP 37; O2SAT 98
== END 2023-12-03 16:19 | disposition home or self-care (01) ==
PROVIDERS: Physician Assistant Medical; Emergency Provider Emergency Medicine
DX: I88.0 Nonspecific mesenteric lymphadenitis (principal); R10.32 Left lower quadrant pain; R11.2 Nausea with vomiting, unspecified; F12.90 Cannabis use, unspecified, uncomplicated; Z11.52 Encounter for screening for COVID-19; Z79.899 Other long term (current) drug therapy
CPT/HCPCS: 36415; 74176; 80048; 80076; 80307; 81001; 81003; 83690; 83735; 85025; 87502; 87635; 96361; 96374; 96375; 96376; 99284; 99285; J2270; J2405

== ENCOUNTER 2024-06-17 09:18 | Emergency (ER) | payer MEDICAID, SELFPAY ==
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
[2024-06-17 09:21] VITALS: BP 130/80; PULSE 94; RESP 18; TEMP 37; O2SAT 99; BMI 31.3
[2024-06-17] MEDS: Ketorolac Tromethamine 30 MG/ML VIAL IM (09:44)
--- NOTE | 2024-06-17 09:44 | PC.NURSE ---
pt medicated per provider order. effectiveness pending.
--- NOTE | 2024-06-17 10:13 | PC.NURSE ---
xray being completed at this time.
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
[2024-06-17 12:30] VITALS: BP 130/80; PULSE 94; RESP 18; TEMP 37; O2SAT 99
== END 2024-06-17 12:31 | disposition left against medical advice (07) ==
PROVIDERS: Emergency Provider Emergency Medicine
DX: M25.531 Pain in right wrist (principal); M79.601 Pain in right arm; Z79.899 Other long term (current) drug therapy
CPT/HCPCS: 73090; 73110; 96372; 99283; 99284; J1885

== ENCOUNTER 2024-10-14 08:04 | Emergency (ER) | payer MEDICAID, SELFPAY ==
[2024-10-14 08:10] VITALS: BP 134/80; PULSE 66; RESP 20; TEMP 36.3; O2SAT 100; BMI 31.9
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
[2024-10-14] MEDS: Amoxicillin/Potassium Clav 875 MG TABLET PO (12:50)
[2024-10-14] MEDS: Acetaminophen 325 MG TABLET 975 MG PO (12:50)
[2024-10-14 12:58] VITALS: BP 134/80; PULSE 66; RESP 20; TEMP 36.3; O2SAT 100
== END 2024-10-14 12:58 | disposition home or self-care (01) ==
PROVIDERS: Emergency Provider Emergency Medicine
DX: H60.91 Unspecified otitis externa, right ear (principal); H66.91 Otitis media, unspecified, right ear; H92.01 Otalgia, right ear
CPT/HCPCS: 99283

== ENCOUNTER 2025-01-31 12:35 | Emergency (ER) | payer MEDICAID, SELFPAY ==
[2025-01-31 12:54] VITALS: BP 134/74; PULSE 109; RESP 20; TEMP 37.2; O2SAT 100; BMI 31.5
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
[2025-01-31 13:14] VITALS: BP 134/74; PULSE 109; RESP 20; TEMP 37.2; O2SAT 100
== END 2025-01-31 13:15 | disposition home or self-care (01) ==
PROVIDERS: Emergency Provider Emergency Medicine
DX: H66.002 Acute suppurative otitis media without spontaneous rupture of ear drum, left ear (principal); H60.502 Unspecified acute noninfective otitis externa, left ear; H92.02 Otalgia, left ear; F12.90 Cannabis use, unspecified, uncomplicated; Z79.899 Other long term (current) drug therapy
CPT/HCPCS: 99282; 99283

== ENCOUNTER 2025-08-12 13:05 | Emergency (ER) | payer MEDICAID, SELFPAY ==
[2025-08-12 13:27] VITALS: BP 133/68; PULSE 84; RESP 16; TEMP 36.4; O2SAT 99; BMI 32.8
[2025-08-12 14:17] VITALS: BP 122/66; PULSE 80; RESP 18; O2SAT 98
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
[2025-08-12 15:22] VITALS: BP 122/66; PULSE 80; RESP 18; TEMP -17.7; TEMP 0; O2SAT 98
--- OUTSIDE RECORDS SUMMARY | 2025-08-12 17:31 | XMS_ITS | Clinical Summary ---
Author Organization [facility] Address [address] [place] [address] Care Team Providers Care Deputy Brand Inspector Name Role Phone Pcp, No Primary Care Provider Unavailabl e Allergies No known active allergies Medications ibuprofen (MOTRIN) 800 mg tablet Take 1 tablet (800 mg total) by mouth 3 times daily (every 8 hours). 90 tablet 0 Active azithromycin (ZITHROMAX) 250 MG tablet Take two on first day, then one daily for four additional days 6 tablet 0 Active Social History Tobacco Use Types Packs/Day Years Used Date Smoking Tobacco: Never Assessed Sex and Gender Information Value Date Recorded Sex Assigned at Not on file Legal Sex Male 6:31 PM EDT Gender Identity Not on file Sexual Orientation Not on file Last Filed Vital Signs Vital Sign Reading Time Taken Comments Blood Pressure 142/71 11/03/2019 6:17 PM EST Pulse 84 11/03/2019 6:17 PM EST Temperature 35.8 C (96.4 F) 11/03/2019 6:17 PM EST Respiratory Rate 16 11/03/2019 6:17 PM EST Oxygen Saturation 99% 11/03/2019 6:17 PM EST Inhaled Oxygen Concentration - - Weight - - Height - - Body Mass Index - - Plan of Treatment Health Maintenance Due Date Last Done Comments Hepatitis C Virus Screening 2001 HIV Screening 2014 HPV Vaccines (1 - Male 3-dos e series) 02/13/2016 DTaP/Tdap/Td Vaccines (1 - Tdap) 02/13/2020 Hepatitis B Vaccines (1 of 3 - 19+ 3-dose series) 02/13/2020 Influenza Vaccine 05/01/2025 COVID-19 Vaccine ( - 2023-2 5 season) 2025 Pneumococcal Vaccine: Pediat brittany (0-5 Years) and At-Risk Patients (6 to 49 Years) Aged Out No longer eligible b ased on patient's age to complete this topic Insurance MEDICAID OUT OF STATE [facility] Care Teams Deputy Brand Inspector Relationship Specialty Start Date End Date Pcp, No PCP - General General Medicine 06/02/19
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
--- OUTSIDE RECORDS SUMMARY | 2025-08-12 17:31 | XMS_ITS | Data Portability ---
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 [phone], [facility] 02/03/2025 16:02:05 06/16/2025 text/html ROS as noted in the [...] is quite pleased with. MILI BURRIS MD [address] [place] [address],[address], [phone], [facility] 06/16/2025 14:02:41
--- OUTSIDE RECORDS SUMMARY | 2025-08-12 17:31 | XMS_ITS | Clinical Summary ---
Author Organization [employer] Address [address] [place] [address] Care Team Providers Care Spinning Frame Fixer Name Role Phone [email or web address] VINEET Primary Care Provider [phone] Medications acetaminophen (Tylenol) 500 MG tablet Take by mouth. 3 tabs daily at once by mouth Active Active Problems Problem Noted Date Diagnosed Date Compartment syndrome of left lower extremity Overview (11/15/2022): And tibial plateau fx, admission at [facility] 11/07-11/10/22, underwent 4 compartment fasciotomy Assessment & Plan (12/28/2022 2:00 PM EDT): Patient is here for a HDF Admitted to [facility] from 11/07-11/10 with LLE hyperextension injury presented with swelling, pain and decrease sensation of LLE concerning for compartment syndrome. Patient underwent four compartment fasciotomy of LLE. And Tibial Plateau fixation Procedure was tolerated well without complications. Patient returned to OR on 11/10/22 for fasciotomy site closure. Discharged with PO analgesics acetaminophen, ibuprofen and oxycodone. Patient was supposed to follow up with surgery within 2 weeks of discharge, but never did. He most recently presented to the ED with leg pain and sutures were still in place, patient was not using crutches and walking complaining of pain. Patient had the sutures removed in ED and then discharged home to F/U with orthopedics and to use crutches. Today pt is still c/o difficulty ambulating and knee pain, not using crutches. The surgical incision is almost 100% healed, no discharge. No tenderness, no redness Plan: Ortho referral F/u with PCP afterwards Immunizations Immunization Administration Dates Next Due DTaP 03/14/2004,12/24/2002,06/19/2002 ,2001 HPV, Quadrivalent 11/28/2011,07/15/2011,04/14/20 11 Hep A, ped/adol, 2 dose 04/14/2011,03/31/2010 Hep B, Adolescent or Pediatric 06/19/2002,2001,2001 Hib (HbOC) 06/19/2002,2001,2001 IPV 03/31/2010,12/24/2002,2001 ,2001 Influenza, IIV3, injectable 09/08/2010 MMR 06/19/2002 MMRV 03/31/2010 Meningococcal MCV4P [id number] 02/06/2014 Pneumococcal Conjugate PCV 7 2001,05/03/20 01 Tdap 05/14/2021,02/06/2014 Varicella 06/10/2002 Social History Tobacco Use Types Packs/Day Years Used Date Smoking Tobacco: Never Assessed Tobacco Cessation:Counseling Given: Not Answered Housing Stability Answer Date Recorded What is your housing situation today? I have nubia cifuentes 07/25/[address] you li ve. Do you have problems with any of the following? None of the above 07/25/2024 Food Insecurity Answer Date Recorded Within the past 12 months, y ou worried that your food would run out before you got money to buy more: Never True 07/25/2024 Within the past 12 months,th e food you bought just didn't last and you didn't have enough money to get more: Never True Transportation Answer Date Recorded In the past 12 months, has l ack of transportation kept you from medical appts, meetings, work or from getting things needed for daily living? No 07/25/2024 Utilities Answer Date Recorded In the past 12 months, has t he electric, gas, oil or water company threatened to shut off services in your home? No 07/25/2024 Internet Access Answer Date Recorded Internet Access Q1 Yes 07/25/2024 Internet Access Q2 Not on file 07/25/2024 Sex and Gender Information Value Date Recorded Sex Assigned at Male 07/31/2022 10:21 AM EDT Legal Sex Male 10:21 AM EDT Gender Identity Male 12/20/2022 10:51 AM EDT Sexual Orientation Straight 12/28/2022 1: 33 PM EDT Last Filed Vital Signs Vital Sign Reading Time Taken Comments Blood Pressure 107/66 12/28/2022 1:44 PM EDT Pulse 98 12/28/2022 1:44 PM EDT Temperature 37.2 C (98.9 F) 12/28/2022 1:44 PM EDT Respiratory Rate 20 12/28/2022 1:44 PM EDT Oxygen Saturation 99% 12/28/2022 1:44 PM EDT Inhaled Oxygen Concentration - - Weight 124 kg (274 lb 3.2 oz) 12/28/2022 1:44 PM EDT Height - - Body Mass Index - - Plan of Treatment Health Maintenance Due Date Last Done Comments Depression Screening 2001 HIV Screening 2001 Disability Screening 2001 Alcohol/Substance Use Screening 2013 Tobacco Screening 2013 Family Planning (PISQ) 02/13/2016 Hepatitis C Screening 2019 COVID-19 Vaccine ( season) 2025 Influenza Vaccine (#1) 2025 09/08/2010 SDOH Screening 07/25/2025 07/25/2024 DTaP/Tdap/Td Vaccines (7 - Td or Tdap) 05/14/2031 05/14/2021, 02/06/2014, 03/14/2004, Additional history exists Zoster Vaccines (1 of 2) 2051 RSV Patients and Patients Aged 60 years or older (1 - 1-dose 75+ series) 02/13/2076 Pneumococcal Vaccine: Pediatrics (0 to 5 Years) and At-Risk Patients (6 to 49) Years Aged Out 2001, 2001 No longer eligibl e based on patient's age to complete this topic HIB Vaccines Completed 06/19/2002, 11/01, 2001 Hepatitis B Vaccines Completed 06/19/2002, 2001, 2001 IPV Vaccines Completed 03/31/2010, 11/30, 2001, Additional history exists Hepatitis A Vaccines Completed 04/14/2011, 03/31/20 10 HPV Vaccines Completed 11/28/2011, 07/01, 04/14/2011 Meningococcal Vaccine Aged Out 02/06/2014 No gurinder [place] eligible based on patient's age to complete this topic Meningococcal B Vaccine Aged Out No l onger eligible based on patient's age to complete this topic RSV under 20 months Aged Out No longe r eligible based on patient's age to complete this topic Rotavirus Vaccines Aged Out No longer eligible based on patient's age to complete this topic Insurance [facility] C3 Care Teams Spinning Frame Fixer Relationship Specialty Start Date End Date Analilia Colby FNP [address] [place] [address] PCP - General Family Medicine 07/21/24
== END 2025-08-12 15:22 | disposition home or self-care (01) ==
PROVIDERS: Emergency Provider Emergency Medicine
DX: H60.22 Malignant otitis externa, left ear (principal)
CPT/HCPCS: 87070; 87205; 99283; 99284

== ENCOUNTER 2025-09-16 12:55 | Emergency (ER) | payer MEDICAID, SELFPAY ==
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
--- NOTE | ~2025-09-16 | CT_ITS ---
EXAMINATION: CT CERVICAL SPINE WITHOUT CONTRAST CLINICAL INFORMATION: Neck pain COMPARISON: None available. TECHNIQUE: Axial imaging. Sagittal and coronal reconstructions. This CT examination was performed using dose optimization techniques as appropriate, variously including the following: *Automated exposure control *Adjustment of mA and/or kV according to patient size (this includes techniques or standardized protocols for targeted exams where dose is matched to indication/reason for exam; i.e. extremities or head) *Use of iterative reconstruction technique FINDINGS: Craniocervical and atlantoaxial articulation is maintained. Predens space is maintained. Straightening/slight reversal of the spinal curvature. No evidence of acute fracture or subluxation. Disc spaces are preserved. No prevertebral soft tissue swelling. Esophagus appears unremarkable. No suspicious thyroid findings. No pneumothorax in lung apices. There are multiple radiodense foci with streak artifact in the left lower skull base, including the region of the left mastoid and the soft tissues in this region.. CT/CT cervical spine wo IV con IMPRESSION: No CT evidence of acute fracture or traumatic subluxation. Multiple radiodense foci with streak artifact in the region of the left lower skull base. This is better evaluated on CT head. See CT head report. Fleischner guidelines were followed. Electronically signed by: Huan Cheek MD 09/16/2025 02:07 PM [facility]
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
[2025-09-16 12:59] VITALS: BP 155/114; PULSE 103; RESP 22; O2SAT 99; BMI 31.2
[2025-09-16 13:02] VITALS: BP 96/68; PULSE 91; O2SAT 97
[2025-09-16 13:04] VITALS: BP 111/75; PULSE 106
[2025-09-16 13:13] LABS: Hematocrit 41.3 % (42.0-52.0); Hemoglobin 14.4 g/dl (14.0-18.0); Imm Gran Abs Auto 0.03 X10*3/uL (0.00-0.03); Imm Gran Pct Auto 0.3 % (0.0-0.4); Lymphocytes Absolute Auto 5.1 X10*3/uL (1.2-4.9); MANUAL DIFF FLAG SCAN; Mean Corpuscular HGB Conc 34.9 g/dl (31.0-36.0); Mean Corpuscular Hemoglobin 29.4 pg (27.0-33.0); Mean Corpuscular Volume 84.5 fL (80.0-98.0); NRBC Abs Auto 0.000 X10*3/uL (0.0-0.012); NRBC Pct Auto 0.0 /100WBC (0.0-0.2); Platelet Count 247 X10*3/uL (160-400); Red Blood Count 4.89 X10*6/uL (4.60-5.80); SCAN SMEAR FLAG 1; White Blood Count 11.1 X10*3/uL (4.8-10.8)
[2025-09-16 13:26] LABS: Alanine Aminotransferase 13 U/L (0-40); Albumin Level 4.7 g/dL (3.5-5.0); Alkaline Phosphatase 85 U/L (39-117); Anion Gap 19 (12-20); Aspartate Amino Transferase 21 U/L (5-37); Blood Urea Nitrogen 10 mg/dL (9-16); Calcium 9.1 mg/dL (8.4-10.2); Carbon Dioxide 19 mmol/L (22-29); Chloride 106 mmol/L (96-108); Estimated Glomerular Filt Rate > 60; Lipase 13 U/L (8-78); Magnesium 1.8 mg/dL (1.6-2.6); Potassium 3.3 mmol/L (3.3-5.1); Sodium 141 mmol/L (135-145); Total Protein 7.4 g/dL (6.5-8.0)
[2025-09-16 13:30] VITALS: BP 112/53; PULSE 90; O2SAT 98
[2025-09-16] MEDS: iohexoL 350 MG/ML 100 ML INFUS..BTL IV (13:36)
--- NOTE | 2025-09-16 13:38 | PC.NURSE ---
alert. sr on monitor, ct complete, bleeding controlled with pressure dressins to back and l upper thigh, c/o decreased sensation in r leg with some numbness, aware, 2 l lr infusiing, iv b/l arms l ac and r forearm
[2025-09-16 13:42] VITALS: BP 143/88; PULSE 111; RESP 18; O2SAT 100
--- NOTE | 2025-09-16 13:48 | PC.NURSE ---
Report called to Anne PALUMBO at [facility]
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
[2025-09-16 13:57] VITALS: BP 143/88; PULSE 111; RESP 18; TEMP -17.7; TEMP 0; O2SAT 100
--- OUTSIDE RECORDS SUMMARY | 2025-09-16 14:05 | XMS_ITS | Encounter Summary ---
Author Organization [facility] Address [address] [place] [address] Care Team Providers Care Business Management Manager Name Role Phone Pcp, No Primary Care Provider Unavailabl e Encounter Details Date Type Department Care Team (Late st Contact Info) Description 09/16/2025 2:05 PM EST Ancillary Procedure [facility] Radiology [address] [place] [address] Provider, File Room Arrived Social History Tobacco Use Types Packs/Day Years Used Date Smoking Tobacco: Never Assessed Sex and Gender Information Value Date Recorded Sex Assigned at Not on file Legal Sex Male 6:31 PM EDT Gender Identity Not on file Sexual Orientation Not on file documented as of this encounter Plan of Treatment Not on file documented as of this encounter Procedures Procedure Name Priority Date/Time Associated Diagnosis Comments CT SPINE ARCHIVE FOR REFERENCE ONLY Routine 09/16/2025 2:04 PM EST documented in this encounter Results * CT Spine Archive for Reference Only (09/16/2025 2:04 PM EST) Nina OLIMPIA - 09/16/2025 2:04 PM EST This study has been auto finalized and does not contain a result. us File Room Provider IMG DIGITIZE FILMS Final Resu lt OLIMPIA [phone] documented in this encounter Visit Diagnoses Not on filedocumented in this encounter Care Teams Business Management Manager Relationship Specialty Start Date End Date Pcp, No PCP - General General Medicine 06/02/19 documented as of this encounter
--- OUTSIDE RECORDS SUMMARY | 2025-09-16 14:10 | XMS_ITS | Encounter Summary ---
Author Organization [facility] Address [address] [place] [address] Care Team Providers Care Boatbuilder Supervisor Name Role Phone Pcp, No Primary Care Provider Unavailabl e Encounter Details Date Type Department Care Team (Late st Contact Info) Description 09/16/2025 2:10 PM EST Ancillary Procedure [facility] Radiology [address] [place] [address] Provider, File Room Arrived Social History Tobacco [...] Name Priority Date/Time Associated Diagnosis Comments CT ABDOMEN ARCHIVE FOR REFERENCE ONLY Routine 09/16/2025 2:04 PM EST documented in this encounter Results * CT Abdomen Archive for Reference Only (09/16/2025 2:04 PM EST) Nian OLIMPIA - 09/16/2025 2:04 PM EST This study has been auto finalized and does not contain a result. us File Room Provider IMG DIGITIZE FILMS Final Resu lt OLIMPIA [phone] documented in this encounter Visit Diagnoses Not on filedocumented in this encounter Care Teams Boatbuilder Supervisor Relationship Specialty Start Date End Date Pcp, No PCP - General General Medicine 06/02/19 documented as of this encounter
--- OUTSIDE RECORDS SUMMARY | 2025-09-16 14:15 | XMS_ITS | Encounter Summary ---
Author Organization [facility] Address [address] [place] [address] Care Team Providers Care Vacuum Conditioner Operator Name Role Phone Pcp, No Primary Care Provider Unavailabl e Encounter Details Date Type Department Care Team (Late st Contact Info) Description 09/16/2025 2:15 PM EST Ancillary Procedure [facility] Radiology [address] [place] [address] Provider, File Room Arrived Social History Tobacco [...] Name Priority Date/Time Associated Diagnosis Comments CT HEAD ARCHIVE FOR REFERENCE ONLY Routine 09/16/2025 2:05 PM EST documented in this encounter Results * CT Head Archive for Reference Only (09/16/2025 2:05 PM EST) Nina OLIMPIA - 09/16/2025 2:05 PM EST This study has been auto finalized and does not contain a result. us File Room Provider IMG DIGITIZE FILMS Final Resu lt OLIMPIA [phone] documented in this encounter Visit Diagnoses Not on filedocumented in this encounter Care Teams Vacuum Conditioner Operator Relationship Specialty Start Date End Date Pcp, No PCP - General General Medicine 06/02/19 documented as of this encounter
--- OUTSIDE RECORDS SUMMARY | 2025-09-16 14:20 | XMS_ITS | Encounter Summary ---
Author Organization [facility] Address [address] [place] [address] Care Team Providers Care Baseball Winder Name Role Phone Pcp, No Primary Care Provider Unavailabl e Encounter Details Date Type Department Care Team (Late st Contact Info) Description 09/16/2025 2:20 PM EST Ancillary Procedure [facility] Radiology [address] [place] [address] Provider, File Room Arrived Social History Tobacco [...] Name Priority Date/Time Associated Diagnosis Comments CT CHEST ARCHIVE FOR REFERENCE ONLY Routine 09/16/2025 2:05 PM EST documented in this encounter Results * CT Chest Archive for Reference Only (09/16/2025 2:05 PM EST) Nina OLIMPIA - 09/16/2025 2:05 PM EST This study has been auto finalized and does not contain a result. us File Room Provider IMG DIGITIZE FILMS Final Resu lt OLIMPIA [phone] documented in this encounter Visit Diagnoses Not on filedocumented in this encounter Care Teams Baseball Winder Relationship Specialty Start Date End Date Pcp, No PCP - General General Medicine 06/02/19 documented as of this encounter
--- OUTSIDE RECORDS SUMMARY | 2025-09-16 17:34 | XMS_ITS ---
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 exam was performed with one or more of the following dose reduction techniques: automated exposure control, adjustment of the mA and/or kV according to patient size, use of iterative reconstruction technique. DLP: 1876 mGy-cm CHEST: THYROID: The thyroid is unremarkable. LUNGS: There is dependent atelectasis bilaterally. MEDIASTINUM: There is no mediastinal lymphadenopathy. SAMSON: There is no hilar lymphadenopathy. CARDIOVASCULATURE: The heart is normal in size. There is no pericardial effusion. The thoracic aorta is normal in caliber. DEGREE OF CORONARY CALCIFICATION: none PLEURA: There is no pleural effusion. No pneumothorax. MAIN AIRWAYS: The mainstem bronchi and proximal branches are patent. AXILLA: There is no axillary lymphadenopathy. SOFT TISSUES: Unremarkable. BONES: The bones are intact. ABDOMEN: LIVER: The liver is normal in size and contour. No liver mass is identified. The hepatic and portal veins are patent. GALLBLADDER / BILE DUCTS: The gallbladder is unremarkable. There is no intra or extrahepatic biliary ductal dilatation. SPLEEN: The spleen is normal in size. No focal splenic lesion is identified. PANCREAS: The pancreas is unremarkable in appearance. ADRENAL GLANDS: Within normal limits. KIDNEYS/RETROPERITONEUM: No renal calculi are identified. There is no hydronephrosis. No renal masses are identified. LYMPH NODES: No abdominal or pelvic lymphadenopathy. VASCULATURE: The abdominal aorta is normal in caliber. MESENTERY/PERITONEUM: No free fluid. No masses. There is no free intraperitoneal gas. STOMACH: The stomach is unremarkable. SMALL BOWEL: The small bowel is normal in caliber. COLON: The colon is unremarkable. APPENDIX: The appendix is surgically absent. URINARY BLADDER/PELVIC ORGANS: The urinary bladder is unremarkable. The prostate is normal in size. BONES / SOFT TISSUES: There is a small amount of gas surrounding inflammatory stranding in the anterior abdominal wall just above the umbilicus which could be sequela of a stab wound or subcutaneous injection. There is a rounded lucency in the L4 vertebral body which is larger than on the prior study. No fracture is seen. CT/CT chest w IV con IMPRESSION: 1. No evidence of traumatic visceral injury to the chest, abdomen, or pelvis. 2. Rounded lucency in the L4 vertebral body which is larger than on the prior study. Nonemergent outpatient MRI is suggested for further evaluation. Electronically signed by: Seth Rodriguez MD 09/16/2025 02:09 PM [facility] [place] Dictated By: Seth Rodriguez MD Signed By: <Electronically signed by Seth Rodriguez MD in OV> 09/16/25 1409 DD/ 1327
--- OUTSIDE RECORDS SUMMARY | 2025-09-16 17:34 | XMS_ITS | Clinical Summary ---
Author Organization [employer] Address [address] [facility] [address] [place] [address] Care Team Providers Care Department Sales Manager Name Role Phone [email or web address] VINEET Primary Care Provider [phone] Medications acetaminophen (Tylenol) 500 MG tablet Take by mouth. 3 tabs daily at once by mouth Active Active Problems Problem Noted Date Diagnosed Date Compartment syndrome of left lower extremity Overview (11/15/2022): And tibial plateau fx, admission at [facility] 11/07-11/10/22, underwent 4 compartment fasciotomy Assessment & Plan (12/28/2022 2:00 PM EDT): Patient is here for a HDF Admitted to [facility] from 11/07-11/10 with LLE hyperextension injury presented [...] Plan: Ortho referral F/u with PCP afterwards Encounters Date Type Department Care Team Description 09/16/2025 Orders Only [facility] External Provider, [facility] 08/12/2025 Orders Only GENERIC EXTERNAL DATA DEPARTMENT Provider, Generic External Data from Last 3 Months Immunizations Immunization Administration Dates Next Due DTaP 03/14/2004,12/24/2002,06/19/2002 ,2001 HPV, Quadrivalent 11/28/2011,07/15/2011,04/14/20 11 Hep A, ped/adol, 2 dose 04/14/2011,03/31/2010 Hep B, Adolescent or Pediatric 06/19/2002,2001,2001 Hib (HbOC) 06/19/2002,2001,2001 IPV 03/31/2010,12/24/2002,2001 ,2001 Influenza, IIV3, injectable 09/08/2010 MMR 06/19/2002 MMRV 03/31/2010 Meningococcal MCV4P ACYW-135 02/06/2014 Pneumococcal Conjugate PCV 7 2001,05/03/20 Tdap 05/14/2021,02/06/2014 Varicella 06/10/2002 Social History Tobacco [...] on patient's age to complete this topic Procedures Procedure Name Priority Date/Time Associated Diagnosis Comments CT ABDOMEN PELVIS W CONTRAST Routine 09/16/2025 1:[address] CHEST W CONTRAST Routine 09/16/2025 1 :[address] CERVICAL SPINE WO CONTRAST Routine 09/16/2025 1:[address] HEAD WO CONTRAST Routine 09/16/2025 1 :20 PM EST TYPE AND SCREEN Routine 09/16/2025 1:09 PM EST HOLD GREEN GEL Routine 09/16/2025 1:01 PM EST SLIDE REVIEW Routine 09/16/2025 1:01 PM EST LIPASE Routine 09/16/2025 1:01 PM EST MAGNESIUM Routine 09/16/2025 1:01 PM EST HEPATIC FUNCTION PANEL Routine 1:01 PM EST COMPREHENSIVE METABOLIC PANEL Routine 09/16/2025 1:01 PM EST CBC WITH AUTO DIFFERENTIAL Routine 09/16/2025 1:01 PM EST GRAM STAIN RESULT (NON ORDERABLE) Routine 08/12/2025 3:19 PM EST from Last 3 Months Results * CT Abdomen Pelvis w/ Contrast (09/16/2025 1:20 PM EST) Anatomical Region Laterality Modality Body, Pelvis, Abdomen Computed T omography 09/16/2025 1:20 PM EST Narrative 09/16/2025 2:11 PM EST [place] [address] CT Scan Report Signed Patient: Genaro Dee MR#: [id number] [birth year] : 2000 Acct:[id number] Age/Sex: 25 / M ADM Date: 09/16/25 Loc: .ED Attending Dr: Ordering Physician: Allan Padilla MD Date of Service: 09/16/25 Procedure(s): CT abdomen pelvis w IV con Accession Number(s): [id number] cc: [facility]; Allan Padilla MD Report Number: [id number]: Total DLP = 9472.00 mGy-cm Reason for [...] by: Seth Rodriguez MD 09/16/2025 02:09 PM [facility] Dictated By: Seth Rodriguez MD Signed By: <Electronically signed by Seth Rodriguez MD in OV> 09/16/25 1409 DD/ 1320 TD/TT: 09/16/25 1354 J2Ee Programmer: Procedure Note Donotuseinterpreter, Image - 09/16/[address] [address] [address] Scan Report Signed Patient: Trista Dee#: [id number] [birth year] : 2000Acct:[id number] Age/Sex: 25 / MADM Date: 09/16/25 Loc: HO.ED Attending Dr: Ordering Physician: Allan Padilla MD Date of Service: 09/16/25 Procedure(s): CT abdomen pelvis w IV con Accession Number(s): [id number] cc: [facility]; Allan Padilla MD Report Number: [id number]: Total DLP = 9472.00 mGy-cm Reason for [...] 09/16/25 1409 DD/ 1320 TD/TT: 09/16/25 1354 J2Ee Programmer: [facility] External Provider IMG CT PROCEDURES Final Result * CT Cervical Spine w/o Contrast (09/16/2025 1:20 PM EST) Anatomical Region Laterality Modality Spine, C-spine Computed Tomogra phy 09/16/2025 1:20 PM EST Narrative 09/16/2025 2:10 PM EST [address] [address] [address] Scan Report Signed Patient: Genaro Dee MR#: [id number] 28 : 2000 Acct:[id number] Age/Sex: 25 / M ADM Date: 09/16/25 Loc: HO.ED Attending Dr: Ordering Physician: Allan Padilla MD Date of Service: 09/16/25 Procedure(s): CT cervical spine wo IV con Accession Number(s): [id number] cc: [facility]; Allan Padilla MD Report Number: [id number]: Total DLP = 0.00 mGy-cm Reason for [...] 09/16/25 1407 DD/ 1320 TD/TT: 09/16/25 1354 J2Ee Programmer: KINGS Procedure Note Donotuseinterpreter, Image - 09/16/[address] [place] [address] [address] Scan Report Signed Patient: Trista Dee#: [id number] [birth year] : 2000Acct:[id number] Age/Sex: 25 / MADM Date: 09/16/25 Loc: HO.ED Attending Dr: Ordering Physician: Allan Padilla MD Date of Service: 09/16/25 Procedure(s): CT cervical spine wo IV con Accession Number(s): [id number] cc: [facility]; Allan Padilla MD Report Number: [id number]: Total DLP = 0.00 mGy-cm Reason for [...] 09/16/25 1407 DD/ 1320 TD/TT: 09/16/25 1354 J2Ee Programmer: KINGS [facility] External Provider IMG CT PROCEDURES Final Result * CT Chest w/ Contrast (09/16/2025 1:20 PM EST) Anatomical Region Laterality Modality Body, Chest Computed Tomogra phy 09/16/2025 1:20 PM EST Narrative 09/16/2025 2:11 PM EST [place] [address] CT Scan Report Signed Patient: Genaro Dee MR#: [id number] [birth year] : 2000 Acct:[id number] Age/Sex: 25 / M ADM Date: 09/16/25 Loc: HO.ED Attending Dr: Ordering Physician: Allan Padilla MD Date of Service: 09/16/25 Procedure(s): CT chest w IV con Accession Number(s): [id number] cc: [facility]; Allan Padilla MD Report Number: [id number]: Total DLP = 0.00 mGy-cm Reason for [...] 09/16/25 1409 DD/ 1320 TD/TT: 09/16/25 1354 J2Ee Programmer: Procedure Note Donotuseinterpreter, Image - 09/16/[address] [address] [address] Scan Report Signed Patient: Trista Dee#: [id number] [birth year] : 2000Acct:[id number] Age/Sex: 25 / MADM Date: 09/16/25 Loc: .ED Attending Dr: Ordering Physician: Allan Padilla MD Date of Service: 09/16/25 Procedure(s): CT chest w IV con Accession Number(s): [id number] cc: [facility]; Allan Padilla MD Report Number: [id number]: Total DLP = 0.00 mGy-cm Reason for [...] by: Seth Rodriguez MD 09/16/2025 02:09 PM [facility] Dictated By: Seth Rodriguez MD Signed By: <Electronically signed by Seth Rodriguez MD in OV> 09/16/25 1402 DD/ 1320 TD/TT: 09/16/25 1351 J2Ee Programmer: us [facility] External Provider IMG CT PROCEDURES Final Result * CT Head w/o Contrast (09/16/2025 1:20 PM EST) Anatomical Region Laterality Modality Head, Neck Computed Tomogra phy 09/16/2025 1:20 PM EST Narrative 09/16/2025 2:07 PM EST [address] [address] [address] Scan Report Signed Patient: Genaro Dee MR#: [id number] 28 : 2000 Acct:[id number] Age/Sex: 25 / M ADM Date: 09/16/25 Loc: HO.ED Attending Dr: Ordering Physician: Allan Padilla MD Date of Service: 09/16/25 Procedure(s): CT head/brain wo IV con Accession Number(s): [id number] cc: [facility]; Allan Padilla MD Report Number: [id number]: Total DLP = 0.00 mGy-cm Reason for [...] by: Kevin Caro MD 09/16/2025 02:04 PM [facility] Dictated By: Kevin Caro MD Signed By: <Electronically signed by Kevin Caro MD in OV> 09/16/25 1404 DD/ 1320 TD/TT: 09/16/25 1354 J2Ee Programmer: Procedure Note Donotuseinterpreter, Image - 09/16/[address] [place] [address] [address] Scan Report Signed Patient: Trista Dee#: [id number] 28 : 2000Acct:[id number] Age/Sex: 25 / MADM Date: 09/16/25 Loc: HO.ED Attending Dr: Ordering Physician: Allan Padilla MD Date of Service: 09/16/25 Procedure(s): CT head/brain wo IV con Accession Number(s): [id number] cc: [facility]; Allan Padilla MD Report Number: [id number]: Total DLP = 0.00 mGy-cm Reason for [...] 09/16/25 1404 DD/ 1320 TD/TT: 09/16/25 1354 J2Ee Programmer: [facility] External Provider IMG CT PROCEDURES Final Result * Type and screen (09/16/2025 1:09 PM EST) Blood Type OP [facility] Antibody Screen NEGATIVE [facility] 09/16/2025 1:09 PM EST 09/16/2025 1:18 PM EST Generic External Data Provider LAB BLOOD BANK TE ST ORDERABLES Final Result Performing Organization Address [facility]/ZIP Co de Phone Number [facility] [address] [place] [address] [phone] * Hold Green Gel (09/16/2025 1:01 PM EST) Hold Green Gel See Note [facility] Comment:Specimen held untest ed for 24 hours; Call to requestChemistry testing. 09/16/2025 1:01 PM EST 09/16/2025 1:06 PM EST Generic External Data Provider HISTORICAL/NON OR DERABLE LABS Final Result Performing Organization Address [facility]/ZIP Co de Phone Number [facility] [address] [place] [address] [phone] * Slide Review (09/16/2025 1:01 PM EST) Slide Review VERIFIED [facility] 09/16/2025 1:01 PM EST 09/16/2025 1:05 PM EST Generic External Data Provider LAB BLOOD ORDERAB LES Final Result Performing Organization Address [facility] Co de Phone Number [facility] [address] [place] [address] [phone] * (ABNORMAL) CBC auto differential (09/16/2025 1:01 PM EST) White Blood Count 11.1(H) 4.8 - 10.8 X10*3/uL [facility] Red Blood Count 4.89 4.60 - 5.80 X10*6/uL [facility] Hemoglobin 14.4 14.0 - 18.0 g/dl [facility] Hematocrit 41.3(L) 42.0 - 52.0 % [facility] Mean Corpuscular Volume 84.5 80.0 - 98.0 fL [facility] Mean Corpuscular Hemoglobin 29.4 27.0 - 33.0 pg [facility] Mean Corpuscular HGB Conc 34.9 31.0 - 36.0 g/dl [facility] Red Cell Distribution Width 13.2 11.0 - 16.0 % [facility] Platelet Count 247 160 - 400 X10*3/uL [facility] Mean Platelet Volume 10.5 9.4 - 12.4 fL [facility] Neutrophils Percent Auto 45.7 45 - 73 % [facility] Imm Gran Pct Auto 0.3 0.0 - 0.4 % [facility] Lymphocytes Percent Auto 45.7(H) 20 - 40 % [facility] Monocytes Percent Auto 6.1 2 - 11 % [facility] Eosinophils Percent Auto 1.7 0 - 4 % [facility] Basophils Percent Auto 0.5 0 - 2 % [facility] NRBC Pct Auto 0.0 0.0 - 0.2 /100WBC [facility] Neutrophils Absolute Auto 5.1 2.0 - 8.3 x10*3/uL [facility] Imm Gran Abs Auto 0.03 0.00 - 0.03 X10*3/uL [facility] Lymphocytes Absolute Auto 5.1(H) 1.2 - 4.9 X10*3/uL [facility] Monocytes Absolute Auto 0.7 0.1 - 1.2 X10*3/uL [facility] Eosinophils Absolute Auto 0.2 0.0 - 0.4 X10*3/uL [facility] Basophils Absolute Auto 0.1 0.0 - 0.2 X10*3/uL [facility] NRBC Abs Auto 0.000 0.0 - 0.012 X10*3/uL [facility] 09/16/2025 1:01 PM EST 09/16/2025 1:05 PM EST us Generic External Data Provider LAB BLOOD ORDERAB LES Edited Result - Final Performing Organization Address [facility] Co de Phone Number [facility] [address] [place] [phone] * Magnesium (09/16/2025 1:01 PM EST) Magnesium 1.8 1.6 - 2.6 mg/dL [facility] 09/16/2025 1:01 PM EST 09/16/2025 1:05 PM EST us Generic External Data Provider LAB BLOOD ORDERAB LES Final Result Performing Organization Address [facility] Phone Number [facility] [address] [place] [phone] * Lipase (09/16/2025 1:01 PM EST) Lipase 13 8 - 78 U/L [facility] 09/16/2025 1:01 PM EST 09/16/2025 1:05 PM EST us Generic External Data Provider LAB BLOOD ORDERAB LES Final Result Performing Organization Address [facility] de Phone Number [facility] [address] [place] [phone] * Hepatic Function Panel (09/16/2025 1:01 PM EST) Bilirubin, Direct 0.2 0.0 - 0.5 mg/dL [facility] 09/16/2025 1:01 PM EST 09/16/2025 1:05 PM EST us Generic External Data Provider LAB BLOOD ORDERAB LES Final Result Performing Organization Address [facility] Co de Phone Number [facility] [address] [place] [address] [phone] * (ABNORMAL) Comprehensive Metabolic Panel (09/16/2025 1:01 PM EST) Sodium 141 135 - 145 mmol/L [facility] Potassium 3.3 3.3 - 5.1 mmol/L [facility] Chloride 106 96 - 108 mmol/L [facility] Carbon Dioxide 19(L) 22 - 29 mmol/L [facility] Anion Gap 19 12 - 20 [facility] Urea Nitrogen (BUN) 10 9 - 16 mg/dL [facility] Creatinine, Serum 0.74 0.5 - 1.4 mg/dL [facility] Creatinine Clr Calc Pharmacy TNP [facility] Comment:Unable to calculate eCrCL; all parameters not provided. Estimated Glomerular Filt Rate >60 [facility] Comment:Chronic Kidney Disea se: Estimated GFR < 60 mL/min/1.03y8Ixlvvg Kidney Disease: Estimated GFR < 15 mL/min/1.73m2 Glucose 125(H) 60 - 115 mg/dL [facility] Calcium 9.1 8.4 - 10.2 mg/dL [facility] Bilirubin, Total 0.7 0.0 - 1.0 mg/dL [facility] Aspartate Amino Transferase 21 5 - 37 U/L [facility] Alanine Aminotransferase 13 0 - 40 U/L [facility] Total Protein 7.4 6.5 - 8.0 g/dL [facility] Albumin Level 4.7 3.5 - 5.0 g/dL [facility] Alkaline Phosphatase 85 39 - 117 U/L [facility] 09/16/2025 1:01 PM EST 09/16/2025 1:05 PM EST us Generic External Data Provider LAB BLOOD ORDERAB LES Final Result [facility] [address] [place] [phone] * Gram Stain Result (08/12/2025 3:19 PM EST) 08/12/2025 3:19 PM EST 08/12/2025 3:22 PM EST Comment:Ear Left Narrative [facility] - 08/15/2025 9:54 AM EST Gram stain results: No polys 2+ epithelial cells 3+ Gram-positive rods 1+ Gram-positive cocci Ear Culture Report - external Ear Culture 4+ Mixed skin narayan Specimen Source: Ear Left us Generic External Data Provider HISTORICAL/NON OR DERABLE LABS Final Result [facility] [address] [place] [phone] [phone] from Last 3 Months Insurance [facility] C3 Care Teams Department Sales Manager Relationship Specialty Start Date End Date Analilia Colby FNP [address] [place] [phone] PCP - General Family Medicine 07/21/24
--- OUTSIDE RECORDS SUMMARY | 2025-09-16 17:34 | XMS_ITS | Clinical Summary ---
Author Organization [facility] Address [address] [place] [address] Care Team Providers Care Deputy City Clerk Name Role Phone Pcp, No Primary Care Provider Unavailabl e Allergies No known active allergies Medications ibuprofen (MOTRIN) 800 mg tablet Take 1 tablet (800 mg total) by mouth 3 times daily (every 8 hours). 90 tablet 0 Active azithromycin (ZITHROMAX) 250 MG tablet Take two on first day, then one daily for four additional days 6 tablet 0 Active Encounters Date Type Department Care Team Description 09/16/2025 2:20 PM EST Ancillary Procedure [facility] [address] [place] [phone] Provider, File Room Arrived 09/16/2025 2:15 PM EST Ancillary Procedure [facility] [address] [place] [phone] Provider, File Room Arrived 09/16/2025 2:10 PM EST Ancillary Procedure [facility] [address] [place] [phone] Provider, File Room Arrived 09/16/2025 2:05 PM EST Ancillary Procedure [facility] [address] [place] [phone] Provider, File Room Arrived from Last 3 Months Social History Tobacco Use Types Packs/Day Years [...] 19+ 3-dose series) 02/13/2020 Influenza Vaccine 05/01/2025 09/08/2010 COVID-19 Vaccine (1 - 2024-2 6 season) 2025 Pneumococcal Vaccine: Pediat brittany (0-5 Years) and At-Risk Patients (6 to 49 Years) Aged Out No longer eligible b ased on patient's age to complete this topic Procedures Procedure Name Priority Date/Time Associated Diagnosis Comments CT CHEST ARCHIVE FOR REFERENCE ONLY Routine 09/16/2025 2:[address] HEAD ARCHIVE FOR REFERENCE ONLY Routine 09/16/2025 2:[address] ABDOMEN ARCHIVE FOR REFERENCE ONLY Routine 09/16/2025 2:[address] SPINE ARCHIVE FOR REFERENCE ONLY Routine 09/16/2025 2:04 PM EST from Last 3 Months Results * CT Chest Archive for Reference Only (09/16/2025 2:05 PM EST) Narrative [facility] - 09/16/2025 2:05 PM EST This study has been auto finalized and does not contain a result. us File Room Provider IMG DIGITIZE FILMS Final Resu lt [facility] [phone] * CT Head Archive for Reference Only (09/16/2025 2:05 PM EST) Narrative [facility] - 09/16/2025 2:05 PM EST This study has been auto finalized and does not contain a result. us File Room Provider IMG DIGITIZE FILMS Final Resu lt Performing Organization Address [facility] Co de Phone Number [facility] [phone] * CT Abdomen Archive for Reference Only (09/16/2025 2:04 PM EST) Narrative [facility] - 09/16/2025 2:04 PM EST This study has been auto finalized and does not contain a result. us File Room Provider IMG DIGITIZE FILMS Final Resu lt Performing Organization Address [facility] de Phone Number [facility] [phone] * CT Spine Archive for Reference Only (09/16/2025 2:04 PM EST) [facility] - 09/16/2025 2:04 PM EST This study has been auto finalized and does not contain a result. us File Room Provider IMG DIGITIZE FILMS Final Resu lt Performing Organization Address [facility] de Phone Number [facility] [phone] from Last 3 Months Insurance MEDICAID OUT OF STATE [facility] Care Teams Deputy City Clerk Relationship Specialty Start Date End Date Pcp, No PCP - General General Medicine 06/02/19
--- OUTSIDE RECORDS SUMMARY | 2025-09-16 17:34 | XMS_ITS ---
Author Name [facility] Organization Unknown Encounters Encounter Type Encounter Reason Primary Diagnosis Location Date [facility] 09/16/2025 [facility] 09/16/2025 [facility] 09/16/2025 [facility] 09/16/2025 Care Team Organization Name Specialty Phone Email Start Date End Da te [facility] PCP Manager [place] 09/16/2025 [facility] NO PCP Primary Care 09/16/2025
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
== END 2025-09-16 13:59 | disposition short-term general hospital (02) ==
PROVIDERS: Physician Assistant; Emergency Provider Emergency Medicine Emergency Medical Services
DX: S31.010A Laceration without foreign body of lower back and pelvis without penetration into retroperitoneum, initial encounter (principal); S71.112A Laceration without foreign body, left thigh, initial encounter; S71.111A Laceration without foreign body, right thigh, initial encounter; S31.119A Laceration without foreign body of abdominal wall, unspecified quadrant without penetration into peritoneal cavity, initial encounter; S06.9X9A Unspecified intracranial injury with loss of consciousness of unspecified duration, initial encounter; S70.11XA Contusion of right thigh, initial encounter; X99.9XXA Assault by unspecified sharp object, initial encounter; Y93.01 Activity, walking, marching and hiking; Y93.L9 Activity, other outdoor activity; Y92.89 Other specified places as the place of occurrence of the external cause; R20.0 Anesthesia of skin; R20.2 Paresthesia of skin; M54.2 Cervicalgia
CPT/HCPCS: 36415; 70450; 71260; 72125; 74177; 76604; 76705; 80053; 80076; 82248; 83690; 83735; 85025; 86850; 86900; 86901; 93308; 96374; 99285; 99291; 99292; J3010; Q9967

== ENCOUNTER → 2025-09-16 12:59 | Outpatient (BNV) | payer MEDICAID, SELFPAY | PROVIDERS: Emergency Provider Emergency Medicine Emergency Medical Services; Visit Provider Radiology Diagnostic Radiology | DX: S31.139A Puncture wound of abdominal wall without foreign body, unspecified quadrant without penetration into peritoneal cavity, initial encounter (principal); S21.90XA Unspecified open wound of unspecified part of thorax, initial encounter; M54.2 Cervicalgia; S09.90XA Unspecified injury of head, initial encounter; J32.0 Chronic maxillary sinusitis; Y04.8XXA Assault by other bodily force, initial encounter | CPT/HCPCS: 70450; 71260; 72125; 74177 ==